=== PATIENT | female | born 1965 | race Caucasian/White ===

== ENCOUNTER → 2020-08-23 13:17 | Outpatient (BNV) | payer MEDICAID, SELFPAY | PROVIDERS: PCP Internal Medicine; Visit Provider Internal Medicine Medical Oncology | DX: C92.00 Acute myeloblastic leukemia, not having achieved remission (principal) | CPT/HCPCS: 99213; 99214 ==

== ENCOUNTER 2020-09-06 09:59 | Outpatient (REF) | payer MEDICAID, SELFPAY ==
--- NOTE | ~2020-09-06 | XR_ITS ---
EXAMINATION: XR SHOULDER, RIGHT CLINICAL INFORMATION: Pain in right shoulder COMPARISON: Pain in right shoulder TECHNIQUE: Three views of the right shoulder. FINDINGS: No fracture or dislocation. The glenohumeral joint is well aligned. Mild degenerative change with small osteophytes noted. The acromioclavicular joint is intact. The visualized lung is clear. The visualized ribs are intact. XR/XR shoulder RT min 2V IMPRESSION: No acute abnormality. Mild degenerative change of the glenohumeral joint.
== END 2020-09-06 10:00 | disposition home or self-care (01) ==
LOC: HO.HOSX 09:59
PROVIDERS: Visit Provider Physician Assistant
DX: G25.89 Other specified extrapyramidal and movement disorders (principal)
CPT/HCPCS: 73030; 99212

== ENCOUNTER 2020-09-25 14:00 | Outpatient (RCR) | payer MEDICAID, SELFPAY | END 2020-10-23 13:53 | disposition home or self-care (01) | LOC: HO.PT 14:00 | PROVIDERS: PCP Internal Medicine; Visit Provider Internal Medicine | DX: M25.511 Pain in right shoulder (principal); M54.6 Pain in thoracic spine | CPT/HCPCS: 97110; 97112; 97162 ==

== ENCOUNTER → 2020-09-25 14:36 | Outpatient (BNVA) | payer MEDICAID, SELFPAY | PROVIDERS: PCP Internal Medicine; Visit Provider Nurse Practitioner Family | DX: G25.89 Other specified extrapyramidal and movement disorders (principal); M54.2 Cervicalgia | CPT/HCPCS: 99202 ==

== ENCOUNTER 2021-08-28 12:31 | Outpatient (REF) | payer MEDICAID, SELFPAY ==
[2021-08-28 13:17] LABS: MANUAL DIFF FLAG NO
[2021-08-28 13:20] LABS: Basophils Percent Auto 0.5 % (0-2); Eosinophils Absolute Auto 0.1 X10*3/uL (0.0-0.4); Eosinophils Percent Auto 2.2 % (0-4); Hematocrit 39.9 % (37.0-47.0); Imm Gran Abs Auto 0.01 X10*3/uL (0.00-0.03); Imm Gran Pct Auto 0.2 % (0.0-0.4); Lymphocytes Absolute Auto 1.9 X10*3/uL (1.2-4.9); Lymphocytes Percent Auto 29.8 % (20-40); Mean Corpuscular HGB Conc 32.6 g/dl (31.0-35.0); Mean Corpuscular Hemoglobin 31.4 pg (27.0-33.0); Mean Corpuscular Volume 96.4 fL (80.0-98.0); Mean Platelet Volume 9.9 fL (9.4-12.3); Monocytes Absolute Auto 0.4 X10*3/uL (0.1-1.2); Monocytes Percent Auto 6.9 % (2-11); Neutrophils Absolute Auto 3.8 x10*3/uL (2.0-8.3); Neutrophils Percent Auto 60.4 % (45-73); Platelet Count 216 X10*3/uL (160-400); Red Blood Count 4.14 X10*6/uL (4.20-5.50); Red Cell Distribution Width 12.1 % (11.0-16.0); White Blood Count 6.4 X10*3/uL (4.8-10.8)
[2021-08-28 13:34] LABS: Appearance Urine CLOUDY; Color Urine YELLOW; Glucose Urine UA NEG (NEG); Leukocyte Esterase Urine 3+ (NEG); Nitrite Urine NEG (NEG); UACC Culture Trigger YES; Urine Blood TRACE (NEG); Urine Ketones NEG (NEG); Urine Protein NEG (NEG-TRACE)
[2021-08-28 13:44] LABS: Alanine Aminotransferase 14 U/L (0-31); Albumin Level 4.3 g/dL (3.5-5.0); Alkaline Phosphatase 84 U/L (39-117); Anion Gap 11 (12-20); Aspartate Amino Transferase 19 U/L (5-31); Bilirubin Total 0.5 mg/dL (0.0-1.0); Blood Urea Nitrogen 14 mg/dL (9-16); C Reactive Protein 0.86 mg/dL (< or = 0.50); Calcium 9.7 mg/dL (8.4-10.2); Carbon Dioxide 28 mmol/L (22-29); Chloride 104 mmol/L (96-108); Estimated Glomerular Filt Rate > 60; Glucose Random 92 mg/dL (60-115); Potassium 4.6 mmol/L (3.3-5.1); Sodium 138 mmol/L (135-145); Total Protein 7.7 g/dL (6.5-8.0)
[2021-08-28 13:53] LABS: Bacteria Urine 2+ /LPF; Squamous Epithelial Cell Urine 1+ /LPF
== END 2021-08-28 12:32 | disposition home or self-care (01) ==
LOC: HO.10HDL 12:31
PROVIDERS: Visit Provider Internal Medicine
DX: R30.0 Dysuria (principal); K21.9 Gastro-esophageal reflux disease without esophagitis
CPT/HCPCS: 36415; 80053; 81001; 85025; 86140; 87086; 87088; 87186

== ENCOUNTER 2021-09-11 07:49 | Outpatient (REF) | payer MEDICAID, SELFPAY | END 2021-09-11 07:50 | disposition home or self-care (01) | LOC: HO.LAB 07:49 | PROVIDERS: PCP Internal Medicine; Visit Provider Obstetrics & Gynecology | DX: Z01.419 Encounter for gynecological examination (general) (routine) without abnormal findings (principal); R35.0 Frequency of micturition; N85.00 Endometrial hyperplasia, unspecified; J30.9 Allergic rhinitis, unspecified; Z88.8 Allergy status to other drugs, medicaments and biological substances | CPT/HCPCS: 58100; 87086; 87088; 87186; 88305 ==

== ENCOUNTER 2021-09-25 10:58 | Outpatient (REF) | payer MEDICAID, SELFPAY ==
--- NOTE | ~2021-09-25 | MM_ITS ---
EXAMINATION: MM SCREENING DIGITAL BREAST TOMOSYNTHESIS, BILATERAL CLINICAL INFORMATION: Screening. Asymptomatic. Age 56. Search for local priors unsuccessful. Prior outside mammography at unknown facility. The lifetime risk of breast cancer based on the Tyrer-Cuzick Model is 9%. COMPARISON: None. TECHNIQUE: Digital breast tomosynthesis is performed in both the craniocaudal and mediolateral oblique views along with computer-aided detection (CAD). Synthesized 2D images are generated from the tomosynthesis. FINDINGS: There are scattered areas of fibroglandular density (ACR BI-RADS breast composition Category b). There are no significant masses, abnormal calcifications, or other abnormalities. There is a fine fibronodular parenchymal pattern. No architectural abnormality. The axilla and skin contours are unremarkable. MM/MM tomosynthesis screening BI IMPRESSION: No mammographic evidence of malignancy. ASSESSMENT: BI-RADS 1: Negative RECOMMENDATION: Routine annual mammography screening. This patient's information was entered into a reminder system with a target due date for their next mammogram.
== END 2021-09-25 10:59 | disposition home or self-care (01) ==
LOC: HO.MAMMO 10:58
PROVIDERS: PCP Internal Medicine; Visit Provider Internal Medicine
DX: Z12.31 Encounter for screening mammogram for malignant neoplasm of breast (principal)
CPT/HCPCS: 77063; 77067

== ENCOUNTER 2021-10-02 10:29 | Outpatient (REF) | payer MEDICAID, SELFPAY | END 2021-10-02 10:30 | disposition home or self-care (01) | LOC: HO.LAB 10:29 | PROVIDERS: PCP Internal Medicine; Visit Provider Obstetrics & Gynecology | DX: N85.00 Endometrial hyperplasia, unspecified (principal); N39.0 Urinary tract infection, site not specified | CPT/HCPCS: 87086; 99212 ==

== ENCOUNTER 2021-10-04 14:00 | Outpatient (RCR) | payer MEDICAID, SELFPAY | END 2021-10-21 12:45 | disposition home or self-care (01) | LOC: HO.PT 14:00 | PROVIDERS: PCP Internal Medicine; Visit Provider Internal Medicine | DX: M25.511 Pain in right shoulder (principal) | CPT/HCPCS: 97110; 97112; 97162 ==

== ENCOUNTER 2022-03-25 14:03 | Outpatient (REF) | payer MEDICAID, SELFPAY ==
[2022-03-25 15:08] LABS: Influenza A PCR NEGATIVE (Negative); Influenza B PCR NEGATIVE (Negative); Resp Syncy Virus RNA Qual PCR NEGATIVE (Negative); SARS COV2 PCR INHOUSE NEGATIVE (Negative)
== END 2022-03-25 14:04 | disposition home or self-care (01) ==
LOC: HO.LNP 14:03
PROVIDERS: Visit Provider Internal Medicine
DX: Z20.822 Contact with and (suspected) exposure to COVID-19 (principal); R05.9 Cough, unspecified; J02.9 Acute pharyngitis, unspecified
CPT/HCPCS: 0241U

== ENCOUNTER 2022-10-08 07:57 | Outpatient (REF) | payer MEDICAID, SELFPAY ==
--- NOTE | ~2022-10-08 | XR_ITS ---
EXAMINATION: XR KNEE, RIGHT CLINICAL INFORMATION: Pain. COMPARISON: None available. TECHNIQUE: Four views of the right knee. FINDINGS: Bones and soft tissues are normal. No fracture or joint effusion. Alignment is anatomic. Joint spaces are well maintained. No abnormal soft tissue calcification. XR/XR knee RT 2V IMPRESSION: Normal right knee.
[2022-10-08 09:45] LABS: Erythrocyte Sedimentation Rate 16 MM/HR (0-20)
[2022-10-09 19:59] LABS: Lyme Abs Screen <0.90 index
== END 2022-10-08 07:58 | disposition home or self-care (01) ==
LOC: HO.XRAY 07:57
PROVIDERS: PCP Internal Medicine; Visit Provider Psychiatry & Neurology Neurology
DX: M25.561 Pain in right knee (principal)
CPT/HCPCS: 36415; 73560; 85652; 86617; 86618

== ENCOUNTER 2022-11-07 09:51 | Outpatient (REF) | payer MEDICAID, SELFPAY ==
--- NOTE | ~2022-11-07 | MM_ITS ---
EXAMINATION: MM SCREENING DIGITAL BREAST TOMOSYNTHESIS, BILATERAL CLINICAL INFORMATION: Screening. Asymptomatic. The lifetime risk of breast cancer based on the Tyrer-Cuzick Model is 10%. COMPARISON: Mammography: 09/25/2021 (new baseline). TECHNIQUE: Digital breast tomosynthesis is performed in both the craniocaudal and mediolateral oblique views along with computer-aided detection (CAD). Synthesized 2D images are generated from the tomosynthesis. Additional bilateral CC views are provided. FINDINGS: There are scattered areas of fibroglandular density (ACR BI-RADS breast composition Category b). There are no significant masses, abnormal calcifications, or other abnormalities. Parenchymal pattern is similar to prior studies. There is no developing density or architectural abnormality. The axilla and skin contours are unremarkable. No significant changes. MM/MM tomosynthesis screening BI IMPRESSION: No mammographic evidence of malignancy. ASSESSMENT: BI-RADS 1: Negative RECOMMENDATION: Routine annual mammography screening. This patient's information was entered into a reminder system with a target due date for their next mammogram.
== END 2022-11-07 09:52 | disposition home or self-care (01) ==
LOC: HO.MAMMO 09:51
PROVIDERS: PCP Internal Medicine; Visit Provider Internal Medicine
DX: Z12.31 Encounter for screening mammogram for malignant neoplasm of breast (principal)
CPT/HCPCS: 77063; 77067

== ENCOUNTER 2022-11-14 10:02 | Outpatient (REF) | payer MEDICAID, SELFPAY ==
[2022-11-18 22:08] LABS: HPV mRNA E6/E7 rflx Not Detected (Not Detected)
== END 2022-11-14 10:03 | disposition home or self-care (01) ==
LOC: HO.LNP 10:02
PROVIDERS: PCP Internal Medicine; Visit Provider Advanced Practice Midwife
DX: Z01.419 Encounter for gynecological examination (general) (routine) without abnormal findings (principal); Z20.2 Contact with and (suspected) exposure to infections with a predominantly sexual mode of transmission; Z97.5 Presence of (intrauterine) contraceptive device
CPT/HCPCS: 87624; 88142

== ENCOUNTER 2023-08-27 08:02 | Outpatient (AMB) | payer MEDICAID, SELFPAY ==
--- NOTE | 2023-08-27 08:10 | MHC.OFFVIS ---
Intake Vital Signs 08/27/23 08:22 Height 5 ft 6 in Weight 149 lb 6 oz BMI 24.1 BP 108/70 Blood Pressure Location Lt brachial Position Sitting Respiration 16 Pulse 89 Pulse Source Pulse Oximeter Pulse Oximetry (%) 97 Oxygen Delivery Method Room Air Intake Visit Reasons: Back & Shoulder Pain Intake Note: Patient comes in for initial visit was referred by [facility] Hematology. Reports pain 7/10. Allergies ondansetron [From ZOFRAN ( HYDROCHLORIDE)] Allergy (Intermediate, Verified 08/27/23 08:23) INVOLUNTARY MOVEMENTS;MENTAL BLOCK allergic rhinitis Allergy (Unknown, Uncoded 08/11/23 13:12) itchy HPI Back & Shoulder Pain HPI Details Maki is very pleasant Albanian-speaking 58 years old female who is in my office complaining on pain in the right shoulder in the projection of the right shoulder blade as well as pain in the right knee and the right hip. She relates her pain in the knee and the hip to frequent falls she has in the past 3 years. She reports instant weakness in the right side of the body after which she falls. She was sent to neurologist for EMG on the right side which did not demonstrate any pathology. She was treated with our Oncology office for acute myeloid leukemia according to her she is currently in remission. 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 She reported that she saw her oncologist few days ago. We need to obtain the information about her condition from oncology office. She also was examined in the office of orthopedic surgery and diagnosed with scapular dyskinesia. She was recommended physical therapy. She also visited this office but it was 4 years ago her complaints were mostly cervicalgia. Now she presents in our office with different complaints. She reports her pain in the shoulder is 7/10 and pain in the lower back is 9/10 she also reports pain in the knee 7/10. She is able to do activities of daily living she is able to take care of herself she is unable to function normally. She reports that she is self mobile, cold application increase her pain and she applied heat with pain alleviation. The pain is worst at night and less severe in the morning. In terms of tissue damage he reports her pain is pulsing, throbbing, pounding, jumping, stabbing, lancinating, sharp, lacerating, tiring, exhausting, cool, cold, freezing sensation. Her past medical history significant for arthritis. She also in remission for acute myeloid leukemia. She denied any surgeries. She had EMG in the past which was according to her negative. [facility] Medical History Endometrial hyperplasia without atypia Leukemia Surgical History Hx of tubal ligation Family History Paternal Aunt Throat cancer Sister HX: breast cancer, Onset Age: 50 Maternal Aunt HX: breast cancer Asthma Mother Hypertension Social History Household Members: None Housing: Apartment Are you a primary healthcare architect to a significant other at home: No Do you presently have visiting nurse or other home services: No Alcohol intake: former Patient Tobacco Use Status: Never used Tobacco service: No Current occupational status: unemployed Review of Systems Const Reports body aches, Denies chills, Reports fatigue, Denies fever(s), Reports frequent falls, Denies headache(s), Denies night sweats, Reports weakness and Denies weight loss Eyes Denies photophobia ENT Reports Normal hearing present and Denies headache(s) Card Denies chest pain, Denies chest pain at rest, Denies chest pain with activity, Denies syncope, Denies radiating jaw, neck or arm pain, Denies dyspnea and Denies dyspnea on exertion Resp Denies cough, Denies pain on inspiration, Denies pain with cough, Denies dyspnea and Denies dyspnea on exertion GI Denies constipation and Denies fecal incontinence Denies urinary incontinence and Denies urinary hesitancy Musc Reports abnormal gait, Reports back pain, Reports muscle weakness, Denies numbness, Denies radiating pain into limb and Denies tingling Neuro Reports Normal hearing present, Reports abnormal gait, Denies syncope, Reports frequent falls, Denies headache(s), Denies numbness, Denies tingling and Reports weakness Endo Reports fatigue Physical Exam Vital Signs: Last Vital Signs Pulse 89 08/27/23 08:22 Resp 16 08/27/23 08:22 BP 108/70 08/27/23 08:22 Pulse Ox 97 03/21/24 08:22 Oxygen Delivery Method Room Air 08/27/23 08:22 BMI result Body Mass Index 24.1 Const General: cooperative, healthy appearing, no acute distress and alert Orientation/consciousness: patient oriented x3 Limitations: No ambulation with cane, No ambulation with walker and No wheelchair HEENT Head: Yes normal to inspection, Yes normocephalic and Yes atraumatic Ears: hearing grossly normal bilaterally Eyes General: appearance normal, both eyes and all related structures Eyelids: Yes eyelids normal Sclerae: sclerae normal Pupils: Equal, round and reactive pupils present EOM: EOMs intact bilaterally Direct Ophthalmoscopy: No photophobia Neck Neck: Yes normal visual inspection, Yes full ROM, Yes trachea midline and Yes no JVD Chest Chest palpation & inspection: normal inspection of the chest Resp Effort & Inspection: normal respiratory effort, able to speak in complete sentences and no audible wheezes Cardio Jugular venous distension: no JVD Palpation: other (no appreciable rhythmic abnormalities) Peripheral pulses: radial pulses present (no palpable rhythmic abnormalities detected) bilateral and other Back/Spine/Pelvis Cervical Spine: cervical ROM normal Neuro General: patient oriented x3, gait normal, moves all extremities and Normal light touch and pain sensation Cranial nerves: Yes CN's II-XII intact bilaterally (Tenderness on palpation right branch of trigeminal), Yes Equal, round and reactive pupils present and Yes Normal hearing present Cognition (Neuro): normal cognition Gait exam (Neuro): Normal gait present Motor exam (neuro): 5/5 motor strength present throughout, Pronator motor function not present, no tremor noted, Motor fasciculations not present and Abnormal motor strength present Extrem General: Yes normal to inspection, Yes full ROM and Yes no pedal edema Psych Appearance: grossly normal Speech and movement: Normal speech and movement present and Clear speech present Affect: normal affect Attitude: cooperative Thought process: Normal thought process present Thought content: Normal thought content present Insight: Good insight present (Psych) Judgement: Good judgement present (Psych) Assessment & Plan Assessment & Plan (1) Acute myeloid leukemia with minimal differentiation, in remission: Code(s): C92.01 - Acute myeloblastic leukemia, in remission (2) Weakness of right side of body: Code(s): R53.1 - Weakness Plan She reports weakness it intermittently on the right side of the body. She also reports pain mostly on the right side of the body. It might be that she has central conditions resulting in her acute intermittent right-sided weakness of the body. I will send her for the MRI of the brain with and without contrast to rule out intracranial pathology. She does not lose consciousness when she experiences weakness therefore I do not think this is a vascular problem. When her condition will be cleared out I will see her in 3 weeks and I will address the pain in the shoulder and pain in the knee with some injections. Orders: Orders MR head/brain wo/w con Today C92.01 - Acute myeloblastic leukemia, in remission, R53.1 - Weakness Patient Instructions: I here by testify that I spent 45 minutes in conversation with this patient as well as evaluating her prior records, planning her care, and organizing her note. Coding Level of Care Code New Pt Level 4 (16837) Diagnoses Acute myeloid leukemia with minimal differentiation, in remission C92.01 Weakness of right side of body R53.1
[2023-08-27 08:22] VITALS: BP 108/70; PULSE 89; RESP 16; O2SAT 97; BMI 24.1
== END 2023-08-27 08:40 | disposition home or self-care (01) ==
PROVIDERS: PCP Internal Medicine; Visit Provider Anesthesiology
DX: C92.01 Acute myeloblastic leukemia, in remission (principal); R53.1 Weakness
CPT/HCPCS: 99204

== ENCOUNTER → 2023-08-27 08:02 | Outpatient (BNVA) | payer MEDICAID, SELFPAY | PROVIDERS: PCP Internal Medicine; Visit Provider Anesthesiology | DX: C92.01 Acute myeloblastic leukemia, in remission (principal); R53.1 Weakness | CPT/HCPCS: 99202 ==

== ENCOUNTER 2023-10-19 14:36 | Outpatient (REF) | payer MEDICAID, SELFPAY ==
--- NOTE | ~2023-10-19 | XR_ITS ---
EXAMINATION: XR CHEST CLINICAL INFORMATION: Flulike symptoms with wheezing and URI COMPARISON: Chest radiograph 04/21/2018 TECHNIQUE: 2 views of the chest were obtained. FINDINGS: No significant abnormality is noted involving the heart, lungs, mediastinum, bony thorax or soft tissues. XR/XR chest 2V IMPRESSION: Unremarkable examination.
== END 2023-10-19 14:37 | disposition home or self-care (01) ==
LOC: HO.HHCX 14:36
PROVIDERS: Visit Provider Emergency Medicine
DX: R68.89 Other general symptoms and signs (principal)
CPT/HCPCS: 71046

== ENCOUNTER 2023-11-20 09:57 | Outpatient (AMB) | payer MEDICAID, SELFPAY ==
--- NOTE | 2023-11-20 10:01 | MHC.OFFVIS ---
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 Intake Note: no concerns Epic Professional Required: Yes Epic Professional Language: Electronic Science Teacher Name: Tracie PARIS Information Interpreted: non-clinical & clinical Cleaner And Trimmer: Cleaner And Trimmer Present (Tracie Hernandez RMA) Accompanied by: Self / Same As Patient Allergies ondansetron [From ZOFRAN ( HYDROCHLORIDE)] Allergy (Intermediate, Verified 11/20/23 10:08) INVOLUNTARY MOVEMENTS;MENTAL BLOCK allergic rhinitis Allergy (Unknown, Uncoded 11/20/23 10:08) itchy Post menopausal: Yes HPI Comments Details: 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 She is doing well with no concerns. History current Mirena IUD user, initially had an EMB February 2018 results: Endometrial hyperplasia, followed with a hysteroscopy D&C, results: Benign endometrium no atypia or hyperplasia. Attempting to eat a healthy diet with calcium and vitamin D and stays active with exercise. Currently sexually active. Denies any vaginal dryness or irritation. STI testing offered; she declines. Last pap smear; 2022, ASCUS. History of abnormal Paps years ago. Last mammogram; 2022. Colonoscopy is not UTD. [place] too anxious to have it completed. Denies any family history of ovarian or colon cancer. FH breast cancer-sister unknown BRCA status, she reports another sister was negative for BRCA. PFSH Medical History Endometrial hyperplasia without atypia Leukemia Surgical History Hx of tubal ligation Family History Paternal Aunt Throat cancer Sister HX: breast cancer, Onset Age: 50 Maternal Aunt HX: breast cancer Asthma Mother Hypertension Social History Household Members: None Housing: Apartment Are you a primary career technology teacher to a significant other at home: No Do you presently have visiting nurse or other home services: No Alcohol intake: former Patient Tobacco Use Status: Never used Tobacco service: No Current occupational status: unemployed Female Reproductive History Menstrual Menopause type: natural Total pregnancies: 3 Full term: 3 Number of Living Children: 3 Date of last pap smear: 11/17/22 Date of Mammogram: 11/07/22 Review of Systems Const All systems reviewed & are unremarkable except as noted in HPI and below Reports as per HPI Eyes Reports no additional complaints ENT Reports no additional complaints Card Reports no additional complaints Resp Reports no additional complaints GI Reports as per HPI and Reports no additional complaints Reports as per HPI Musc Reports no additional complaints Skin/Breast Reports as per HPI Neuro Reports no additional complaints Psych Reports no additional complaints Endo Reports no additional complaints Santiago/Lymph Reports no additional complaints Aller/Immun Reports no additional complaints Physical Exam Vital Signs: BMI result Body Mass Index 23.6 Const General: cooperative, healthy appearing, no acute distress, well developed and alert Orientation/consciousness: patient oriented x3 HEENT Head: Yes normal to inspection Eyes General: appearance normal, both eyes and all related structures Neck Neck: Yes normal visual inspection Thyroid: Thyroid normal Chest Chest palpation & inspection: normal inspection of the chest and other (no puckering, dimpling, peau de orange, retraction, discharge, masses) Breast/axilla inspection: normal inspection of the breasts Breast/axilla palpation: normal palpation of the breasts Resp Effort & Inspection: normal respiratory effort GI Inspection: Yes normal to inspection Palpation (GI): Soft to palpation Rectal Exam - Female: deferred General: Yes bladder normal to palpation External Female Exam: normal external appearance and normal appearance of the urethra Speculum Exam - Vagina: normal appearance of the vagina, normal palpation, normal vaginal discharge and vagina atrophic Speculum Exam - Cervix: normal appearance of the cervix, normal palpation and Other cervical findings present (IUD strings present at the os) Bimanual exam- vagina & uterus: normal bimanual exam, normal palpation, uterine size normal, bladder normal to palpation, normal palpation and non-tender Bimanual Exam- Adnexa, other: no masses Skin General skin exam: no rashes or lesions noted Rashes: no rashes Neuro General: patient oriented x3 Cognition (Neuro): normal cognition Extrem General: Yes normal to inspection Psych Attitude: cooperative Thought process: Normal thought process present Assessment & Plan Assessment & Plan (1) Encounter for well woman exam with routine gynecological exam: Code(s): Z01.419 - Encounter for gynecological examination (general) (routine) without abnormal findings (2) History of endometrial hyperplasia: Code(s): Z87.42 - Personal history of other diseases of the female genital tract Plan Discussed: Current recommendations for pap smears per ASCCP guidelines. Breast awareness, periodic self breast exams and yearly mammogram. Maintain a healthy lifestyle, well balanced diet including Calcium 1,200 mg and Vitamin D 600 IU daily, and routine exercise. Follow up for Mirena. Consider BRCA testing patient to talk to her oncologist. Contact the office with any postmenopausal bleeding. Patient verbalizes understanding and agrees to the plan of care. She was given opportunity to ask questions and all questions were answered to the best of my ability. 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 This note is constructed using voice recognition software. While every effort has been made to ensure accuracy, antenna engineer errors may have been included. Orders: Orders Pap Smear Today Z01.419 - Encounter for gynecological examination (general) (routine) without abnormal findings Coding Level of Care Code Est Pt Prev Care 40-64y(36236) Diagnoses Encounter for well woman exam with routine gynecological exam Z01.419 History of endometrial hyperplasia Z87.42
[2023-11-20 10:06] VITALS: BMI 23.6
== END 2023-11-20 10:45 | disposition home or self-care (01) ==
LOC: HO.HWS 09:57
PROVIDERS: PCP Internal Medicine; Visit Provider Advanced Practice Midwife
DX: Z01.419 Encounter for gynecological examination (general) (routine) without abnormal findings (principal); Z87.42 Personal history of other diseases of the female genital tract
CPT/HCPCS: 99396

== ENCOUNTER 2023-11-20 09:57 | Outpatient (REF) | payer MEDICAID, SELFPAY ==
[2023-11-25 20:44] LABS: HPV mRNA E6/E7 rflx Not Detected (Not Detected)
== END 2023-11-20 09:58 | disposition home or self-care (01) ==
LOC: HO.LNP 09:57
PROVIDERS: PCP Internal Medicine; Visit Provider Advanced Practice Midwife
DX: Z01.419 Encounter for gynecological examination (general) (routine) without abnormal findings (principal)
CPT/HCPCS: 87624; 88142; 99396

== ENCOUNTER 2024-01-06 09:01 | Outpatient (REF) | payer MEDICAID, SELFPAY ==
[2024-01-06 11:22] LABS: MANUAL DIFF FLAG NO
[2024-01-06 11:37] LABS: Basophils Percent Auto 0.5 % (0-2); Eosinophils Absolute Auto 0.1 X10*3/uL (0.0-0.4); Eosinophils Percent Auto 1.8 % (0-4); Hematocrit 38.3 % (37.0-47.0); Hemoglobin 12.7 g/dl (12.0-16.0); Imm Gran Abs Auto 0.01 X10*3/uL (0.00-0.03); Imm Gran Pct Auto 0.2 % (0.0-0.4); Lymphocytes Absolute Auto 1.3 X10*3/uL (1.2-4.9); Lymphocytes Percent Auto 29.3 % (20-40); Mean Corpuscular HGB Conc 33.2 g/dl (31.0-35.0); Mean Corpuscular Hemoglobin 30.8 pg (27.0-33.0); Mean Platelet Volume 9.9 fL (9.4-12.3); Monocytes Absolute Auto 0.3 X10*3/uL (0.1-1.2); Neutrophils Absolute Auto 2.7 x10*3/uL (2.0-8.3); Neutrophils Percent Auto 61.2 % (45-73); Platelet Count 205 X10*3/uL (160-400); Red Blood Count 4.12 X10*6/uL (4.20-5.50); Red Cell Distribution Width 12.6 % (11.0-16.0); White Blood Count 4.4 X10*3/uL (4.8-10.8)
[2024-01-06 11:49] LABS: Estimated Average Glucose 94 mg/dL; Hemoglobin A1c % 4.9 % (<6.0)
[2024-01-06 12:13] LABS: Alanine Aminotransferase 9 U/L (0-31); Albumin Level 4.2 g/dL (3.5-5.0); Alkaline Phosphatase 75 U/L (39-117); Anion Gap 10 (12-20); Aspartate Amino Transferase 17 U/L (5-31); Bilirubin Total 0.6 mg/dL (0.0-1.0); Blood Urea Nitrogen 13 mg/dL (9-16); Calcium 9.8 mg/dL (8.4-10.2); Carbon Dioxide 25 mmol/L (22-29); Chloride 107 mmol/L (96-108); Cholesterol 187 mg/dL (<200); Estimated Glomerular Filt Rate > 60; Glucose Random 90 mg/dL (60-115); HDL Cholesterol 49 mg/dL (>40); LDL Cholesterol Calculated 120 mg/dL (<100); Potassium 3.6 mmol/L (3.3-5.1); Sodium 138 mmol/L (135-145); TSH reflex Free T4 3.41 uIU/mL (0.32-4.0); Total Protein 7.7 g/dL (6.5-8.0); Triglycerides 90 mg/dL (<150); Vitamin D 25-OH Total 46.4 ng/mL (>30)
[2024-01-06 12:14] LABS: HBS Num1 0.61 mIU/mL (0-7.99); HBc Num1 0.09 S/CO (0.00-0.79); HBsAGNum1 0.26 S/CO (0.00-0.99); HIV AB/AG Nonreactive (Nonreactive); HIV Num 1 0.05 S/CO (0.00-0.99); Hepatitis A Antibody IgM 0.26 Index (0-0.79); Hepatitis B Core Antibody Nonreactive (Nonreactive); Hepatitis B Surface Antigen Negative (Negative); ~HepC Num1 0.09 S/CO (0.00-0.79); ~Hepatitis A Antibody IgM Nonreactive (Nonreactive); ~Hepatitis B Surface Antibody NONREACTIVE (Nonreactive); ~Hepatitis C Antibody Nonreactive (Nonreactive)
[2024-01-06 12:29] LABS: Erythrocyte Sedimentation Rate 19 MM/HR (0-20)
[2024-01-06 13:04] LABS: Reflex LDLD? No
== END 2024-01-06 09:02 | disposition home or self-care (01) ==
LOC: HO.HHCL 09:01
PROVIDERS: Visit Provider Internal Medicine
DX: C95.91 Leukemia, unspecified, in remission (principal); R53.1 Weakness; M54.16 Radiculopathy, lumbar region; F33.41 Major depressive disorder, recurrent, in partial remission
CPT/HCPCS: 36415; 80053; 80061; 82306; 83036; 84443; 85025; 85652; 86704; 86706; 86709; 86803; 87340; 87389

== ENCOUNTER 2024-06-10 11:40 | Outpatient (REF) | payer MEDICAID, SELFPAY | END 2024-06-10 11:41 | disposition home or self-care (01) | LOC: HO.LNP 11:40 | PROVIDERS: Visit Provider Emergency Medicine | DX: K21.9 Gastro-esophageal reflux disease without esophagitis (principal) | CPT/HCPCS: 87338 ==

== ENCOUNTER 2024-06-15 12:50 | Outpatient (AMB) | payer MEDICAID, SELFPAY ==
[2024-06-15 12:52] VITALS: BP 94/74; PULSE 74; O2SAT 98; BMI 22.9
--- NOTE | 2024-06-15 12:52 | MHC.OFFVIS ---
Vital Signs 06/15/24 12:52 Height 5 ft 6 in Weight 141 lb 15.643 oz BMI 22.9 BP 94/74 Blood Pressure Location Rt brachial Position Sitting Pulse 74 Pulse Source Pulse Oximeter Pulse Oximetry (%) 98 Oxygen Delivery Method Room Air Intake Visit Reasons: Colonoscopy/EGD scrn, + Cologuard Intake Note: NEW PATIENT Reason; [place] scrn Prior hx of colo/egd? 08/26/2018 RM Concerns/Questions? Pt is currently taking antibiotics for suspected stomach infection per Urgent Care. Will attempt to locate notes. Pt has been having gas, bloating, reflux, etc. Scroll Saw Operator Required: Yes Scroll Saw Operator Services: Scroll Saw Operator Present Scroll Saw Operator Name: Galina [id number] Information Interpreted: non-clinical & clinical Accompanied by: Self / Same As Patient Allergies ondansetron [From ZOFRAN ( HYDROCHLORIDE)] Allergy (Intermediate, Verified 06/15/24 14:02) INVOLUNTARY MOVEMENTS;MENTAL BLOCK allergic rhinitis Allergy (Unknown, Uncoded 02/12/24 09:53) itchy Medication List - Last Reconciled 06/15/24 by FERMIN Barksdale-BC amoxicillin 250 mg PO Q12H buspirone 10 mg PO BID clarithromycin 250 mg PO BID cyclobenzaprine 10 mg PO BEDTIME PRN famotidine (Pepcid AC) 10 mg PO DAILY fluticasone propionate 50 mcg/actuation (Flonase Allergy Relief) 1 spray intranasal BID levonorgestrel (Mirena) 21 mcg intrauterine DAILY loratadine (Claritin) 10 mg PO DAILY montelukast 10 mg PO DAILY nabumetone (Relafen) 500 mg PO DAILY omeprazole 20 mg PO BID sucralfate 10 mL PO QID HPI HPI Colonoscopy/EGD scrn, + Cologuard: Details: 59-year-old female with past medical history of myeloid leukemia(in remission), endometrial hyperplasia without atypia is here today for initial consultation. Patient was sent to us by her PCP. Patient had positive Cologuard and referral was made. Patient denies any melena, hematochezia, unintentional weight loss or ribbon like stools. Just few days ago patient was diagnosed with H pylori and started treatment yesterday. Patient was also given sucralfate and was taking that 4 times a day. Patient denies any nausea or vomiting. Currently her symptoms are controlled with sucralfate. She was given amoxicillin, clarithromycin and omeprazole. Patient is worried that she might have reaction to antibiotics as she believes she had an reaction to antibiotics before. Patient does not remember the name. Patient reports occasional dyspepsia without dysphagia or odynophagia. Otherwise patient reports to have a good appetite. [facility] Medical History (Updated 06/15/24 @ 20:16 by Jami Campos [facility]) History of Helicobacter pylori infection Endometrial hyperplasia without atypia Leukemia Surgical History Hx of tubal ligation Family History Paternal Aunt Throat cancer Sister HX: breast cancer, Onset Age: 50 Maternal Aunt HX: breast cancer Asthma Mother Hypertension Social History Household Members: None Housing: Apartment Are you a primary career development specialist to a significant other at home: No Do you presently have visiting nurse or other home services: No Alcohol intake: former Patient Tobacco Use Status: Never used Tobacco service: No Current occupational status: unemployed Physical Exam Vital Signs: Last Vital Signs Pulse 74 06/15/24 12:52 BP 94/74 06/15/24 12:52 Pulse Ox 98 06/15/24 12:52 Oxygen Delivery Method Room Air 06/15/24 12:52 BMI result Body Mass Index 22.9 Assessment & Plan Assessment & Plan (1) History of Helicobacter pylori infection: Code(s): Z86.19 - Personal history of other infectious and parasitic diseases Category: Medical (2) Positive colorectal cancer screening using Cologuard test: Code(s): R19.5 - Other fecal abnormalities (3) Screen for colon cancer: Code(s): Z12.11 - Encounter for screening for malignant neoplasm of colon (4) Postprandial epigastric pain: Code(s): R10.13 - Epigastric pain Plan Patient will continue taking antibiotics and will take sucralfate at bedtime only. Avoid dietary triggers and late night snacking. Staying upright for minimum 3 hours after meals discussed with patient. Patient will return in 2 weeks to discuss going for colonoscopy and upper endoscopy. We will re-evaluate treatment for H pylori. Patient will need to be retested for eradication of bacteria. Patient is agreeable to this plan and verbalizes understanding of instructions. She was given the opportunity to ask questions and all questions answered. Thank you for allowing me to participate in her care Medications: New sucralfate 10 mL PO BEDTIME 400 mL 0RF Coding Level of Care Code New Pt Level 4 (62597) Diagnoses History of Helicobacter pylori infection Z86.19 Positive colorectal cancer screening using Cologuard test R19.5 Screen for colon cancer Z12.11 Postprandial epigastric pain R10.13 Time Spent (min) 45 Comment 30 minutes spent with patient and additional 15 minutes spent reviewing her records
== END 2024-06-15 14:37 | disposition home or self-care (01) ==
PROVIDERS: PCP Internal Medicine; Visit Provider Nurse Practitioner Family
DX: Z12.11 Encounter for screening for malignant neoplasm of colon (principal); R19.5 Other fecal abnormalities; Z86.19 Personal history of other infectious and parasitic diseases; R10.13 Epigastric pain
CPT/HCPCS: 99202

== ENCOUNTER → 2024-06-15 12:50 | Outpatient (BNVA) | payer MEDICAID, SELFPAY | PROVIDERS: PCP Internal Medicine; Visit Provider Nurse Practitioner Family | DX: Z12.11 Encounter for screening for malignant neoplasm of colon (principal); R19.5 Other fecal abnormalities; R10.13 Epigastric pain; Z86.19 Personal history of other infectious and parasitic diseases | CPT/HCPCS: 99212 ==

== ENCOUNTER → 2024-06-29 13:31 | Outpatient (BNVA) | payer MEDICAID, SELFPAY | PROVIDERS: PCP Internal Medicine; Visit Provider Nurse Practitioner Family | DX: Z01.818 Encounter for other preprocedural examination (principal); R19.5 Other fecal abnormalities; R10.13 Epigastric pain; Z86.19 Personal history of other infectious and parasitic diseases ==

== ENCOUNTER 2024-07-05 10:11 | Outpatient (AMB) | payer MEDICAID, SELFPAY ==
--- NOTE | 2024-07-05 10:44 | MHC.OFFVIS ---
Vital Signs 07/05/24 10:50 Height 5 ft 6 in Weight 144 lb BMI 23.2 BP 110/70 Intake Visit Reasons: IUD removal/ insertion Pageant Director Required: Yes Pageant Director Language: Flight Tower Dispatcher Name: Marley [id number] Information Interpreted: non-clinical & clinical Hobbing Machine Operator: Hobbing Machine Operator Present (Tianna) Allergies ondansetron [From ZOFRAN ( HYDROCHLORIDE)] Allergy (Intermediate, Verified 07/05/24 10:46) INVOLUNTARY MOVEMENTS;MENTAL BLOCK Seasonal Allergies Allergy (Mild, Verified 07/05/24 10:46) Sneezing HPI Comments Details: Patient is here today for an IUD removal history of endometrial hyperplasia without atypia 2018 has had a Mirena IUD in place. Prior repeat endometrial biopsy and curettage were benign. She has no bleeding concerns. [facility] Medical History (Updated 07/05/24 @ 11:57 by Juany Hui CNM) History of endometrial hyperplasia History of Helicobacter pylori infection Endometrial hyperplasia without atypia Leukemia Surgical History Hx of tubal ligation Family History Paternal Aunt Throat cancer Sister HX: breast cancer, Onset Age: 50 Maternal Aunt HX: breast cancer Asthma Mother Hypertension Social History Household Members: None Housing: Apartment Are you a primary morning caregiver to a significant other at home: No Do you presently have visiting nurse or other home services: No Alcohol intake: former Patient Tobacco Use Status: Never used Tobacco service: No Current occupational status: unemployed Review of Systems Const All systems reviewed & are unremarkable except as noted in HPI and below Physical Exam Vital Signs: Last Vital Signs BP 110/70 07/05/24 10:50 BMI result Body Mass Index 23.2 Const General: cooperative, healthy appearing and no acute distress Orientation/consciousness: patient oriented x3 GI Inspection: Yes normal to inspection Palpation (GI): Soft to palpation and Other GI palpation findings present (Nontender) Rectal Exam - Female: visual inspection normal General: Yes bladder normal to palpation External Female Exam: normal appearance of the urethra Speculum Exam - Vagina: normal appearance of the vagina, normal palpation and normal vaginal discharge Speculum Exam - Cervix: normal appearance of the cervix, normal palpation and Other cervical findings present (IUD strings at the os) Bimanual exam- vagina & uterus: normal bimanual exam, normal palpation, uterine size normal, bladder normal to palpation, normal palpation, uterine shape normal and non-tender Bimanual Exam- Adnexa, other: normal adnexae Neuro General: patient oriented x3 Office Procedures IUD Insert/Removal Details Details: The patient presents today for a IUD removal. ? She was counseled regarding the removal of her IUD. She was consented for the procedure along with anticipatory guidance for the removal and the consents form was signed. She desires to proceed with the IUD removal. IUD Removal Procedure: The patient was placed in the dorsal lithotomy position. A speculum was inserted vaginally and the cervix and strings were visualized at the os. A ring forcep was utilized, and the patient was asked to give a deep cough while the strings were grasped and gently tugged at the same time, removing the IUD device intact. Minimal bleeding was observed. All of the equipment was removed. The patient tolerated the procedure well and left the office in good condition. IUD Removal Information: You may have light bleeding for several days, tapering off to a brown or pink color. Mild cramping after removal is common. If not allergic, you may take an over the counter mild analgesic for the discomfort, such as Tylenol or Advil (use dosing and frequency per the manufacturers recommendations). Call the office if you experience: fever (over 100.4), flu like symptoms, abdominal or pelvic pain, foul smelling discharge or heavy bleeding. This note is constructed using voice recognition software. ?While every effort has been made to ensure accuracy, emergency management system director errors may have been included. ? 71079-EIV Removal Procedure code (CPT) selection complete Assessment & Plan Assessment & Plan (1) History of endometrial hyperplasia: Code(s): Z87.42 - Personal history of other diseases of the female genital tract Category: Medical (2) Encounter for IUD removal: Code(s): Z30.432 - Encounter for removal of intrauterine contraceptive device Plan Consulted with Dr. Quinn regarding her plan of care supported removing the IUD and not replacing it, observing for any PMB, and recheck the endometrial lining ultrasound in 3 months, if patient has any postmenopausal bleeding recommendations would be referral for surgical hysterectomy. Recommended follow up ultrasound 3 months in in-person office visit. Total time I personally spent on visit and management today: ?20 minutes. Time spent included review of pertinent office notes in the electronic health record; review of laboratory and imaging results; review of personal family medical history; performing physical exam; discussing diagnosis and plan of care with the patient; documenting the encounter in the EMR. The patient expressed understanding and agreement with the plan of care. All of her questions and concerns were addressed to the best of my ability. This note is constructed using voice recognition software. While every effort has been made to ensure accuracy, emergency management system director errors may have been included. Orders: Orders US pelvic and transvaginal 09/26/24 N85.00 - Endometrial hyperplasia, unspecified, Z87.42 - Personal history of other diseases of the female genital tract Coding Level of Care Code Est Pt Level 2 (69626) Procedure Only Diagnoses History of endometrial hyperplasia Z87.42 Encounter for IUD removal Z30.432 CPT Codes Details - CPT: 07204-ADV Removal ([id number])
[2024-07-05 10:50] VITALS: BP 110/70; BMI 23.2
--- OUTSIDE RECORDS SUMMARY | 2024-07-05 11:01 | XMS_ITS | Encounter Summary ---
Author Organization [employer] Address [address] [place] [address] Care Team Providers Care Television Writer Name Role Phone Sade Zhou MD Primary Care Provider + Reason for Visit * Reason Comments GERD Nausea Back Pain Encounter Details Date Type Department Care Team (Latest Contact Info) Description 06/06/2024 10:00 AM EST Office Visit [facility] [address] [place] [address] Rik Hunter MD [address] [place] [address] Gastroesophageal reflux disease, unspecified whether esophagitis present (Primary Dx) Social History Tobacco Use Types Packs/Day Years Used Date Smoking Tobacco: Never Smokeless Tobacco: Never Alcohol Use Standard Drinks/Week Comments Never 0 (1 standard drink = 0.6 oz pur e alcohol) Depression Answer Date Recorded Patient Health Questionnaire-9 Score 13 01/04/2024 Patient Health Questionnaire-9 Score 13 01/04/2024 Last PHQ-9: Questionnaire Data Not on file 0 01/04/2024 Housing Stability Answer Date Recorded What is your housing situation today? I have yung forte 12/25/[address] you li ve. Do you have problems with any of the following? None of the above 12/25/2023 Food Insecurity Answer Date Recorded Within the past 12 months, y ou worried that your food would run out before you got money to buy more: Never True 12/25/2023 Within the past 12 months,th e food you bought just didn't last and you didn't have enough money to get more: Never True Transportation Answer Date Recorded In the past 12 months, has l ack of transportation kept you from medical appts, meetings, work or from getting things needed for daily living? No 12/25/2023 Utilities Answer Date Recorded In the past 12 months, has t he electric, gas, oil or water company threatened to shut off services in your home? No 12/25/2023 Depression Answer Date Recorded Patient Health Questionnaire-2 Score 6 01/04/2024 Internet Access Answer Date Recorded Internet Access Q1 Yes 02/08/2024 Internet Access Q2 Not on file 02/08/2024 Comments No Sex and Gender Information Value Date Recorded Sex Assigned at Female 06/10/2023 11:28 AM EST Legal Sex Female 2:00 PM EST Gender Identity Female 06/10/2023 11:28 AM EST Sexual Orientation Straight 06/10/2023 11 :28 AM EST documented as of this encounter Last Filed Vital Signs Vital Sign Reading Time Taken Comments Blood Pressure 117/78 06/06/2024 10:10 AM EST Pulse 95 06/06/2024 10:10 AM EST Temperature 36.8 ??C (98.2 ??F) 06/06/2024 10:[address] Respiratory Rate 18 06/06/2024 10:10 AM EST Oxygen Saturation 99% 06/06/2024 10:10 AM EST Inhaled Oxygen Concentration - - Weight - - Height - - Body Mass Index - - documented in this encounter Progress Notes * Rik Hunter MD - 06/06/2024 10:00 AM EST Subjective Patient ID: Maki Broussard is a 59 y.o. female. Insurance Claims Analyst: Ling BENSON Maki has 1 month h/o nausea, reflux. No abd pain, vomiting or diarrhea. Taking Pepcid that does not help that was prescribed 06/2023 for reflux. Had similar sx starting 3 years ago that comes and goes. Abd surgery: BTL. Has [facility] derek't in 9 days. + Cologuard test 03/2024 Lives with . Never smoked. No EtOH. No illicit substances. Not employed. 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 Respiratory: Negative for shortness of breath. Cardiovascular: Negative for chest pain. Gastrointestinal: Positive for nausea. Negative for abdominal pain, diarrhea and vomiting. Skin: Negative for rash. Neurological: Negative for headaches. Objective Physical Exam Constitutional: Appearance: Normal appearance. HENT: Right Ear: Tympanic membrane, ear canal and external ear normal. Left Ear: Tympanic membrane, ear canal and external ear normal. Nose: Nose normal. Mouth/Throat: Mouth: Mucous membranes are moist. Pharynx: Oropharynx is clear. Eyes: Conjunctiva/sclera: Conjunctivae normal. Pupils: Pupils are equal, round, and reactive to light. Cardiovascular: Rate and Rhythm: Normal rate and regular rhythm. Heart sounds: No murmur heard. Pulmonary: Effort: Pulmonary effort is normal. Breath sounds: Normal breath sounds. Abdominal: General: Abdomen is flat. Palpations: Abdomen is soft. Tenderness: There is no abdominal tenderness. There is no right CVA tenderness or left CVA tenderness. Musculoskeletal: General: Normal range of motion. Cervical back: No tenderness. Skin: Findings: No rash. Neurological: Mental Status: She is alert. Gait: Gait is intact. Psychiatric: Mood and Affect: Mood normal. Behavior: Behavior normal. Procedures Assessment/Plan Diagnoses and all orders for this visit: Gastroesophageal reflux disease, unspecified whether esophagitis present H pylori stool Ag ordered. Will call pt with results. Prescribed Carafate and acetaminophen; I avoided a PPI because of [facility] derek't in 9 days in case they do an EGD. I tried to contact [facility] office, but was unable to get through to notify them of her GERD sx; she is not sure why she was referred there, but most likely due to + Cologuard. Will try to notify them again. - Helicobacter pylori Antigen, EIA, Stool; Future Other orders - sucralfate (Carafate) 1 GM/10ML suspension; Take 10 mL (1 g) by mouth 4 times daily. - acetaminophen (Tylenol) 500 MG tablet; Take 2 tablets (1,000 mg) by mouth every 6 (six) hours if needed for moderate pain or fever for up to 25 doses. * Cristy Marquez RN - 06/06/2024 10:00 AM EST TC placed to [facility] at [phone], per verbal request per Dr. Hunter, regarding adding EGD as pt reporting to provider today, has three year hx of GERD and appt with GI on 06/15/23 for ?cologuard. Noanswer. Detailed voice message left for [facility] with return information to contact [facility] if needed. GI/pt to F/U as needed. documented in this encounter Plan of Treatment Upcoming Encounters Date Type Department Care Team (Late st Contact Info) Description 07/21/2024 11:45 AM EST Office Visit [facility] [address], [place] [phone] Sade Zhou MD [address] [place] [address] documented as of this encounter Procedures Procedure Name Priority Date/Time Associated Diagnosis Comments HELICOBACTER PYLORI AG, EIA, STOOL Routine 06/10/2024 8:55 AM EST Gastroesophageal reflux disease, unspecified whether esophagitis present documented in this encounter Results * (ABNORMAL) Helicobacter pylori??Antigen, EIA, Stool (06/10/2024 8:55 AM EST) H pylori Ag Stool SEE NOTE(A) LABS Comment:HELICOBACTER PYLORI AG, EIA, STOOL Micro Number: [id number] Test Status: Final Specimen Source: Stool Specimen Quality: Adequate H.pylori Ag: Detected Reference Range: Not DetectedTHIS TEST WAS PERFORMED AT:[facility] [place] [id number] MORALES MD Stool Rectal contents / Unknown 06/10/2024 8:55 AM EST 06/10/2024 11:49 AM EST us Rik Hunter MD LAB BODY FLUIDS AND STOOLS ORDER LAZARA Final Result LABS [address] [place] [address] [phone] documented in this encounter Visit Diagnoses Diagnosis Gastroesophageal reflux disease, unspecified whether esophagitis present- Primary documented in this encounter Additional Health Concerns Assessment Noted Time PHQ-9 Depression Total Score: 13 024 10:36 AM EDT documented as of this encounter Care Teams Television Writer Relationship Specialty Start Date End Date Sade Zhou MD [address] [place] [id number] PCP - General Internal Medicine 01/04/24 documented as of this encounter
--- OUTSIDE RECORDS SUMMARY | 2024-07-05 11:01 | XMS_ITS | Encounter Summary ---
Author Organization [employer] Address [address] [place] [address] Care Team Providers Care Spacecraft Systems Engineer Name Role Phone Sade Zhou MD Primary Care Provider + Encounter Details Date Type Department Care Team ([facility] st Contact Info) Description 06/14/2024 Orders Only [facility] [address] [place] [address] Rik Hunter MD [address] [place] [address] H. pylori infection (Primary Dx) Social History Tobacco Use Types [...] AM EST documented as of this encounter Plan of Treatment Upcoming Encounters Date Type Department Care Team (Late st Contact Info) Description 07/21/2024 11:45 AM EST Office Visit [facility] [address] [place] [id number] Sade Zhou MD [address] [place] [phone] Scheduled Orders Name Type Priority Associated Diagnoses Orde r Schedule Helicobacter pylori??Antigen, EIA, Stool Lab Routine H. pylori infection Expected: 06/14/2024 (Approximate), Expires: 06/14/2025 documented as of this encounter Visit Diagnoses Diagnosis H. pylori infection- Primary Helicobacter pylori (H. pylori) documented in this encounter Additional Health Concerns Assessment Noted Time PHQ-9 Depression Total Score: 13 024 10:36 AM EDT documented as of this encounter Care Teams Spacecraft Systems Engineer Relationship Specialty Start Date End Date Sade Zhou MD [address] [place] [id number] PCP - General Internal Medicine 01/04/24 documented as of this encounter
--- OUTSIDE RECORDS SUMMARY | 2024-07-05 11:01 | XMS_ITS | Encounter Summary ---
Author Organization [employer] Address [address] [place] [address] Care Team Providers Care Senior Commissions Analyst Name Role Phone Sade Zhou MD Primary Care Provider + Encounter Details Date Type Department Care Team ([facility] st Contact Info) Description 06/14/2024 Telephone [facility] [address] [place] [address] Rik Hunter MD [address] [place] [address] Social History Tobacco Use Types Packs/Day Years [...] AM EST documented as of this encounter Miscellaneous Notes * Telephone Encounter - Alicja Mosley RN - 06/14/2024 9:31 AM EST ----- Message from Rik Hunter MD sent at 06/14/2024 8:29 AM EST ----- Please notify Maki that her H pylori stool Ag was positive. I send Rxs for triple therapy for 2 weeks to [facility] pharmacy. 4 weeks after finishing the meds, could she return to [facility] lab for repeat stool specimen to test for eradication? Thanks. Paras HARVEY placed to pt and the message above was discussed, pt to supervisor opening and picking meds and will go to lab as directed when time. documented in this encounter Plan of Treatment Upcoming Encounters Date Type Department Care Team (Late st Contact Info) Description 07/21/2024 11:45 AM EST Office Visit [facility] [address] [place] [address] Sade Zhou MD [address] [place] [address] documented as of this encounter Visit Diagnoses Not on filedocumented in this encounter Additional Health Concerns Assessment Noted Time PHQ-9 Depression Total Score: 13 01/03/ 024 10:36 AM EDT documented as of this encounter Care Teams Senior Commissions Analyst Relationship Specialty Start Date End Date Sade Zhou MD [address] [place] [id number] PCP - General Internal Medicine 01/04/24 documented as of this encounter
--- OUTSIDE RECORDS SUMMARY | 2024-07-05 11:01 | XMS_ITS | Clinical Summary ---
Author Organization [employer] Address [address] [facility] 7[address] [place] [address] Care Team Providers Care Base Cloth Inspector Name Role Phone Sade Zhou MD Primary Care Provider + Allergies Active Allergy Reactions Criticality Noted Date Comments Hydroxyzine 01/04/2024 Intolerance: Dry mouth, nausea. Mirtazapine 01/04/2024 GI intolerance Ondansetron 06/10/2023 Zolpidem 01/04/2024 Had EP symptoms Medications Spacer/Aero-Hold ing Chambers (OptiChamber Dora) misc 1 each every 4 (four) hours if needed (asthma). 1 each 06/10/19 24 Active famotidine (Pepcid) 10 MG tablet Take 10 mg by mouth 1 (one) time each day. Active Levonorgestrel 20 MCG/DAY intrauterine device by Intrauterine route. Active montelukast (Singulair) 10 MG tablet Take 10 mg by mouth 1 (one) time each day. Active albuterol 108 (90 Base) MCG/ACT inhalerIndicatio ns:Acute cough Inhale 2 puffs every 4 (four) hours if needed for wheezing or shortness of breath. 18 g 1 11/23/19 24 025 Active cetirizine (ZyrTEC) 10 MG tabletIndication s:Post-nasal drip 1 tab daily by mouth as needed for allergies 90 tablet 11/23/19 24 Active busPIRone (Buspar) 10 MG tablet Take 1 tablet (10 mg) by mouth at bedtime. 30 tablet 3 01/04/20 24 Active LORazepam (Ativan) 0.5 MG tablet Take half tablet PO 1h prior to procedure, repeat in 1h if needed for anxiety 1 tablet 07/29/20 24 Active cyclobenzaprine (Flexeril) 10 MG tabletIndication s:Strain of cervical portion of right trapezius muscle TAKE 1 TABLET BY MOUTH AT BEDTIME NEEDED FOR PAIN OF MUSCLES, DO NOT DRIVE WITH MEDICATION 30 tablet 03/17/20 24 Active nabumetone (Relafen) 500 MG tabletIndication s:Radiculopathy, lumbar region Take 1 tablet (500 mg) by mouth 2 times daily. 180 tablet 3 03/25/20 24 Active fluticasone (Flonase) 50 MCG/ACT nasal sprayIndications :Post-nasal drip Administer 1 spray into each nostril 2 times daily. 16 g 3 03/25/20 24 Active sucralfate (Carafate) 1 GM/10ML suspension Take 10 mL (1 g) by mouth 4 times daily. 1200 mL 06/06/20 24 025 Active acetaminophen (Tylenol) 500 MG tablet Take 2 tablets (1,000 mg) by mouth every 6 (six) hours if needed for moderate pain or fever for up to 25 doses. 50 tablet 06/06/20 24 Active omeprazole (PriLOSEC) [address] capsule Take 1 capsule (20 mg) by mouth before breakfast and before evening meal for 14 days. Do not crush or chew. 28 capsule 06/14/19 25 Active amoxicillin (Amoxil) 500 MG capsule Take 2 capsules (1,000 mg) by mouth 2 times daily for 14 days. 56 capsule 06/14/19 25 025 clarithromycin (Biaxin) 500 MG tablet Take 1 tablet (500 mg) by mouth 2 times daily for 14 days. 28 tablet 06/14/19 25 025 Active Problems Problem Noted Date Diagnosed Date H. pylori infection 06/14/2024 Positive colorectal cancer screening using Colog uard test 03/24/2024 Overview (03/24/2024): Will refer to GI. Hyperlipidemia LDL goal <130 03/07/2024 Assessment & Plan (03/07/2024 4:31 PM EDT): We discussed re rx options. Recommended moderate amount of exercise and increase consumption of fruit, vegetables, fish and high fiber foods. Should decrease consumption of highly saturated fats or trans fats. FU lipids in 1y Encounter for colorectal cancer screening 2023 Assessment & Plan (03/07/2024 4:32 PM EDT): D/w her re screening options including colonoscopy and Cologuard. She prefers to have cologuard, she understands that if it is POS, a colonoscopy will be recommended. FU w me in 6m or earlier prn. VALDIVIA (dyspnea on exertion) 01/05/2024 Assessment & Plan (03/07/2024 4:27 PM EDT): Likely residual bronchospasm sp covid. Advised to continue Singulair for now, use albuterol prn only. She declined Covid and Influenza IZ today, advised to get them at earliest convenience. She declined PCV vax as well. We'll do methacholine test next year if sxs persist, Assessment & Plan (01/05/2024 9:38 AM EDT): Sp COVID/Flu , ro asthma, reactive bronchospasm Order PFTs, methacholine test. Weakness 01/04/2024 Assessment & Plan (01/05/2024 9:36 AM EDT): Its probably multifactorial, from depression, chronic pain, ?fibromyalgia? Long covid? Bronchospasm sp Influenza + covid?ro DM, HIV? Order PFTS, labs Advised to remain hydrated, mild to md physical activity as tolerated. Radiculopathy, lumbar region 01/04/2024 Assessment & Plan (03/07/2024 4:30 PM EDT): FU by [facility] pain clinic, I advised her to call them as she hs not been able to do MRI, to look for another POC Continue flexeril for now, advised her to come for acupuncture clinic. Assessment & Plan (01/05/2024 9:31 AM EDT): Longstanding, seen at [facility] Pain clinic. Advised to get Lumbar MRI, I rx lorazepam 0.25 prn anxiety prior to procedure I told her she can come to our acupuncture clinic Anxiety associated with depression 01/04/2024 Assessment & Plan (03/07/2024 4:29 PM EDT): Doing better on buspar daily FU with counselor. She feels safe at home and is able to reach out for safety. Assessment & Plan (01/05/2024 9:37 AM EDT): Hx MDD> Had anxiety when having MRI, I will rx lorazepam low dose to take prior to procedure. Acute myeloid leukemia in remission 06/10/2023 Depression 06/10/2023 Overview (01/05/2024): Therapist is Estelle Baez. Assessment & Plan (01/05/2024 9:33 AM EDT): Moderately symptomatic, reportedly with many med tolerances, tolerating Buspar for now. Advised to take Buspar daily as opposed to prn, can increase to bid if tolerated. May need evaluation for other meds, consider mood stabilizers. Continue fu with therapist Estelle Baez. She feels safe at home and is able to reach out for safety. Endometrial hyperplasia without atypia Leukemia in remission 06/08/2016 Overview (01/04/2024): FU'd by Dr Major, [facility]. Assessment & Plan (01/05/2024 9:34 AM EDT): Obtain med records from Dr Major's office Fu with Oncology every year. Encounters Date Type Department Care Team Description 06/14/2024 Telephone [facility] [address] [place] [phone] Rik Hunter MD 06/14/2024 Orders Only [facility] [address] [place] [phone] Rik Hunter MD H. pylori infection (Primary Dx) 06/06/2024 10:00 AM EST Office Visit [facility] [address] [place] [phone] Rik Hunter MD Gastroesophageal reflux disease, unspecified whether esophagitis present (Primary Dx) 06/06/2024 Travel 05/13/2024 Outside Procedure [facility] [address] [place] [address] Divina Driver, OD Presbyopia (Primary Dx) 05/11/2024 9:45 AM EST Office Visit [facility] [address] [place] [address] Divina Driver, OD Hyperopia of both eyes (Primary Dx) 05/11/2024 Travel from Last 3 Months Family History Medical History Relation Name Comments Alzheimer's disease Father Hypothyroidism Mother htn Mother Relation Name Status Comments Father Mother Social History Tobacco Use Types Packs/Day Years Used Date Smoking Tobacco: Never Smokeless Tobacco: Never Tobacco Cessation:Counseling Given: Not Answered Alcohol Use Standard Drinks/Week Comments Never 0 [...] Orientation Straight 06/10/2023 11 :28 AM EST Last Filed Vital Signs Vital Sign Reading Time Taken Comments Blood Pressure 117/78 06/06/2024 10:10 AM EST Pulse 95 06/06/2024 10:10 AM EST Temperature 36.8 ??C (98.2 ??F) 06/06/2024 10:[address] Respiratory Rate 18 06/06/2024 10:10 AM EST Oxygen Saturation 99% 06/06/2024 10:10 AM EST Inhaled Oxygen Concentration - - Weight 64.6 kg (142 lb 6.4 oz) 03/07/2024 2:06 P M EDT Height 167.6 cm (5' 6 ) 03/07/2024 2:06 PM EDT Body Mass Index 22.98 03/07/2024 2:06 PM EDT Plan of Treatment Upcoming Encounters Date Type Department Care Team (Late st Contact Info) Description 07/21/2024 11:45 AM EST Office Visit [facility] [address] [place], [place] [phone] Sade Zhou MD [address] [place] [address] Health Maintenance Due Date Last Done Comments CT Colonography 1965 Colonoscopy 1965 FIT 1965 FOBT 1965 Sigmoidoscopy 1967 COVID-19 Vaccine (#1) 1972 Pneumococcal Vaccine: Pediatrics (0 to 5 Years) and At-Risk Patients (6 to 64 Years) (1 of 2 - PCV) 1973 Alcohol/Substance Use Screening 1979 DTaP/Tdap/Td Vaccines (1 - Tdap) 1986 Hepatitis B Vaccines (1 of 3 - 19+ 3-dose series) 1986 Zoster Vaccines (1 of 2) 1986 Mammogram 2007 Influenza Vaccine (#1) 2024 Depression Monitoring (PHQ-9) 07/06/2024, 01/04/2024 SDOH Screening 12/24/2024 12/25/2023 Depression Screening 01/03/2025 01/04/2024, 01/04/2024 Tobacco Screening 06/06/2025 06/06/2024 Pap Smear 11/19/2026 11/20/2023 Colorectal Cancer Screening 03/17/2027 FIT DNA/Cologuard 03/17/2027 03/17/2024 Cervical Cancer Screening 11/19/2028 HPV/Cotest 11/19/2028 11/20/2023, 11/20/2023 RSV Patients and Patients Aged 60 years or older (1 - 1-dose 75+ series) 2042 HIV Screening Completed 01/06/2024 Hepatitis C Screening Completed 01/06/2024 HIB Vaccines Aged Out No longer eligi ble based on patient's age to complete this topic HPV Vaccines Aged Out No longer eligi ble based on patient's age to complete this topic Hepatitis A Vaccines Aged Out No long er eligible based on patient's age to complete this topic IPV Vaccines Aged Out No longer eligi ble based on patient's age to complete this topic Meningococcal Vaccine Aged Out No leo gen eligible based on patient's age to complete this topic RSV under 20 months Aged Out No longe r eligible based on patient's age to complete this topic Rotavirus Vaccines Aged Out No longer eligible based on patient's age to complete this topic Procedures Procedure Name Priority Date/Time Associated Diagnosis Comments HELICOBACTER PYLORI AG, EIA, STOOL Routine 06/10/2024 8:55 AM EST Gastroesophageal reflux disease, unspecified whether esophagitis present LAB COLOGUARD?? COLON CANCER SCREEN Routine 03/17/2024 9:25 AM EDT Encounter for colorectal cancer screening HEPATITIS PANEL, GENERAL Routine 01/06/2024 9:06 AM EDT Weakness Leukemia in remission, unspecified leukemia type (CMS/HCC) HIV 1/2 ANTIGEN/ANTIBODY, FOURTH GENERATION W/RFL Routine 01/06/2024 9:06 AM EDT Weakness HPV MRNA E6/E7 REFLEX TO HPV 16, 18/45 Routine 11/20/2023 10:46 AM EDT PAP SMEAR Routine 11/20/2023 10:46 AM EDT from Last 3 Months or Most Recently Relevant to Health Maintenance Results * (ABNORMAL) Helicobacter pylori??Antigen, EIA, Stool (06/10/2024 8:55 AM EST) H pylori Ag Stool SEE NOTE(A) [facility] Comment:HELICOBACTER PYLORI AG, EIA, STOOL Micro Number: [id number] Test Status: Final Specimen Source: Stool Specimen Quality: Adequate H.pylori Ag: Detected Reference Range: Not DetectedTHIS TEST WAS PERFORMED AT:[facility] [place] [phone] MORALES MD Stool Rectal contents / Unknown 06/10/2024 8:55 AM EST 06/10/2024 11:49 AM EST Rik Hunter MD LAB BODY FLUIDS AND STOOLS ORDER LAZARA Final Result [facility] [address] [place] [phone] * (ABNORMAL) Cologuard?? colon cancer screening (03/17/2024 9:25 AM EDT) Cologuard Result Positive( A) Negative 03/23/2024 12:54 AM EDT [facility] [facility] (CLIA #:[id number]) Comment: POSITIVE TEST RESULT. A positive Cologuard result should be followed with a colonoscopy or visual examination of the colon. The normal value (reference range) for this assay is negative. TEST DESCRIPTION: Composite algorithmic analysis of stool DNA-biomarkers with hemoglobin immunoassay. ?? Quantitative values of individual biomarkers are not reportable and are not associated with individual biomarker result reference ranges. Cologuard is intended for colorectal cancer screening of adults of either sex, 45 years or older, who are at average-risk for colorectal cancer (CRC). Cologuard has been approved for use by the U.S. FDA. The performance of Cologuard was established in a cross sectional study of average-risk adults aged 50-84. Cologuard performance in patients ages 45 to 49 years was estimated by sub-group analysis of near-age groups. Colonoscopies performed for a positive result may find as the most clinically significant lesion: colorectal cancer [4.0%], advanced adenoma (including sessile serrated polyps greater than or equal to 1cm diameter) [20%] or non- advanced adenoma [31%]; or no colorectal neoplasia [45%]. These estimates are derived from a prospective cross-sectional screening study of 10,000 individuals at average risk for colorectal cancer who were screened with both Cologuard and colonoscopy. (Ganesh Phan. et al, N Engl J Med 2014;370(14):8196-5786.) Cologuard may produce a false negative or false positive result (no colorectal cancer or precancerous polyp present at colonoscopy follow up). A negative Cologuard test result does not guarantee the absence of CRC or advanced adenoma (pre-cancer). The current Cologuard screening interval is every 3 years. ([place] [employer] Society and U.S. Multi-Society Task Force). Cologuard performance data in a 10,000 patient pivotal study using colonoscopy as the reference method can be accessed at the following location: www.[employer]/results. Additional description of the Cologuard test process, warnings and precautions can be found at [email or web address].com. Stool specimen (specimen) 03/17/2024 9:25 AM EDT 03/18/2024 11:00 AM EDT us Sade Zhou MD LAB MOLECULAR DIAGNOSTIC S ORDERABLES Final Result [facility] (CLIA #:[id number]) [place] [address], * Hepatitis Panel, General (01/06/2024 9:06 AM EDT) Hepatitis A IgM Nonreactive Nonreactive [facility] Comment:IgM antibodies to BLANKENSHIP V not detected; does not exclude earlyacute or recovered HAV infection. ~Hepatitis B Surface Antibody NONREACTIVE Nonreactive [facility] Comment:Nonreactive: < 8.00 mIU/mL Hepatitis B Core Antibody Nonreactive Nonreactive [facility] Hepatitis C Antibody Nonreactive Nonreactive [facility] Comment:Antibodies to HCV no t detected; does not exclude early acuteHCV infection. Hepatitis B Surface Ag Negative Negative [facility] Blood 01/06/2024 9:06 AM EDT 01/06/2024 11:17 AM EDT us Sade Zhou MD LAB BLOOD ORDERABLES Fin al Result Performing Organization Address [facility] Co de Phone Number [facility] [address] [place] [phone] * HIV-1/2 Antigen and Antibodies, Fourth Generation, with Reflexes (01/06/2024 9:06 AM EDT) HIV AB/AG Nonreactive Nonreactive [facility] Comment:HIV-1 p24 Ag and/or HIV-1/HIV-2 Ab not detected.A test result that is nonreactive does not exclude thepossibility of exposure to or infection with HIV-1 and/orHIV-2. Nonreactive results in this assay for individualswith prior exposure to HIV-1 and/or HIV-2 may be due toantigen and antibody levels that are below the limit ofdetection of this assay.The Last 2 Left HIV Ag/Ab Combo assay result andsupplemental assay results should be interpreted inconjunction with the patient's clinical presentation,history and other laboratory results. If the results areinconsistent with clinical evidence, additional testing issuggested to confirm the result. Blood Venous blood specimen / Unknown 01/06/2024 9:06 AM EDT 01/06/2024 11:17 AM EDT us Sade Zhou MD LAB BLOOD ORDERABLES Fin al Result Performing Organization Address City/[facility]/ZIP Co de Phone Number [facility] [address] [place] [address] [phone] * HPV mRNA E6/E7 w/Reflex to HPV Genotypes 16, 18/45 (11/20/2023 10:46 AM EDT) HPV nRNA E6/E7 Not Detected Not Detected [facility] Comment:Methodology: Transcr iption-Mediated AmplificationThis assay detects E6/E7 viral messenger RNA (mRNA) from 14high-risk HPV types (16,18,31,33,35,39,45,51,52,56,58,59,66,68).Cervical sources are required for HPV testing.If a vaginal source from a patient who has had atotal hysterectomy with removal of cervix wassubmitted, please contact the testing laboratoryfor alternative testing options.For additional information, please refer tohttp://education.DEQ/faq/HLR978w4(This link if provided for information/educational purposes only.)THIS TEST WAS PERFORMED AT:[facility] [place] [phone] MORALES MD HPV mRNA E6/E7 TNP [facility] HPV [facility] HPV 18/45 RNA [facility] 11/20/2023 10:4 6 AM EDT 11/23/2023 10:40 AM EDT Generic External Data Provider LAB CYTOLOGY TARIK RENAE Final Result [facility] [address] [place] [address] [phone] * Pap Smear (11/20/2023 10:46 AM EDT) 11/20/2023 10:4 6 AM EDT 11/23/2023 10:40 AM EDT Narrative [facility] - 12/22/2023 8:41 AM EDT ----- ------- Name: Maki Luna I ? Age/Sex: 58/F ? : 1965 Unit#: [id number] ?? Attend Dr: Juany Hui CNM ?Re11/20/23 ?Status: DEP REF ? Location: HO.LNP ?Disch: ? ----- ------- SPEC : [id number] ?RECD: 11/23/23-1039 ? STATUS: ??SOUT ? REQ NUM: [id number] ? VON: 11/20/23-6 ? SUBM DR: Juany Hui CNM ? ENTERED: ??11/23/23-1100 ?SP TYPE: Pap Smr ?OTHR DR: Sade Zhou MD ? ORDERED: ??Pap Smear, PAP path review ? Interpretation ?? Satisfactory for evaluation. ?? Negative for intraepithelial lesion or malignancy. ?? Inflammation with associated cellular changes. ? HPV mRNA E6/E7: ?NOT DETECTED ? This assay detects E6/E7 viral messenger RNA (mRNA) from 14 high-risk HPV types (16, 18, ?? 31, 33, 35, 39, 45, 51, 52, 56, 58, 59, 66, 68) ? HPV testing performed by [employer], [place], [place]. ??See reference laboratory ?? portion of the EMR for entire report. ?Clinical Information LMP: Postmenopausal Previous PAP test: 11/17/2022, [facility] ? Material Received ?? ThinPrep-Cervical Copies To: ?? Sade Zhou MD ?? [facility] ?? [address] [facility] ?? [place] [address] ?? [phone] ?? Juany Hui CNM ?? [facility] ?? [address] [facility] [address] ?? [place] [address] ?? [phone] ----- ------- Signed (signature on file) Theo Wei MD 12/22/23 0841 ? ----- ------- ? END OF REPORT ? us Generic External Data Provider LAB CYTOLOGY ORDE OC Final Result [facility] [address] [place] [address] [phone] from Last 3 Months or Most Recently Relevant to Health Maintenance Insurance [employer] Care Teams Base Cloth Inspector Relationship Specialty Start Date End Date Sade Zhou MD [address] [place] [phone] PCP - General Internal Medicine 01/04/24
--- OUTSIDE RECORDS SUMMARY | 2024-07-05 11:01 | XMS_ITS | Encounter Summary ---
Author Organization [employer] Address [address] [place] [address] Care Team Providers Care Systems Mgr Name Role Phone Sade Zhou MD Primary Care Provider + Encounter Details Date Type Department Care Team (Latest Contact Info) Description 06/06/2024 Travel Social History Tobacco Use Types Packs/Day Years [...] Description 07/21/2024 11:45 AM EST Office Visit [facility] [address] [place] [address] Sade Zhou MD [address] [place] [address] documented as of this encounter Visit Diagnoses Not on filedocumented in this encounter Additional Health Concerns Assessment Noted Time PHQ-9 Depression Total Score: 13 024 10:36 AM EDT documented as of this encounter Care Teams Systems Mgr Relationship Specialty Start Date End Date Sade Zhou MD [address] [place] [address] PCP - General Internal Medicine 01/04/24 documented as of this encounter
== END 2024-07-05 11:23 | disposition home or self-care (01) ==
PROVIDERS: PCP Internal Medicine; Visit Provider Advanced Practice Midwife
DX: Z87.42 Personal history of other diseases of the female genital tract (principal); Z30.432 Encounter for removal of intrauterine contraceptive device
CPT/HCPCS: 58301; 99212

== ENCOUNTER → 2024-07-05 10:11 | Outpatient (BNVA) | payer MEDICAID, SELFPAY | PROVIDERS: PCP Internal Medicine; Visit Provider Advanced Practice Midwife | DX: Z30.432 Encounter for removal of intrauterine contraceptive device (principal); Z87.42 Personal history of other diseases of the female genital tract | CPT/HCPCS: 58301; 99212 ==

== ENCOUNTER 2024-08-18 07:29 | Day surgery (SDC) | payer MEDICAID, SELFPAY ==
[2024-08-16 12:42] VITALS: BMI 23.2
--- NOTE | 2024-08-17 08:28 | HO.ANESPROP2 ---
Documented by User: Eliza Soto NP 08/17/24 08:30 HPI - Anesthesia Eval Consult details Narrative: 59yo F for Upper Endoscopy and Colonoscopy [facility] Active Problems Active Problems: All Active Problems History of endometrial hyperplasia (Acute) History of Helicobacter pylori infection (Acute) Weakness of right side of body (Acute) Acute myeloid leukemia with minimal differentiation, in remission (Acute) UTI (urinary tract infection) (Acute) Urinary frequency (Acute) Endometrial hyperplasia without atypia (Acute) Well woman exam (Acute) Cervicalgia (Acute) Myofascial pain on right side (Acute) Scapular dyskinesis (Acute) Right shoulder pain (Acute) Acute myeloid leukemia (Acute) Past Medical History Medical History History of endometrial hyperplasia History of Helicobacter pylori infection Endometrial hyperplasia without atypia Leukemia Family History Family History Paternal Aunt Throat cancer Sister HX: breast cancer, Onset Age: 50 Maternal Aunt HX: breast cancer Asthma Mother Hypertension Surgical History Surgical History Hx of tubal ligation Social History Social History Household Members: None Housing: Apartment Are you a primary floor care technician to a significant other at home: No Do you presently have visiting nurse or other home services: No Alcohol intake: former Patient Tobacco Use Status: Never used Tobacco Have you been hit, kicked, punched, or otherwise hurt by someone within the past year? If so, by whom?: No Are you DNR?: No Advance Directives: No Advance Directives Information Provided: Yes service: No Current occupational status: unemployed Meds Allergies Allergy/AdvReac Type Severity Reaction Status Date / Time ondansetron Allergy Intermediate INVOLUNTARY Verified 07/29/24 14:30 [From ZOFRAN ( MOVEMENTS;MENTAL HYDROCHLORIDE)] BLOCK Seasonal Allergies Allergy Mild Sneezing Verified 07/29/24 14:30 Home Medications ?Medication ?Instructions ?Recorded ?Confirmed ?Last Taken ?Type fluticasone propionate 50 1 spray intranasal BID 08/23/20 08/18/24 Unknown History mcg/actuation nasal spray,suspension (Flonase Allergy Relief) loratadine 10 mg tablet (Claritin) 10 mg PO DAILY 08/23/20 08/18/24 Unknown History nabumetone 500 mg tablet (Relafen) 500 mg PO DAILY 08/23/20 08/18/24 Unknown History montelukast 10 mg tablet 10 mg PO DAILY 08/01/21 08/18/24 Unknown History levonorgestrel 21 mcg/24 hr (up to 21 mcg intrauterine DAILY 11/14/22 08/18/24 Unknown History 8 years) 52 mg intrauterine device (Mirena) buspirone 10 mg tablet 10 mg PO BID 08/27/23 08/18/24 Unknown History Exam Height,Weight and Vital Signs: Height 5 ft 6 in Weight 65.317 kg Pertinent Lab Results Pertinent Lab Results: Laboratory Tests 07/29/24 15:12 WBC 5.8 Hgb 12.4 Hct 37.5 Plt Count 186 Sodium 140 Potassium 3.9 Chloride 107 Carbon Dioxide 28 BUN 15 Creatinine 0.61 Assessment and Plan Assessment Anesthesia Assessment: Chart Reviewed Documented by User: Vanessa Mejia MD 08/18/24 11:54 PMFSH Past Medical History Medical History History of endometrial hyperplasia History of Helicobacter pylori infection Endometrial hyperplasia without atypia Leukemia Family History Family History Paternal Aunt Throat cancer Sister HX: breast cancer, Onset Age: 50 Maternal Aunt HX: breast cancer Asthma Mother Hypertension Family history of problems with anesthesia: No Surgical History Surgical History Hx of tubal ligation History of Problems with Anesthesia: No Social History Social History Household Members: None Housing: Apartment Are you a primary floor care technician to a significant other at home: No Do you presently have visiting nurse or other home services: No Alcohol intake: former Patient Tobacco Use Status: Never used Tobacco Have you been hit, kicked, punched, or otherwise hurt by someone within the past year? If so, by whom?: No Are you DNR?: No Advance Directives: No Advance Directives Information Provided: Yes service: No Current occupational status: unemployed Meds Allergies Allergy/AdvReac Type Severity Reaction Status Date / Time ondansetron Allergy Intermediate INVOLUNTARY Verified 07/29/24 14:30 [From ZOFRAN ( MOVEMENTS;MENTAL HYDROCHLORIDE)] BLOCK Seasonal Allergies Allergy Mild Sneezing Verified 07/29/24 14:30 Home Medications ?Medication ?Instructions ?Recorded ?Confirmed ?Last Taken ?Type fluticasone propionate 50 1 spray intranasal BID 08/23/20 08/18/24 Unknown History mcg/actuation nasal spray,suspension (Flonase Allergy Relief) loratadine 10 mg tablet (Claritin) 10 mg PO DAILY 08/23/20 08/18/24 Unknown History nabumetone 500 mg tablet (Relafen) 500 mg PO DAILY 08/23/20 08/18/24 Unknown History montelukast 10 mg tablet 10 mg PO DAILY 08/01/21 08/18/24 Unknown History levonorgestrel 21 mcg/24 hr (up to 21 mcg intrauterine DAILY 11/14/22 08/18/24 Unknown History 8 years) 52 mg intrauterine device (Mirena) buspirone 10 mg tablet 10 mg PO BID 08/27/23 08/18/24 Unknown History Exam Height,Weight and Vital Signs: Height 5 ft 6 in Weight 65.317 kg Vital Signs Temp Pulse Resp BP Pulse Ox O2 Del Method 08/18/24 09:41 98.5 F 91 20 117/79 97 Room Air Pertinent Lab Results Pertinent Lab Results: Laboratory Tests 07/29/24 15:12 WBC 5.8 Hgb 12.4 Hct 37.5 Plt Count 186 Sodium 140 Potassium 3.9 Chloride 107 Carbon Dioxide 28 BUN 15 Creatinine 0.61 Airway Mallampati Class: II TM Dist: >3cm Neck ROM: Full Partial: Upper and Lower Loose/Missing/Broken Teeth: Yes (Partials top and bottom. Denies broken or loose teeth) Heart: RRR Lungs: CTAB Assessment and Plan Assessment Anesthesia Assessment: Anesthesia Plan Discussed and Chart Reviewed Final Anesthetic Review Family History of Problems with Anesthesia: No History of Problems with Anesthesia: No NPO: Yes ASA Class: III Final Preanesthetic Review: No Changes in Pt Med Stat, Meds/Allgs Chart Reviewed, Consent Obtained/Reviewed and Anes Risks/Benef Reviewed Patient Risk: Intermediate Procedure Risk: Low Assessment/Block/Sedation in SS: Assess/Block/Sedation-SS Anesthetic Plan Anesthetic Plan: TIVA Disposition: Standard PACU
[2024-08-18 09:41] VITALS: BP 117/79; PULSE 91; RESP 20; TEMP 36.9; O2SAT 97; BMI 23.7
[2024-08-18] MEDS: Lactated Ringers 1,000 ML 100 ML IVCONT (10:04)
--- NOTE | 2024-08-18 10:23 | P.HPSUR_ITS ---
Pre-Procedural Eval Section A - 24 Hr Update-Section A only Date of Service: 08/18/24 Section B - Complete if H&P > 30 days Chief Complaint: positive cologuard, H pylori Details of Present Illness: History of endometrial hyperplasia History of Helicobacter pylori infection Endometrial hyperplasia without atypia Leukemia Surgical History (Reviewed 06/29/24 @ 13:42 by Pedro Wright [facility]) Hx of tubal ligation Present Medications: see Short Stay Collaborative assessment Allergies: Allergies Allergy/AdvReac Type Severity Reaction Status Date / Time ondansetron Allergy Intermediate INVOLUNTARY Verified 07/29/24 14:30 [From ZOFRAN ( MOVEMENTS;MENTAL HYDROCHLORIDE)] BLOCK Seasonal Allergies Allergy Mild Sneezing Verified 07/29/24 14:30 Review of Systems Review of Systems Comment: Ten point ROS negative Exam Exam Comment: Gen appear: No acute distress HEENT: no icterus Chest: No overt resp distress Abd: soft, nontender, nondistended Psych: Stable affect, answering questions appropriately Neuro: A/Ox3 noted to move all extremities spontaneously Ext: no peripheral edema Plan Diagnosis/Plan: Unchanged I have reviewed the history and physical and performed a pertinent physical examination on my patient. No changes have occurred unless specified. Time Spent With Patient Time: Total time managing care of this patient today ____ minutes.
--- NOTE | 2024-08-18 12:44 | P.OPN-COLO_ITS ---
Colonoscopy Operative Note Operative Note Date of Service: 08/18/24 Narrative: Procedure: Upper endoscopy and colonoscopy Indication: H pylori, positive cologuard Endoscopist: Shannon Diaz MD Anesthesia Provider: Divina Shaw CRNA Anesthesia type: MAC Instrument: [id number] and [id number] EGD Procedure:?? The procedure, indications, preparation and potential complications were reviewed with the patient with the help of fire investigation lieutenant, who indicated understanding and gave written informed consent to proceed. The endoscope was introduced through the mouth, and advanced to the 2nd part of the duodenum. The mucosa was carefully examined on slow withdrawal of the endoscope. The patient tolerated the procedure well. There were no immediate complications.? EGD Findings:? * Esophagus:? Normal esophageal mucosa was noted. The Z-line was at 35 cm displaced upwards by a hiatal hernia with the diaphragmatic pinch at 38 cm. * Stomach:? Normal gastric mucosa. Retroflexion was performed in the cardia that showed Hill grade III hiatal hernia. Random cold forceps biopsies were taken from the stomach for H pylori. Sample was also sent to micro for culture and senstivity. * Duodenum:? Normal duodenal mucosa. Colonoscopy Procedure:? The patient was then turned for the colonoscopy. A digital rectal exam was performed which was normal.? A distal attachment cap was affixed to the tip of the scope and the colonoscope was then inserted through the anus and advanced through the colon and advanced to the cecum at 90 cm.? Appendiceal orifice and ileocecal valve were identified. Mucosa was carefully examined under high definition white light as the instrument was slowly withdrawn in a retrograde panoramic fashion. Retroflexion was performed in rectum. The procedure was not difficult. The quality of the prep was BBPS: 3+2+3 = adequate Withdrawal time 9 minutes Limitations: No limitations Findings: Mucosa: Normal colon mucosa. Protruding lesions: * Medium internal hemorrhoids without stigmata of recent bleeding. Excavated lesions: * [id number] diverticulosis of left colon. Impression: 1. Normal esophagus 2. Normal stomach (biopsy, micro) 3. Normal duodenum 4. Normal colon mucosa 5. Internal hemorrhoids 6. Diverticulosis Recommendations:?? * Follow-up path results * Avoid NSAIDs * H Pylori tx if positive (pt recently completed triple therapy) * Repeat colonoscopy for CRC screening in 10 years.
[2024-08-18 12:55] VITALS: BP 100/64; PULSE 75; RESP 16; TEMP 36.1; O2SAT 99
[2024-08-18 13:10] VITALS: BP 106/63; PULSE 70; RESP 16; TEMP 37; O2SAT 98
== END 2024-08-18 14:08 | disposition home or self-care (01) ==
PROVIDERS: PCP Internal Medicine; Visit Provider Internal Medicine
PROC: (CPT 45378; principal; 2024-08-18 11:40)
DX: R19.5 Other fecal abnormalities (principal); K57.30 Diverticulosis of large intestine without perforation or abscess without bleeding; K64.8 Other hemorrhoids; K64.4 Residual hemorrhoidal skin tags; Z86.19 Personal history of other infectious and parasitic diseases; C92.00 Acute myeloblastic leukemia, not having achieved remission; J30.2 Other seasonal allergic rhinitis; Z87.42 Personal history of other diseases of the female genital tract; Z98.51 Tubal ligation status; Z80.3 Family history of malignant neoplasm of breast; Z79.51 Long term (current) use of inhaled steroids; Z79.899 Other long term (current) drug therapy; Z88.8 Allergy status to other drugs, medicaments and biological substances; Z56.0 Unemployment, unspecified
CPT/HCPCS: 45378; 43239; 87081; 87205; 88305; 88313; 88342; J2003; J2704

== ENCOUNTER → 2024-08-18 07:29 | Outpatient (BNV) | payer MEDICAID, SELFPAY | PROVIDERS: PCP Internal Medicine; Visit Provider Internal Medicine | DX: Z12.11 Encounter for screening for malignant neoplasm of colon (principal); R19.5 Other fecal abnormalities; K57.30 Diverticulosis of large intestine without perforation or abscess without bleeding; K64.8 Other hemorrhoids; A04.8 Other specified bacterial intestinal infections; B96.81 Helicobacter pylori [H. pylori] as the cause of diseases classified elsewhere | CPT/HCPCS: 43239; 45378 ==

== ENCOUNTER 2024-08-24 14:02 | Outpatient (AMB) | payer MEDICAID, SELFPAY ==
--- NOTE | 2024-08-24 14:11 | A.OFFVIS_ITS ---
Vital Signs 08/24/24 14:12 Height 5 ft 6 in Weight 142 lb 13.753 oz BMI 23.1 BP 108/76 Blood Pressure Location Rt brachial Position Sitting Pulse 72 Pulse Source Pulse Oximeter Pulse Oximetry (%) 96 Oxygen Delivery Method Room Air Intake Visit Reasons: S/P colo/egd Joe Intake Note: ESTABLISHED PATIENT for s/p double w/ BZ. Chief Complaint; Pt denies any GI concerns at this time. Pt does report however a spontaneous hypoglycemic episode since the procedure. Pt is not a known diabetic. Pt is going to be seeing her PCP again to get more information regarding this matter in the near future. Pt has not had any additional sx since then. Secretarial Teacher Required: Yes Secretarial Teacher Services: Secretarial Teacher Present Secretarial Teacher Name: SAPPHIRE CHAVEZ + Luan [id number] Information Interpreted: clinical only Accompanied by: Self / Same As Patient Allergies ondansetron [From ZOFRAN ( HYDROCHLORIDE)] Allergy (Intermediate, Verified 08/24/24 14:29) INVOLUNTARY MOVEMENTS;MENTAL BLOCK Seasonal Allergies Allergy (Mild, Verified 08/24/24 14:29) Sneezing HPI HPI S/P colo/egd Joe: Details: LAST VISIT History of Helicobacter pylori infection Positive colorectal cancer screening using Cologuard test Screen for colon cancer Postprandial epigastric pain Plan Patient can continue taking omeprazole daily and sucralfate at bedtime. She will go for upper endoscopy to rule out gastritis, esophagitis, Barretts, H pylori. What to expect before during and after procedure discussed with patient. Stressed the importance of good bowel prep and clear liquid diet with patient. Patient will be seen after the procedure, sooner on as needed basis. She is agreeable to this plan and verbalizes understanding of instructions. She was given the opportunity to ask questions and all questions answered. ? Thank you for allowing me to participate in her care Medications New polyethylene glycol 3350 (Miralax) As directed by gastroenterology department at [facility] 238 grams PO ONCE 238 grams 0RF Z12.11 bisacodyl (Dulcolax (bisacodyl)) take 4 tabs at noon the day before your colonoscopy 20 mg (4 x 5 mg) PO ONCE 4 tabs 0RF 1 day Z12.11 UPPER ENDOSCOPY AND COLONOSCOPY EGD Findings:? * Esophagus:? Normal esophageal mucosa was noted. The Z-line was at 35 cm displaced upwards by a hiatal hernia with the diaphragmatic pinch at 38 cm. * Stomach:? Normal gastric mucosa. Retroflexion was performed in the cardia that showed Hill grade III hiatal hernia. Random cold forceps biopsies were taken from the stomach for H pylori. Sample was also sent to micro for culture and senstivity. * Duodenum:? Normal duodenal mucosa. Colonoscopy Procedure:? The patient was then turned for the colonoscopy. A digital rectal exam was performed which was normal.? A distal attachment cap was affixed to the tip of the scope and the colonoscope was then inserted through the anus and advanced through the colon and advanced to the cecum at 90 cm.? Appendiceal orifice and ileocecal valve were identified. Mucosa was carefully examined under high definition white light as the instrument was slowly withdrawn in a retrograde panoramic fashion. Retroflexion was performed in rectum. The procedure was not difficult. The quality of the prep was BBPS: 3+2+3 = adequate Withdrawal time 9 minutes Limitations: No limitations Findings: Mucosa: Normal colon mucosa. Protruding lesions: * Medium internal hemorrhoids without stigmata of recent bleeding.Excavated lesions: * Yyli-re-bsygolvo diverticulosis of left colon. Impression: 1. Normal esophagus 2. Normal stomach (biopsy, micro) 3. Normal duodenum 4. Normal colon mucosa 5. Internal hemorrhoids 6. Diverticulosis Recommendations:?? * Follow-up path results * Avoid NSAIDs * H Pylori tx if positive (pt recently completed triple therapy) * Repeat colonoscopy for CRC screening in 10 years. PATHOLOGY RESULTS Diagnosis Stomach, biopsy: - Antral-type and oxyntic mucosa with moderate chronic, focally active, inflammation. - Positive for H pylori TODAY'S VISIT: Patient is here today for follow-up and to discuss upper endoscopy and colonoscopy results. Patient had normal colonoscopy no polyps found and recommendation was for patient to return in 10 years. Upper endoscopy showed normal esophagus and normal stomach biopsy done and was found that patient still had H pylori. Previously treated in [facility], however patient was on clarithromycin 250 mg twice a day and amoxicillin 250 mg twice a day which is not enough to eradicate the bacteria. Patient will require quadruple therapy in order to treated. Patient reports epigastric pain throughout the day worse postprandially. Although patient does admit that the pain is definitely better. Patient reports episodes of hypoglycemia after the procedure will speak to her PCP during the next appointment. Patient denies dizziness, excessive thirst, presyncope or syncope. Moves her bowels well without any issues. Denies any other GI concerning symptoms. [facility] Medical History History of endometrial hyperplasia History of Helicobacter pylori infection Endometrial hyperplasia without atypia Leukemia Surgical History Hx of tubal ligation Family History Paternal Aunt Throat cancer Sister HX: breast cancer, Onset Age: 50 Maternal Aunt HX: breast cancer Asthma Mother Hypertension Social History Household Members: None Housing: Apartment Are you a primary vision care associate to a significant other at home: No Do you presently have visiting nurse or other home services: No Alcohol intake: former Patient Tobacco Use Status: Never used Tobacco service: No Current occupational status: unemployed Review of Systems Const Denies weight gain and Denies weight loss ENT Reports no additional complaints, Denies dysphagia and Denies odynophagia Card Reports no additional complaints Resp Reports no additional complaints GI Reports abdominal pain (epigastric), Denies belching, Denies melena, Denies bloating, Denies change in bowel habits, Denies dysphagia, Denies excessive flatus, Denies dyspepsia, Reports heartburn, Denies diarrhea, Denies loose stools, Denies nausea, Denies odynophagia and Denies vomiting Reports no additional complaints Musc Reports no additional complaints Neuro Reports no additional complaints Psych Reports no additional complaints Endo Reports no additional complaints Physical Exam Vital Signs: Last Vital Signs Pulse 72 08/24/24 14:12 BP 108/76 08/24/24 14:12 Pulse Ox 96 08/24/24 14:12 Oxygen Delivery Method Room Air 08/24/24 14:12 BMI result Body Mass Index 23.1 Const General: healthy appearing, no acute distress and well developed Nutritional Appearance: well nourished Orientation/consciousness: patient oriented x3 Resp Effort & Inspection: normal respiratory effort, able to speak in complete sentences, no tracheal deviation and symmetric chest movement Auscultation: clear to auscultation bilaterally Cardio Rate: regular rate GI Inspection: Yes normal to inspection and No distended Palpation (GI): Soft to palpation, not firm, nontender and No hepatosplenomegaly present Auscultation: normal bowel sounds General: Yes no CVA tenderness Back/Spine/Pelvis Back: no CVA tenderness Skin General skin exam: elasticity normal, turgor normal and dry skin Neuro General: patient oriented x3 Psych Appearance: grossly normal Mental Status: mental status grossly normal Assessment & Plan Assessment & Plan (1) History of Helicobacter pylori infection: Code(s): Z86.19 - Personal history of other infectious and parasitic diseases Category: Medical (2) Helicobacter pylori (H. pylori): Code(s): A04.8 - Other specified bacterial intestinal infections (3) Positive colorectal cancer screening using Cologuard test: Code(s): R19.5 - Other fecal abnormalities (4) Postprandial epigastric pain: Code(s): R10.13 - Epigastric pain (5) GERD (gastroesophageal reflux disease): Code(s): K21.9 - Gastro-esophageal reflux disease without esophagitis Qualifiers: Esophagitis presence: without esophagitis Qualified Code(s): K21.9 - Gastro-esophageal reflux disease without esophagitis Plan Normal colonoscopy repeat colo in 10 years. Positive H pylori confirm on biopsy. Patient will start quadruple therapy. Encouraged patient to avoid alcohol and vinegar products while on therapy. Continue PPI twice a day. Avoid dietary triggers and late night snacking. Staying upright for minimum 3 hours after meals discussed with patient. Patient was encouraged to call our office if she will have any GI concerning symptoms. Patient has allergy to Zofran and Reglan will be sent to pharmacy to be used as needed while on this therapy. However patient was encouraged to stop if she will have any symptoms. Patient will need to be retested She will return in the office in 2 months, sooner on as needed basis. Patient is agreeable to this plan and verbalizes understanding of instructions. She was given the opportunity to ask questions and all questions answered.. Thank you for allowing me to participate in her care Medications: New metronidazole 1,000 mg (2 x 500 mg) PO BID 56 tabs 0RF A04.8 - Other specified bacterial intestinal infections metoclopramide HCl (Reglan) 5 mg PO BID 30 tabs 0RF R11.0 - Nausea bismuth subsalicylate 2 tabs PO QID 112 tabs 0RF diarrhea 14 days A04.8 - Other specified bacterial intestinal infections doxycycline hyclate 100 mg PO BID 28 caps 0RF 14 days Coding Level of Care Code Est Pt Level 4 (68364) Complex EM visit Add On G2211 Diagnoses History of Helicobacter pylori infection Z86.19 Helicobacter pylori (H. pylori) A04.8 Positive colorectal cancer screening using Cologuard test R19.5 Postprandial epigastric pain R10.13 Gastroesophageal reflux disease without esophagitis K21.9 Esophagitis presence: without esophagitis Time Spent (min) 35 Comment 25 minutes spent with patient and additional 10 minutes spent reviewing her records
[2024-08-24 14:12] VITALS: BP 108/76; PULSE 72; O2SAT 96; BMI 23.1
== END 2024-08-24 15:21 | disposition home or self-care (01) ==
LOC: HO.HGI 14:02
PROVIDERS: PCP Internal Medicine; Visit Provider Nurse Practitioner Family
DX: Z86.19 Personal history of other infectious and parasitic diseases (principal); A04.8 Other specified bacterial intestinal infections; R19.5 Other fecal abnormalities; R10.13 Epigastric pain; K21.9 Gastro-esophageal reflux disease without esophagitis
CPT/HCPCS: 99214

== ENCOUNTER → 2024-08-24 14:02 | Outpatient (BNVA) | payer MEDICAID, SELFPAY | PROVIDERS: PCP Internal Medicine; Visit Provider Nurse Practitioner Family | DX: K21.9 Gastro-esophageal reflux disease without esophagitis (principal); R10.13 Epigastric pain; R19.5 Other fecal abnormalities; A04.8 Other specified bacterial intestinal infections; Z86.19 Personal history of other infectious and parasitic diseases | CPT/HCPCS: 99212 ==

== ENCOUNTER 2024-11-24 10:46 | Outpatient (AMB) | payer MEDICAID, SELFPAY ==
--- NOTE | 2024-11-24 11:25 | MHC.OFFVIS ---
Vital Signs 11/24/24 11:35 Weight 142 lb BP 98/69 Blood Pressure Location Lt brachial Position Sitting Respiration 20 Pulse 87 Pulse Source Pulse Oximeter Pulse Oximetry (%) 100 Oxygen Delivery Method Room Air Intake Visit Reasons: Radiculopathy lumbar region Digital Media Representative Required: Yes Digital Media Representative Services: Digital Media Representative Present Digital Media Representative Name: altaf [id number] Allergies ondansetron (From ZOFRAN ( HYDROCHLORIDE)) Allergy (Intermediate, Verified 11/24/24 11:29) INVOLUNTARY MOVEMENTS;MENTAL BLOCK Seasonal Allergies Allergy (Mild, Verified 11/24/24 11:29) Sneezing HPI Comments Details: Maki is back in my office after 1 year of absence. She reported today that she had advanced severe pain in the lower lumbar spine. She never had physical therapy for the lumbar spine. I will send her for physical therapy, I will schedule her for cervical spine x-ray to address the pain she originally came to the office with. I also will start her on tizanidine 2 mg t.i.d.. After completion of the physical therapy I will try treatment with medial branch block to treat her axial back pain without radiation into bilateral lower extremities. Prior: Complains on pain in the right shoulder in the projection of the right shoulder blade as well as pain in the right knee and the right hip. She relates her pain in the knee and the hip to frequent falls she has in the past 3 years. She reports instant weakness in the right side of the body after which she falls. She was sent to neurologist for EMG on the right side which did not demonstrate any pathology. She was treated with our Oncology office for acute myeloid leukemia according to her she is currently in remission. 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 She reported that she saw her oncologist few days ago. We need to obtain the information about her condition from oncology office. She also was examined in the office of orthopedic surgery and diagnosed with scapular dyskinesia. She was recommended physical therapy. She also visited this office but it was 4 years ago her complaints were mostly cervicalgia. Now she presents in our office with different complaints. [facility] Medical History History of endometrial hyperplasia History of Helicobacter pylori infection Endometrial hyperplasia without atypia Leukemia Surgical History Hx of tubal ligation Family History Paternal Aunt Throat cancer Sister HX: breast cancer, Onset Age: 50 Maternal Aunt HX: breast cancer Asthma Mother Hypertension Social History Household Members: None Housing: Apartment Are you a primary sub acute care nurse to a significant other at home: No Do you presently have visiting nurse or other home services: No Alcohol intake: former Patient Tobacco Use Status: Never used Tobacco service: No Current occupational status: unemployed Review of Systems Const All systems reviewed & are unremarkable except as noted in HPI and below Eyes Denies photophobia ENT Reports Normal hearing present Neuro Reports Normal hearing present Physical Exam Vital Signs: Last Vital Signs Pulse 87 11/24/24 11:35 Resp 20 11/24/24 11:35 BP 98/69 11/24/24 11:35 Pulse Ox 100 11/24/24 11:35 Oxygen Delivery Method Room Air 11/24/24 11:35 Const General: cooperative, healthy appearing, no acute distress and alert Orientation/consciousness: patient oriented x3 Limitations: No ambulation with cane, No ambulation with walker and No wheelchair HEENT Head: Yes normal to inspection, Yes normocephalic and Yes atraumatic Ears: hearing grossly normal bilaterally Eyes General: appearance normal, both eyes and all related structures Eyelids: Yes eyelids normal Sclerae: sclerae normal Pupils: Equal, round and reactive pupils present EOM: EOMs intact bilaterally Direct Ophthalmoscopy: No photophobia Neck Neck: Yes normal visual inspection, Yes full ROM, Yes trachea midline and Yes no JVD Chest Chest palpation & inspection: normal inspection of the chest Resp Effort & Inspection: normal respiratory effort, able to speak in complete sentences and no audible wheezes Cardio Jugular venous distension: no JVD Palpation: other (no appreciable rhythmic abnormalities) Peripheral pulses: radial pulses present (no palpable rhythmic abnormalities detected) bilateral and other Back/Spine/Pelvis Other: Tenderness on palpation in paraspinal spinal region lumbar spine. Loading test is positive bilaterally. Cervical Spine: cervical ROM normal Neuro General: patient oriented x3, gait normal, moves all extremities and Normal light touch and pain sensation Cranial nerves: Yes CN's II-XII intact bilaterally (Tenderness on palpation right branch of trigeminal), Yes Equal, round and reactive pupils present and Yes Normal hearing present Cognition (Neuro): normal cognition Gait exam (Neuro): Normal gait present Motor exam (neuro): 5/5 motor strength present throughout, Pronator motor function not present, no tremor noted, Motor fasciculations not present and Abnormal motor strength present Extrem General: Yes normal to inspection, Yes full ROM and Yes no pedal edema Psych Appearance: grossly normal Speech and movement: Normal speech and movement present and Clear speech present Affect: normal affect Attitude: cooperative Thought process: Normal thought process present Thought content: Normal thought content present Insight: Good insight present (Psych) Judgement: Good judgement present (Psych) Assessment & Plan Assessment & Plan (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: Code(s): M47.816 - Spondylosis without myelopathy or radiculopathy, lumbar region Category: Medical (2) Spondylosis of cervical joint without myelopathy: Code(s): M47.812 - Spondylosis without myelopathy or radiculopathy, cervical region Category: Medical (3) Chronic pain syndrome: Code(s): G89.4 - Chronic pain syndrome Category: Medical (4) Acute myeloid leukemia: Code(s): C92.00 - Acute myeloblastic leukemia, not having achieved remission Category: Medical Plan Because of her lower back pain being more severe than the cervical pain we decided to address this issue with lower back pain at this time. To evaluate her cervical spine I will send her for cervical spine x-ray. I will send her for physical therapy of the lumbar spine. When she will complete physical therapy she will visit me in the office. To help the pain of this patient and ability to sleep at night I will start her on tizanidine 2 mg t.i.d.. I also will send her for CBC PT and INR to make sure that in the future we will have no problems with inserting needles paraspinal a or into spinal canal. Orders: Orders Complete Blood Count Auto Diff Today C92.00 - Acute myeloblastic leukemia, not having achieved remission PT, INR - Anti Coag Clinic Today C92.00 - Acute myeloblastic leukemia, not having achieved remission PT Evaluation and Treatment Today M47.816 - Spondylosis without myelopathy or radiculopathy, lumbar region Medications: New tizanidine 2 mg PO TID PRN 90 caps 8RF muscle spasticity 30 days Coding Level of Care Code Est Pt Level 3 (16108) Diagnoses Spondylosis of lumbar region without myelopathy or radiculopathy M47.816 Spondylosis of cervical joint without myelopathy M47.812 Chronic pain syndrome G89.4 Acute myeloid leukemia C92.00
[2024-11-24 11:35] VITALS: BP 98/69; PULSE 87; RESP 20; O2SAT 100
--- OUTSIDE RECORDS SUMMARY | 2024-11-24 12:17 | XMS_ITS | Encounter Summary ---
Author Organization [employer] Address [address] [place] [address] Care Team Providers Care Lunch Cook Name Role Phone Sade Zhou MD Primary Care Provider + Reason for Visit * Reason Comments Med Refill Encounter Details Date Type Department Care Team ([facility] st Contact Info) Description 11/22/2024 Refill [facility] [address] [place] [address] Sade Zhou MD [address] [place] [address] Strain of cervical portion of right trapezius muscle Social History Tobacco Use Types Packs/Day Years Used Date Smoking Tobacco: Never Smokeless Tobacco: Never Alcohol Use Standard Drinks/Week Comments Never 0 (1 standard drink = 0.6 oz pur e alcohol) Depression Answer Date Recorded Patient Health Questionnaire-9 Score 5 07/21/2024 Patient Health Questionnaire-9 Score 5 07/21/2024 Last PHQ-9: Questionnaire Data Not on file 0 07/21/2024 Housing Stability Answer Date Recorded What is [...] Answer Date Recorded Patient Health Questionnaire-2 Score 2 07/21/2024 Internet Access Answer Date Recorded Internet Access [...] Care Team (Late st Contact Info) Description 12/02/2024 1:30 PM EDT Nutrition [facility] [address] [place] [address] [place] [address] documented as of this encounter Visit Diagnoses Diagnosis Strain of cervical portion of right trapezius muscle documented in this encounter Additional Health Concerns Assessment Noted Time PHQ-9 Depression Total Score: 5 07/21/19 25 12:14 PM EST documented as of this encounter Care Teams Lunch Cook Relationship Specialty Start Date End Date Sade Zhou MD [address] [place] [address] PCP - General Internal Medicine 01/04/24 documented as of this encounter
== END 2024-11-24 11:47 | disposition home or self-care (01) ==
LOC: HO.PMC 10:46
PROVIDERS: PCP Internal Medicine; Referring Provider Internal Medicine; Visit Provider Anesthesiology
DX: M47.816 Spondylosis without myelopathy or radiculopathy, lumbar region (principal); M47.812 Spondylosis without myelopathy or radiculopathy, cervical region; G89.4 Chronic pain syndrome; C92.00 Acute myeloblastic leukemia, not having achieved remission
CPT/HCPCS: 99213

== ENCOUNTER → 2024-11-24 10:46 | Outpatient (BNVA) | payer MEDICAID, SELFPAY | PROVIDERS: PCP Internal Medicine; Referring Provider Internal Medicine; Visit Provider Anesthesiology | DX: M47.816 Spondylosis without myelopathy or radiculopathy, lumbar region (principal); M47.812 Spondylosis without myelopathy or radiculopathy, cervical region; G89.4 Chronic pain syndrome; C92.00 Acute myeloblastic leukemia, not having achieved remission | CPT/HCPCS: 99212 ==

== ENCOUNTER 2024-11-28 07:41 | Outpatient (REF) | payer MEDICAID, SELFPAY ==
--- NOTE | ~2024-11-28 | XR_ITS ---
CLINICAL HISTORY: M47.812 - Spondylosis without myelopathy or radiculopathy, cervical region 6 views cervical spine Comparison: None provided Findings: Normal vertebral body alignment. No acute fractures or dislocation. Multilevel disc space narrowing and endplate osteophyte formation, as well as facet hypertrophy. No prevertebral soft tissue swelling. IMPRESSION: No acute findings. This document has been electronically signed by: Leslie Li MD on 11/28/2024 15:34:35
[2024-11-28 08:11] LABS: MANUAL DIFF FLAG NO
[2024-11-28 09:04] LABS: Basophils Percent Auto 0.8 % (0-2); Eosinophils Absolute Auto 0.1 X10*3/uL (0.0-0.4); Eosinophils Percent Auto 2.8 % (0-4); Hematocrit 39.3 % (37.0-47.0); Hemoglobin 13.3 g/dl (12.0-16.0); Imm Gran Abs Auto 0.01 X10*3/uL (0.00-0.03); Imm Gran Pct Auto 0.3 % (0.0-0.4); Lymphocytes Absolute Auto 1.4 X10*3/uL (1.2-4.9); Mean Corpuscular HGB Conc 33.8 g/dl (31.0-35.0); Mean Corpuscular Hemoglobin 31.3 pg (27.0-33.0); Mean Corpuscular Volume 92.5 fL (80.0-98.0); Mean Platelet Volume 9.6 fL (9.4-12.3); Monocytes Absolute Auto 0.3 X10*3/uL (0.1-1.2); Monocytes Percent Auto 8.6 % (2-11); Neutrophils Percent Auto 51.5 % (45-73); Platelet Count 174 X10*3/uL (160-400); Red Blood Count 4.25 X10*6/uL (4.20-5.50); Red Cell Distribution Width 11.9 % (11.0-16.0); White Blood Count 3.9 X10*3/uL (4.8-10.8)
== END 2024-11-28 07:42 | disposition home or self-care (01) ==
LOC: HO.XRAY 07:41
PROVIDERS: PCP Internal Medicine; Visit Provider Anesthesiology
DX: C92.00 Acute myeloblastic leukemia, not having achieved remission (principal); M47.812 Spondylosis without myelopathy or radiculopathy, cervical region
CPT/HCPCS: 36415; 72050; 85025

== ENCOUNTER → 2024-11-28 08:17 | Outpatient (BNV) | payer MEDICAID, SELFPAY | PROVIDERS: PCP Internal Medicine; Visit Provider Radiology Diagnostic Radiology | DX: M47.812 Spondylosis without myelopathy or radiculopathy, cervical region (principal) | CPT/HCPCS: 72050 ==

== ENCOUNTER 2024-12-23 10:21 | Outpatient (REF) | payer MEDICAID, SELFPAY ==
[2024-12-23 11:31] LABS: MANUAL DIFF FLAG NO
[2024-12-23 11:42] LABS: Hematocrit 40.4 % (37.0-47.0); Hemoglobin 13.5 g/dl (12.0-16.0); Imm Gran Abs Auto 0.01 X10*3/uL (0.00-0.03); Imm Gran Pct Auto 0.2 % (0.0-0.4); Lymphocytes Absolute Auto 1.3 X10*3/uL (1.2-4.9); Mean Corpuscular HGB Conc 33.4 g/dl (31.0-35.0); Mean Corpuscular Hemoglobin 31.2 pg (27.0-33.0); Mean Corpuscular Volume 93.3 fL (80.0-98.0); NRBC Abs Auto 0.000 X10*3/uL (0.0-0.012); NRBC Pct Auto 0.0 /100WBC (0.0-0.2); Platelet Count 210 X10*3/uL (160-400); Red Blood Count 4.33 X10*6/uL (4.20-5.50); White Blood Count 4.9 X10*3/uL (4.8-10.8)
[2024-12-23 12:10] LABS: Alanine Aminotransferase 20 U/L (0-31); Albumin Level 4.3 g/dL (3.5-5.0); Alkaline Phosphatase 81 U/L (39-117); Anion Gap 10 (12-20); Aspartate Amino Transferase 24 U/L (5-31); Blood Urea Nitrogen 13 mg/dL (9-16); Calcium 8.7 mg/dL (8.4-10.2); Carbon Dioxide 28 mmol/L (22-29); Chloride 106 mmol/L (96-108); Estimated Glomerular Filt Rate > 60; Potassium 4.5 mmol/L (3.3-5.1); Sodium 139 mmol/L (135-145); Total Protein 7.6 g/dL (6.5-8.0)
[2024-12-26 16:49] LABS: TS Negative Control Passed; TS Panel A 0; TS Panel B 0; TS Positive Control Passed; TSpotTB Negative (Negative)
== END 2024-12-23 10:22 | disposition home or self-care (01) ==
LOC: HO.HHCL 10:21
PROVIDERS: Internal Medicine Medical Oncology; PCP Internal Medicine; Visit Provider Internal Medicine
DX: C92.00 Acute myeloblastic leukemia, not having achieved remission (principal); Z11.1 Encounter for screening for respiratory tuberculosis
CPT/HCPCS: 36415; 80053; 85025; 86481

== ENCOUNTER 2025-02-07 10:33 | Outpatient (REF) | payer MEDICAID, SELFPAY ==
--- OUTSIDE RECORDS SUMMARY | 2025-02-04 10:20 | XMS_ITS | Encounter Summary ---
Author Organization [employer] Address [address] [place] [address] Care Team Providers Care Probe Operator Name Role Phone Sade Zhou MD Primary Care Provider + Reason for Visit * Reason Comments Walk-In Left hand injury 01/07 10/30 Encounter Details Date Type Department Care Team ([facility] st Contact Info) Description 02/04/2025 10:20 AM EDT Office Visit [facility] [address] [place] [address] Sendy Damico MD [address] [place] [address] Left wrist pain (Primary Dx) Social History [...] splint used - Symptoms began while in [place] Patient Active Problem List Diagnosis Date Noted Acute myeloid leukemia with minimal differentiation, in remission ([facility]) 02/04/2025 Cervicalgia 02/04/2025 History of endometrial hyperplasia [...] region 01/04/2024 Acute myeloid leukemia in remission ([facility]) 06/10/2023 Endometrial hyperplasia without atypia 06/10/2023 Anxiety associated with depression 06/10/2023 Leukemia in remission ([facility]) 2017 Surgical History[1] Social History Social History [...] months or sooner prn Allergies[2] Current Medications[3] Tajik Translation: Provided by [facility] staff member WELLINGTON Gambino [1] History reviewed. [...] DISSOLVED IN LIQUID DIRECTED BY GASTROENTEROLOGY DEPTAT [facility] DEPT, Disp: , Rfl: loratadine (Claritin) [...] Info) Description 02/13/2025 10:30 AM EDT Nutrition [facility] DIABETES/NUTRITION [address] [place] [address] Amada Farmer, RD [address] [place] [address] Scheduled Orders Name Type Priority Associated Diagnoses Orde r Schedule XR Wrist 3+ Views Left Imaging Routine Left wrist pain Expected: 02/04/2025, Expires: 02/04/2026 XR Hand 3+ Views Left Imaging Routine Left wrist pain Expected: 02/04/2025, Expires: 02/04/2026 documented as of this encounter Visit Diagnoses Diagnosis Left wrist pain- Primary Pain in joint, forearm documented in this encounter Additional Health Concerns Assessment Noted Time PHQ-9 Depression Total Score: 5 07/21/19 25 12:14 PM EST documented as of this encounter Care Teams Probe Operator Relationship Specialty Start Date End Date Sade Zhou MD [address] [place] [address] PCP - General Internal Medicine 01/04/24 documented as of this encounter
--- NOTE | ~2025-02-07 | XR_ITS ---
CLINICAL HISTORY: pain at 3,4, 5th fingers 3 view left hand Comparison: None provided Findings: Wrist and hand radiographs would be reported concurrently. Normal alignment. Age-indeterminate mildly impacted and up to 2 mm displaced fracture of the 5th metacarpal neck. Correlate clinically for presence or absence of focal tenderness. Otherwise no evidence of acute fracture. No radiopaque foreign body. IMPRESSION: Age-indeterminate mildly impacted and up to 2 mm displaced fracture of the 5th metacarpal neck. Correlate clinically for presence or absence of focal tenderness. Otherwise no evidence of acute fracture. This document has been electronically signed by: Mildred Moody MD on 02/08/2025 13:11:50
--- NOTE | ~2025-02-07 | XR_ITS ---
CLINICAL HISTORY: pain at 3,4,5th fingers and lack of mobilityat finger 4 view left wrist Comparison: None provided Findings: Wrist and hand radiographs would be reported concurrently. Normal alignment. Age-indeterminate mildly impacted and up to 2 mm displaced fracture of the 5th metacarpal neck. Correlate clinically for presence or absence of focal tenderness. Otherwise no evidence of acute fracture. No radiopaque foreign body. IMPRESSION: Age-indeterminate mildly impacted and up to 2 mm displaced fracture of the 5th metacarpal neck. Correlate clinically for presence or absence of focal tenderness. Otherwise no evidence of acute fracture. This document has been electronically signed by: Mildred Moody MD on 02/08/2025 13:12:03
--- OUTSIDE RECORDS SUMMARY | 2025-02-07 12:05 | XMS_ITS | Encounter Summary ---
Author Organization [employer] Address [address] [place] [address] Care Team Providers Care Grievance And Appeals Coordinator Name Role Phone Sade Zhou MD Primary Care Provider + Encounter Details Date Type Department Care Team ([facility] st Contact Info) Description 06/14/2024 Orders Only [facility] [address] [place] [address] Rik Hunter MD [address] [place] [address] H. pylori infection (Primary Dx) Social History [...] Info) Description 02/13/2025 10:30 AM EDT Nutrition [facility] DIABETES/NUTRITION [address] [place] [address] [place] [address] Scheduled Orders Name Type Priority Associated Diagnoses Orde r Schedule Helicobacter pylori Antigen, EIA, Stool Lab Routine H. pylori infection Expected: 06/14/2024 (Approximate), Expires: 06/14/2025 documented as of this encounter Visit Diagnoses Diagnosis H. pylori infection- Primary Helicobacter pylori (H. pylori) documented in this encounter Additional Health Concerns Assessment Noted Time PHQ-9 Depression Total Score: 13 024 10:36 AM EDT documented as of this encounter Care Teams Grievance And Appeals Coordinator Relationship Specialty Start Date End Date Sade Zhou MD [address] [place] [address] PCP - General Internal Medicine 01/04/24 documented as of this encounter
--- OUTSIDE RECORDS SUMMARY | 2025-02-07 12:05 | XMS_ITS | Clinical Summary ---
Author Organization [employer] Address [address] [facility] [address] [place] [address] Care Team Providers Care Roll On Worker Name Role Phone Madelyn Rinaldi MD Primary Care Provider + Allergies Active Allergy Reactions Criticality Noted Date Comments Hydroxyzine 01/04/2024 Intolerance: Dry mouth, nausea. Mirtazapine 01/04/2024 GI intolerance Shellfish Allergy 07/21/2024 Ondansetron 06/10/2023 Zolpidem 01/04/2024 Had EP symptoms Medications Spacer/Aero-Hold ing Chambers (OptiChamber Dora) misc 1 each every 4 (four) hours if needed (asthma). 1 each 06/10/19 24 Active montelukast (Singulair) 10 MG tablet Take 10 mg by mouth 1 (one) time each day. Active albuterol 108 (90 Base) MCG/ACT inhalerIndicatio ns:Acute cough Inhale 2 puffs every 4 (four) hours if needed for wheezing or shortness of breath. 18 g 1 11/23/19 24 Active nabumetone (Relafen) 500 MG tabletIndication s:Radiculopathy, lumbar region Take 1 tablet (500 mg) by mouth 2 times daily. 180 tablet 3 03/25/20 24 Active fluticasone (Flonase) 50 MCG/ACT nasal sprayIndications :Post-nasal drip Administer 1 spray into each nostril 2 times daily. 48 g 3 07/21/19 25 Active omeprazole (PriLOSEC) [address] capsule Take 1 capsule (20 mg) by mouth before breakfast. Do not crush or chew. 90 capsule 07/21/19 25 Active busPIRone (Buspar) 10 MG tablet TAKE 1 TABLET BY MOUTH AT BEDTIME 30 tablet 3 09/06/19 25 Active traZODone (Desyrel) 50 MG tablet TAKE 1 TABLET BY MOUTH AT BEDTIME 30 tablet 1 10/21/19 25 Active cetirizine (ZyrTEC) 10 MG tabletIndication s:Post-nasal drip 1 tab daily by mouth as needed for allergies 90 tablet 12/01/19 25 Active acetaminophen (Tylenol) 500 MG tablet Take 2 tablets (1,000 mg) by mouth every 6 (six) hours if needed for moderate pain or fever for up to 25 doses. 50 tablet 12/01/19 25 Active sucralfate (Carafate) 1 GM/10ML suspension TAKE 10 ML (1 G) BY MOUTH IF NEEDED IN THE MORNING, AT NOON, AND AT BEDTIME (AB PAIN/BLOATING). 900 mL 1 12/21/19 25 Active cyclobenzaprine (Flexeril) 10 MG tabletIndication s:Strain of cervical portion of right trapezius muscle TAKE 1 TABLET BY MOUTH AT BEDTIME NEEDED FOR PAIN OF MUSCLES, DO NOT DRIVE WITH MEDICATION 30 tablet 12/28/19 25 Active lidocaine (Lidoderm) 5 % patch APPLY 1 PATCH TOPICALLY ONCE PER DAY. REMOVE & DISCARD PATCH WITHIN 12 HOURS OR DIRECTED BY MD. 30 patch 12/28/19 25 Active Bisacodyl EC 5 MG EC tablet TOME CUATRO TABLETAS POR V A ORAL AT NOON THE DAY BEFORE YOUR COLONOSCOPY 06/29/19 25 Active bismuth subsalicylate (Pepto Bismol) 262 MG chewable tablet TOME DOS TABLETAS POR V A ORAL CUATRO VECES AL D A FOR DIARRHEA FOR 14 DAYS 08/25/19 25 Active doxycycline (Vibramycin) 100 MG capsule Take 1 capsule by mouth 2 times daily. 08/25/19 25 Active loratadine (Claritin) 10 MG tablet TOME PAPO TABLETA TODOS LOS D 03/17/20 24 Active metoclopramide (Reglan) 5 MG tablet TOME PAPO TABLETA POR V A ORAL DOS VECES AL D A 09/14/19 25 Active metroNIDAZOLE (Flagyl) 500 MG tablet TOME DOS TABLETAS POR V A ORAL DOS VECES AL D A 08/25/19 25 Active GaviLAX 17 GM/SCOOP powder TAKE 238 GRAMS DISSOLVED IN LIQUID DIRECTED BY GASTROENTEROLOGY DEPT AT [facility] DEPT 06/29/19 Active QUEtiapine (SEROquel) 25 MG tablet TOME 1 TABLETA POR V A ORAL TODOS LOS D AL ACOSTARSE CUANDO SEA NECESARIO 12/19/19 Active Active Problems Problem Noted Date Diagnosed Date Acute myeloid leukemia with minimal differentiation, in remission 02/04/2025 Cervicalgia 02/04/2025 History of endometrial hyperplasia 02/04/2025 History of Helicobacter pylori infection 025 IUD check up 02/04/2025 Myofascial pain on right side 02/04/2025 Right shoulder pain 02/04/2025 Scapular dyskinesis 02/04/2025 Left wrist pain 02/04/2025 Assessment & Plan (02/04/2025 10:25 AM EDT): Swelling and pain in the L wrist and fingers: - Ordered X-ray of the affected area. Advised to go to the hospital for imaging. Will call with results once available. Limited movement and numbness in two fingers: - Ordered X-ray to evaluate underlying cause. Advised to proceed to hospital for imaging. Splint ordered and applied to provide immobilization Dyspepsia 08/09/2024 Assessment & Plan (08/09/2024 1:54 PM EST): Unclear if related to recent H. pylori treatment versus hypoglycemia as blood sugar was slightly on the low side, update on the setting of poor p.o. intake today. Follow-up with GI for H. pylori test of cure. Follow-up with me in 6 to 8 weeks, will do A1c Discussed importance of low-carb diet with accompanied by protein, to have small infection meals and increase water intake. Take Pepto-Bismol or sucralfate as needed AC meals. Will refer to dietitian. Post-nasal drip 07/21/2024 Assessment & Plan (07/21/2024 12:30 PM EST): Continue Flonase prn. H. pylori infection 06/14/2024 Assessment & Plan (10/20/2024 2:05 PM EDT): Significantly improved status post antibiotics and omeprazole. Assessment & Plan (07/21/2024 12:30 PM EST): S/P antibiotics, FU with GI next month. Continue Omeprazole x 1 daily to complete 1 month. Positive colorectal cancer screening using Colog uard test 03/24/2024 Overview (03/24/2024): Will refer to GI. Assessment & Plan (07/21/2024 12:29 PM EST): Scheduled colonoscopy for 08/18/24. Hyperlipidemia LDL goal <130 03/07/2024 Assessment & [...] asthma, reactive bronchospasm Order PFTs, methacholine test. Radiculopathy, lumbar region 01/04/2024 Assessment & Plan (10/20/2024 2:07 PM EDT): Recurrent symptoms, needs to continue follow-up with pain clinic at [facility], new referral sent Advised to hold Relafen due to GERD, take Tylenol and lidocaine patch Advised regarding physical activity for at least 15 minutes daily Gave her information regarding acupuncture clinic Assessment & Plan (03/07/2024 4:30 PM EDT): FU by [facility] pain clinic, I advised her to call them as she hs not been able to do MRI, to look for another POC Continue flexeril for now, advised her to come for acupuncture clinic. Assessment & Plan (01/05/2024 9:31 AM EDT): Longstanding, seen at [facility] Pain clinic. Advised to get Lumbar MRI, I rx lorazepam 0.25 prn anxiety prior to procedure I told her she can come to our acupuncture clinic Acute myeloid leukemia in remission 06/10/2023 Assessment & Plan (07/21/2024 12:30 PM EST): Has yearly FU with Oncology (Dr. Hill), FU on 08/01/24. Endometrial hyperplasia without atypia Anxiety associated with depression 06/10/2023 Overview (10/20/2024 10:26 AM EDT): >>OVERVIEW FOR DEPRESSION WRITTEN ON 01/05/2024 9:33 AM BY MADELYN RINALDI MD Therapist is Estelle Baez. Assessment & Plan (10/20/2024 2:06 PM EDT): Continue follow-up closely with therapist Continue trazodone nightly She feels safe at home and is able to return for safety, follow-up with me in 4 to 6 months Assessment & Plan (07/21/2024 12:29 PM EST): I will prescribe Trazodone QHS prn insomnia. Advised to start first with OTC Magnesium supplement, hold prn GI side effects. Assessment & Plan (03/07/2024 4:29 PM EDT): Doing better on buspar daily FU with counselor. She feels safe at home and is able to reach out for safety. Assessment & Plan (10/20/2024 10:26 AM EDT): >>ASSESSMENT AND PLAN FOR ANXIETY ASSOCIATED WITH DEPRESSION WRITTEN ON 01/05/2024 9:37 AM BY MADELYN RINALDI MD Hx MDD> Had anxiety when having MRI, I will rx lorazepam low dose to take prior to procedure. >>ASSESSMENT AND PLAN FOR DEPRESSION WRITTEN ON 01/05/2024 9:33 AM BY MADELYN RINALDI MD Moderately symptomatic, reportedly with many med tolerances, tolerating Buspar for now. Advised to take Buspar daily as opposed to prn, can increase to bid if tolerated. May need evaluation for other meds, consider mood stabilizers. Continue fu with therapist Estelle Baez. She feels safe at home and is able to reach out for safety. Leukemia in remission 06/08/2016 Overview (01/04/2024): FU'd by Dr Major, [facility]. Assessment & Plan (01/05/2024 9:34 AM EDT): Obtain med records from Dr Major's office Fu with Oncology every year. Resolved Problems Problem Noted Date Diagnosed Date Resolved Date Weakness 01/04/2024 10/20/2024 Assessment & Plan (01/05/2024 9:36 AM EDT): Its probably multifactorial, from depression, chronic pain, ?fibromyalgia? Long covid? Bronchospasm sp Influenza + covid?ro DM, HIV? Order PFTS, labs Advised to remain hydrated, mild to md physical activity as tolerated. Encounters Date Type Department Care Team Description 02/04/2025 10:20 AM EDT Office Visit [facility] [address] [place] [phone] Sendy Damico MD Left wrist pain (Primary Dx) 12/27/2024 1:40 PM EDT Office Visit [facility] [address] [place] [phone] Angel Quiñonez MD Abdominal bloating (Primary Dx) 12/27/2024 Travel 12/25/2024 Refill [facility] [address] [place] [phone] Madelyn Rinaldi MD Strain of cervical portion of right trapezius muscle 12/23/2024 Orders Only GENERIC EXTERNAL DATA DEPARTMENT Provider, Generic External Data 12/21/2024 Telephone [facility] [address] [place] [phone] Madelyn Rinaldi MD Labs (I informed the patient that Tspot labs were ordered, because the results are being requested by [facility]. She stated that she will come to the [facility] lab on 12/22/24, to have them done.) 12/21/2024 Orders Only [address] [phone] Madelyn Rinaldi MD Screening-pulmonary TB (Primary Dx) 12/19/[address] [address] Madelyn Rinaldi MD February12/18/2024 Refill [facility] [address] [place] [phone] Madelyn Rinaldi MD 11/29/[address] [address] Madelyn Rinaldi MD telephone call; Durable Medical Equipment (DME Order: Cane) 11/29/2024 Refill [facility] [address] [place] [phone] Madelyn Rinaldi MD Post-nasal drip 11/28/2024 Orders Only GENERIC EXTERNAL DATA DEPARTMENT Provider, Generic External Data 11/22/2024 Refill [facility] [address] [place] [phone] Madelyn Rinaldi MD Strain of cervical portion of right trapezius muscle from Last 3 Months Family History Medical [...] Mass Index 23.4 02/04/2025 10:02 AM EDT Plan of Treatment Upcoming Encounters Date Type Department Care Team (Late st Contact Info) Description 02/13/2025 10:30 AM EDT Nutrition [facility] [address] [place], [place] [phone] Amada Farmer, RD [address] [place] [address] Health Maintenance Due Date Last Done Comments CT Colonography 1967 FIT 1967 FOBT 1965 Sigmoidoscopy 1967 COVID-19 Vaccine (#1) 1972 DTaP/Tdap/Td Vaccines (1 - Tdap) 1986 Hepatitis B Vaccines (1 of 3 - 19+ 3-dose series) 1986 Pneumococcal Vaccine: 50+ Years (1 of 2 - PCV) 1986 Zoster Vaccines (1 of 2) 1986 Mammogram 2007 SDOH Screening 12/24/2024 12/25/2023 Influenza Vaccine (#1) 2025 Depression Screening 07/21/2025 07/21/2024, 07/21/2024 Alcohol/Substance Use Screening 10/20/2025 10/20/2024 Disability Screening 10/20/2025 10/20/2024 Tobacco Screening 02/04/2026 02/04/2025 Pap Smear 11/19/2026 11/20/2023 FIT DNA/Cologuard 03/17/2027 03/17/2024 Cervical Cancer Screening 11/19/2028 HPV/Cotest 11/19/2028 11/20/2023, 11/20/2023 Colonoscopy 08/18/2034 08/18/2024 Colorectal Cancer Screening 08/18/2034 RSV Patients and Patients Aged 60 years [...] patient's age to complete this topic Meningococcal B Vaccine Aged Out No l onger eligible based on patient's age to complete [...] Procedure Name Priority Date/Time Associated Diagnosis Comments COMPREHENSIVE METABOLIC PANEL Routine 12/23/2024 10:28 AM EDT CBC WITH AUTO DIFFERENTIAL Routine 12/23/2024 10:28 AM EDT T-SPOT(R).TB Routine 12/23/2024 10:28 AM EDT Screening-pulmonary TB XR CERVICAL SPINE 4V Routine 11/28/2024 3:34 PM EDT CBC WITH AUTO DIFFERENTIAL Routine 11/28/2024 8:10 AM EDT HM COLONOSCOPY Routine 08/18/2024 LAB COLOGUARD COLON CANCER SCREEN Routine 03/17/2024 9:25 AM [...] Recently Relevant to Health Maintenance Results * T-SPOT??.TB (12/23/2024 10:28 AM EDT) T Spot TB Negative Negative [facility] Comment:A negative test resu lt does not exclude the possibilityof exposure to or infection with Mycobacteriumtuberculosis (M. tuberculosis). Patients with recentexposure to TB infected individuals exhibiting anegative T-SPOT.TB result should be considered forretesting within 6 weeks or if other relevant clinicalsymptoms indicate. Results from T-SPOT.TB testing mustbe used in conjunction with each individual'sepidemiological history, current medical status,and results of other diagnostic evaluations.The T-SPOT.TB test is qualitative and results arereported as positive, borderline, or negative, giventhat the test controls perform as expected. In linewith the Centers for Disease Control and Prevention's2010 recommendation to report quantitative measurementsalongside the qualitative result, the laboratoryprovides spot counts for informational purposes only.The T-SPOT.TB test should not be interpreted as aquantitative test. TS PANEL A 0 [facility] TS PANEL B 0 [facility] Negative Control Passed [facility] Positive Control Passed [facility] Comment:For additional infor nirali, please refer [email or web address](This link is being provided for informational/educational purposes only.)REPORT COMMENT:REC'D IN CHYTHIS TEST WAS PERFORMED AT:[employer] [id number] [place] [id number] FREDERICK MD,PHD 12/23/2024 10:2 8 AM EDT 12/23/2024 11:26 AM EDT us Madelyn Rinaldi MD LAB BLOOD ORDERABLES Fin al Result [facility] [address] [place] [phone] * CBC auto differential (12/23/2024 10:28 AM EDT) Only the most recent of2 resultswithin the time period is included. White Blood Count 4.9 4.8 - 10.8 X10*3/uL [facility] Red Blood Count 4.33 4.20 - 5.50 X10*6/uL [facility] Hemoglobin 13.5 12.0 - 16.0 g/dl [facility] Hematocrit 40.4 37.0 - 47.0 % [facility] Mean Corpuscular Volume 93.3 80.0 - 98.0 fL [facility] Mean Corpuscular Hemoglobin 31.2 27.0 - 33.0 pg [facility] Mean Corpuscular HGB Conc 33.4 31.0 - 35.0 g/dl [facility] Red Cell Distribution Width 12.1 11.0 - 16.0 % [facility] Platelet Count 210 160 - 400 X10*3/uL [facility] Mean Platelet Volume 9.7 9.4 - 12.3 fL [facility] Neutrophils Percent Auto 64.5 45 - 73 % [facility] Imm Gran Pct Auto 0.2 0.0 - 0.4 % [facility] Lymphocytes Percent Auto 26.7 20 - 40 % [facility] Monocytes Percent Auto 6.8 2 - 11 % [facility] Eosinophils Percent Auto 1.2 0 - 4 % [facility] Basophils Percent Auto 0.6 0 - 2 % [facility] NRBC Pct Auto 0.0 0.0 - 0.2 /100WBC [facility] Neutrophils Absolute Auto 3.1 2.0 - 8.3 x10*3/uL [facility] Imm Gran Abs Auto 0.01 0.00 - 0.03 X10*3/uL [facility] Lymphocytes Absolute Auto 1.3 1.2 - 4.9 X10*3/uL [facility] Monocytes Absolute Auto 0.3 0.1 - 1.2 X10*3/uL [facility] Eosinophils Absolute Auto 0.1 0.0 - 0.4 X10*3/uL [facility] Basophils Absolute Auto 0.0 0.0 - 0.2 X10*3/uL [facility] NRBC Abs Auto 0.000 0.0 - 0.012 X10*3/uL [facility] 12/23/2024 10:2 8 AM EDT 12/23/2024 11:27 AM EDT us Generic External Data Provider LAB BLOOD ORDERAB LES Final Result [facility] [address] [place] [phone] * (ABNORMAL) Comprehensive Metabolic Panel (12/23/2024 10:28 AM EDT) Sodium 139 135 - 145 mmol/L [facility] Potassium 4.5 3.3 - 5.1 mmol/L [facility] Chloride 106 96 - 108 mmol/L [facility] Carbon Dioxide 28 22 - 29 mmol/L [facility] Anion Gap 10(L) 12 - 20 [facility] Urea Nitrogen (BUN) 13 9 - 16 mg/dL [facility] Creatinine, Serum 0.65 0.5 - 1.4 mg/dL [facility] Estimated Glomerular Filt Rate >60 [facility] Comment:Chronic Kidney Disea se: Estimated GFR < 60 mL/min/1.68q5[place] Kidney Disease: Estimated GFR < 15 mL/min/1.73m2 Glucose 88 60 - 115 mg/dL [facility] Calcium 8.7 8.4 - 10.2 mg/dL [facility] Bilirubin, Total 0.6 0.0 - 1.0 mg/dL [facility] Aspartate Amino Transferase 24 5 - 31 U/L [facility] Alanine Aminotransferase 20 0 - 31 U/L [facility] Total Protein 7.6 6.5 - 8.0 g/dL [facility] Albumin Level 4.3 3.5 - 5.0 g/dL [facility] Alkaline Phosphatase 81 39 - 117 U/L [facility] 12/23/2024 10:2 8 AM EDT 12/23/2024 11:13 AM EDT us Generic External Data Provider LAB BLOOD ORDERAB LES Final Result Performing Organization Address City/State/[facility] Co de Phone Number [facility] [address] [place] [phone] * XR CERVICAL SPINE 4V (11/28/2024 3:34 PM EDT) Anatomical Region Laterality Modality Abdomen Radiographic Luly ging 11/28/2024 3:34 PM EDT Narrative 11/28/2024 3:36 PM EDT [address] [address] XRay Report Signed Patient: Maki Luna I MR#: [id number] : 1965 Acct:[id number] Age/Sex: 59 / F ADM Date: 11/28/24 Loc: AB Attending Dr: Vladislav Kimball MD Ordering Physician: Vladislav Kimball MD Date of Service: 11/28/24 Procedure(s): XR cervical spine 4V Accession Number(s): [id number] cc: Madelyn Rinaldi MD; Vladislav Kimball MD CLINICAL HISTORY: M47.812 - Spondylosis without myelopathy or radiculopathy, cervical region 6 views cervical spine Comparison: None provided Findings: Normal vertebral body alignment. No acute fractures or dislocation. Multilevel disc space narrowing and endplate osteophyte formation, as well as facet hypertrophy. No prevertebral soft tissue swelling. IMPRESSION: No acute findings. This document has been electronically signed by: Leslie Li MD on 11/28/2024 15:34:35 Dictated By: Leslie Li MD Signed By: <Electronically signed by Leslie Li MD in OV> 11/28/24 1536 DD/ 1534 TD/TT: 11/28/24 1534 Learning And Development Consultant: Procedure Note Donotkristaninterpreter, Image - 11/28/[address] [address] XRay Report Signed Patient: Maki Luna IMR#: [id number] : 1965Acct:[id number] Age/Sex: 59 / FADM Date: 11/28/24 Loc: HO.XRAY Attending Dr: Vladislav Kimball MD Ordering Physician: Vladislav Kimball MD Date of Service: 11/28/24 Procedure(s): XR cervical spine 4V Accession Number(s): [id number] cc: Madelyn Rinaldi MD; Vladislav Kimball MD CLINICAL HISTORY: M47.812 - Spondylosis without myelopathy orradiculopathy, cervical region 6 views cervical spine Comparison: None provided Findings: Normal vertebral body alignment. No acute fractures or dislocation. Multilevel disc space narrowing and endplate osteophyte formation, as well as facet hypertrophy. No prevertebral soft tissue swelling. IMPRESSION: No acute findings. This document has been electronically signed by: Leslie Li MD on 11/28/2024 15:34:35 Dictated By: Leslie Li MD Signed By: <Electronically signed by Leslie Li MD in OV> 11/28/24 1536 DD/ 1534 TD/TT: 11/28/24 1534 Learning And Development Consultant: [facility] External Provider IMG XR PROCEDURES Final Result * Hm Colonoscopy (08/18/2024) Colonoscopy Normal Normal Narrative Zena Lovett - 08/18/2024 Repeat colonoscopy in 10 years .See the external hospital admission note on 08/18/2024 Historical Provider HEALTH MAINTENANCE Final Result * (ABNORMAL) Cologuard?? colon cancer screening (03/17/2024 9:25 AM EDT) Cologuard Result Positive( A) Negative 03/23/2024 12:54 AM EDT [facility] (CLIA #:[id number]) Comment: POSITIVE TEST RESULT. A positive Cologuard result should be followed with a colonoscopy or visual examination of the colon. The normal value (reference range) for this assay is negative. TEST DESCRIPTION: Composite algorithmic analysis of stool DNA-biomarkers with hemoglobin immunoassay. Quantitative values of individual biomarkers are not [...] screened with both Cologuard and colonoscopy. (Ganesh Perdomo al, N Engl J Med 2014;370(14):9554-3369.) Cologuard may produce a false negative or false positive result (no colorectal cancer or precancerous polyp present at colonoscopy follow up). A negative Cologuard test result does not guarantee the absence of CRC or advanced adenoma (pre-cancer). The current Cologuard screening interval is every 3 years. ([place] [employer] and U.S. Multi-Society Task Force). Cologuard performance data in a 10,000 patient pivotal study using colonoscopy as the reference method can be accessed at the following location: www.[employer]/results. Additional description of the Cologuard test process, warnings and precautions can be found at www.SkyRankrd.com. Stool specimen (specimen) 03/17/2024 9:25 AM EDT 03/18/2024 11:00 AM EDT Madelyn Rinaldi MD LAB MOLECULAR DIAGNOSTIC S ORDERABLES Final Result [facility] (CLIA #:[id number]) [place] [address], [place] [phone] * Hepatitis Panel, General (01/06/2024 9:06 AM EDT) Hepatitis A IgM Nonreactive Nonreactive [facility] Comment:IgM antibodies to BLANKENSHIP V not detected; does not exclude earlyacute or recovered HAV infection. ~Hepatitis B Surface Antibody NONREACTIVE Nonreactive [facility] Comment:Nonreactive: < 8.00 mIU/mL Hepatitis B Core Antibody Nonreactive Nonreactive [facility] Hepatitis C Antibody Nonreactive Nonreactive [facility] Comment:Antibodies to HCV no t detected; does not exclude early acuteHCV infection. Hepatitis B Surface Ag Negative Negative [facility] Blood 01/06/2024 9:06 AM EDT 01/06/2024 11:17 AM EDT Madelyn Rinaldi MD LAB BLOOD ORDERABLES Fin al Result Performing Organization Address City/[facility] Co de Phone Number [facility] [address] [place] [phone] * HIV-1/2 Antigen and Antibodies, Fourth Generation, with Reflexes (01/06/2024 9:06 AM EDT) HIV AB/AG Nonreactive Nonreactive [facility] Comment:HIV-1 p24 Ag and/or HIV-1/HIV-2 Ab not detected.A test result that is nonreactive does not exclude thepossibility of exposure to or infection with HIV-1 and/orHIV-2. Nonreactive results in this assay for individualswith prior exposure to HIV-1 and/or HIV-2 may be due toantigen and antibody levels that are below the limit ofdetection of this assay.The studentSN HIV Ag/Ab Combo assay result andsupplemental assay results should be interpreted inconjunction with the patient's clinical presentation,history and other laboratory results. If the results areinconsistent with clinical evidence, additional testing issuggested to confirm the result. Blood Venous blood specimen / Unknown 01/06/2024 9:06 AM EDT 01/06/2024 11:17 AM EDT Madelyn Rinaldi MD LAB BLOOD ORDERABLES Fin al Result Performing Organization Address [facility] Co de Phone Number [facility] [address] [place] [phone] * HPV mRNA E6/E7 w/Reflex to HPV Genotypes 16, 18/45 (11/20/2023 10:46 AM EDT) HPV nRNA E6/E7 Not Detected Not Detected [facility] Comment:Methodology: Transcr iption-Mediated AmplificationThis assay detects E6/E7 viral messenger RNA (mRNA) from 14high-risk HPV types (16,18,31,33,35,39,45,51,52,56,58,59,66,68).Cervical sources are required for HPV testing.If a vaginal source from a patient who has had atotal hysterectomy with removal of cervix wassubmitted, please contact the testing laboratoryfor alternative testing options.For additional information, please refer [email or web address](This link if provided for information/educational purposes only.)THIS TEST WAS PERFORMED AT:[facility] [place] [phone] MORALES MD HPV mRNA E6/E7 [facility] HPV 16 RNA [facility] HPV 18/45 RNA [facility] 11/20/2023 10:4 6 AM EDT 11/23/2023 10:40 AM EDT us Generic External Data Provider LAB CYTOLOGY TARIK RENAE Final Result Performing Organization Address [facility]/State/ZIP Co de Phone Number [facility] [address] [place] [address] [phone] * Pap Smear (11/20/2023 10:46 AM EDT) 11/20/2023 10:4 6 AM EDT 11/23/2023 10:40 AM EDT [employer] [facility] - 12/22/2023 8:41 AM EDT ----- ------- Name: Maki Luna I Age/Sex: 58/F : 1965 Unit#: [id number] Attend Dr: Juany Hui CNM Re11/20/23 Status: DEP REF Location: HO.LNP Disch: ----- ------- SPEC : [id number] RECD: 11/23/23-1039 STATUS: ANUPAM REAnthony NUM: [id number] VON: 11/20/23-[address] [facility] DR: Juany Hui CNM ENTERED: 11/23/23-1101 SP TYPE: Pap Smr [facility] DR: Madelyn Rinaldi MD ORDERED: Pap Smear, PAP path review Interpretation Satisfactory for evaluation. Negative for intraepithelial lesion or malignancy. Inflammation with associated cellular changes. HPV mRNA E6/E7: NOT DETECTED This assay detects E6/E7 viral messenger RNA (mRNA) from 14 high-risk HPV types (16, 18, 31, 33, 35, 39, 45, 51, 52, 56, 58, 59, 66, 68) HPV testing performed by [facility], [place], [place]. See reference laboratory portion of the EMR for entire report. Clinical Information LMP: Postmenopausal Previous PAP test: 11/17/2022, ASCUS Material Received ThinPrep-Cervical Copies To: Madelyn Rinaldi MD [facility] [address] [place], [place] [phone] Juany Hui CNM [facility] [address] [place] [address] ----- ------- Signed (signature on file) Theo Wei MD 12/22/23 0841 ----- ------- END OF REPORT us Generic External Data Provider LAB CYTOLOGY TARIK RENAE Final Result [facility] [address] [place], [place] [phone] from Last 3 Months or Most Recently Relevant to Health Maintenance Insurance [employer] C3 Care Teams Roll On Worker Relationship Specialty Start Date End Date Madelyn Rinaldi MD [address] [place] [id number] PCP - General Internal Medicine 01/04/24
== END 2025-02-07 10:34 | disposition home or self-care (01) ==
LOC: HO.XRAY 10:33
PROVIDERS: PCP Internal Medicine; Visit Provider General Practice
DX: M25.532 Pain in left wrist (principal)
CPT/HCPCS: 73110; 73130

== ENCOUNTER → 2025-02-07 10:38 | Outpatient (BNV) | payer MEDICAID, SELFPAY | PROVIDERS: PCP Internal Medicine; Visit Provider Radiology Diagnostic Radiology | DX: M79.645 Pain in left finger(s) (principal); M25.532 Pain in left wrist | CPT/HCPCS: 73110; 73130 ==

== ENCOUNTER 2025-02-08 12:43 | Outpatient (AMB) | payer MEDICAID, SELFPAY ==
--- OUTSIDE RECORDS SUMMARY | 2025-02-04 10:20 | XMS_ITS | Encounter Summary ---
Author Organization [employer] Address [address] [facility] [address] [place] [address] Care Team Providers Care Nursing Consultant Name Role Phone Sade Zhou MD Primary Care Provider + Reason for Visit * Reason Comments Walk-In Left hand injury 01/07 10/30 Encounter Details Date Type Department Care Team ([facility] st Contact Info) Description 02/04/2025 10:20 AM EDT Office Visit [facility] [address] [place] [address] Sendy Damico MD [address] [place] [address] Left wrist pain (Primary Dx) Social History Tobacco Use Types [...] Sign Reading Time Taken Comments Blood Pressure 113/78 02/04/2025 10:02 AM EDT Pulse 82 02/04/2025 10:02 AM EDT Temperature 36.1 C (97 F) 02/04/2025 10:02 AM EDT Respiratory Rate 18 02/04/2025 10:02 AM EDT Oxygen Saturation 97% 02/04/2025 10:02 AM EDT Inhaled Oxygen Concentration - - Weight 65.8 kg (145 lb) 02/04/2025 10:02 AM EDT Height 167.6 cm (5' 6 ) 02/04/2025 10:02 AM EDT Body Mass Index 23.4 02/04/2025 10:02 AM EDT documented in this encounter Progress Notes * Sendy Damico MD - 02/04/2025 10:20 AM EDT SUBJECTIVE: Maki Broussard is a 59 y.o. female who presents for acute visit. Denies recent illness, ER visit, or hospitalization. Acute Concerns: - Swelling in the left arm for 5 days, with associated pain and limited movement in fingers, after being hit by a falling coconut. Left arm and finger swelling and pain - Swelling in the arm reported, onset 5 days ago - Pain in the wrist and 3, 4, 5th finger area - Decreased movement in the affected area - Difficulty using two fingers (4th and 5th), unable to pinch with them - Sensation changes reported: unable to feel touch on the outside of the left finger - Used homemade remedies, including application of ice and Epsom salt - No medical attention sought prior to this encounter, no splint used - Symptoms began while in [place] Patient Active Problem List Diagnosis Date Noted Acute myeloid leukemia with minimal differentiation, in remission ([facility]) 02/04/2025 Cervicalgia 02/04/2025 History of endometrial hyperplasia 02/04/2025 History of Helicobacter pylori infection 02/04/2025 IUD check up 02/04/2025 Myofascial pain on right side 02/04/2025 Right shoulder pain 02/04/2025 Scapular dyskinesis 02/04/2025 Left wrist pain 02/04/2025 Dyspepsia 08/09/2024 Post-nasal drip 07/21/2024 H. pylori infection 06/14/2024 Positive colorectal cancer screening using Cologuard test 03/24/2024 Hyperlipidemia LDL goal <130 03/07/2024 Encounter for colorectal cancer screening 03/07/2024 [place] (dyspnea on exertion) 01/05/2024 Radiculopathy, lumbar region 01/04/2024 Acute myeloid leukemia in remission ([facility]) 06/10/2023 Endometrial hyperplasia without atypia 06/10/2023 Anxiety associated with depression 06/10/2023 Leukemia in remission ([facility]) 2017 Surgical History[1] Social History Social History Narrative Lives with . Has 3 adult daughters who I've independently. Currently on disability due to depression Review of Systems Constitutional: Negative. Respiratory: Negative. Cardiovascular: Negative. Musculoskeletal: Positive for arthralgias. Skin: Positive for color change. OBJECTIVE: Vitals: 02/04/25 1002 BP: 113/78 BP Location: Left arm Patient Position: Sitting BP Cuff Size: Adult Pulse: 82 Resp: 18 Temp: 97 ??F (36.1 ??C) TempSrc: Oral SpO2: 97% Weight: 145 lb (65.8 kg) Height: 5' 6 (1.676 m) Physical Exam Vitals and nursing note reviewed. Constitutional: Appearance: Normal appearance. HENT: Head: Normocephalic and atraumatic. Cardiovascular: Rate and Rhythm: Normal rate and regular rhythm. Pulses: Normal pulses. Heart sounds: Normal heart sounds. Pulmonary: Effort: Pulmonary effort is normal. Breath sounds: Normal breath sounds. Musculoskeletal: General: Swelling, tenderness, deformity and signs of injury present. Right wrist: Normal. Left wrist: Swelling, tenderness, bony tenderness and snuff box tenderness present. Decreased rangeof motion. Comments: Bruising over 3, 4, 5th fingers at MCP and PIP, limited ROM at these joints, pain at snuffbox and limited range of motion at wrist Skin: General: Skin is warm and dry. Neurological: General: No focal deficit present. Mental Status: She is alert and oriented to person, place, and time. Psychiatric: Mood and Affect: Mood normal. Behavior: Behavior normal. ASSESSMENT/PLAN Problem List Items Addressed This Visit Left wrist pain - Primary Current Assessment & Plan Swelling and pain in the L wrist and fingers: - Ordered X-ray of the affected area. Advised to go to the hospital for imaging. Will call with results once available. Limited movement and numbness in two fingers: - Ordered X-ray to evaluate underlying cause. Advised to proceed to hospital for imaging. Splint ordered and applied to provide immobilization Relevant Medications doxycycline (Vibramycin) 100 MG capsule Other Relevant Orders XR Wrist 3+ Views Left XR Hand 3+ Views Left Follow Up: per PCP recall months or sooner prn Allergies[2] Current Medications[3] Georgian Translation: Provided by [facility] staff member WELLINGTON Gambino [1] History reviewed. No pertinent surgical history. [2] Allergies Allergen Reactions Hydroxyzine Intolerance: Dry mouth, nausea. Mirtazapine GI intolerance Seafood [Shellfish Allergy] Zofran [Ondansetron] Zolpidem Had EP symptoms [3] Current Outpatient Medications: Bisacodyl EC 5 MG EC tablet, TOME CUATRO TABLETAS POR V A ORAL AT NOON THE DAY BEFORE YOUR COLONOSCOPY, Disp: , Rfl: bismuth subsalicylate (Pepto Bismol) 262 MG chewable tablet, TOME DOS TABLETAS POR V A ORAL CUATRO VECES AL D A FOR DIARRHEA FOR 14 DAYS, Disp: , Rfl: doxycycline (Vibramycin) 100 MG capsule, Take 1 capsule by mouth 2 times daily., Disp: , Rfl: GaviLAX 17 GM/SCOOP powder, TAKE 238 GRAMS DISSOLVED IN LIQUID DIRECTED BY GASTROENTEROLOGY DEPTAT [facility] DEPT, Disp: , Rfl: loratadine (Claritin) 10 MG tablet, TOME PAPO TABLETA TODOS LOS D , Disp: , Rfl: metoclopramide (Reglan) 5 MG tablet, TOME PAPO TABLETA POR V A ORAL DOS VECES AL D A, Disp: , Rfl: metroNIDAZOLE (Flagyl) 500 MG tablet, TOME DOS TABLETAS POR V A ORAL DOS VECES AL D A, Disp: , Rfl: QUEtiapine (SEROquel) 25 MG tablet, TOME 1 TABLETA POR V A ORAL TODOS LOS D AL ACOSTARSE CUANDO SEA NECESARIO, Disp: , Rfl: acetaminophen (Tylenol) 500 MG tablet, Take 2 tablets (1,000 mg) by mouth every 6 (six) hours if needed for moderate pain or fever for up to 25 doses., Disp: 50 tablet, Rfl: 0 albuterol 108 (90 Base) MCG/ACT inhaler, Inhale 2 puffs every 4 (four) hours if needed for wheezingor shortness of breath., Disp: 18 g, Rfl: 1 busPIRone (Buspar) 10 MG tablet, TAKE 1 TABLET BY MOUTH AT BEDTIME, Disp: 30 tablet, Rfl: 3 cetirizine (ZyrTEC) 10 MG tablet, 1 tab daily by mouth as needed for allergies, Disp: 90 tablet, Rfl: 0 cyclobenzaprine (Flexeril) 10 MG tablet, TAKE 1 TABLET BY MOUTH AT BEDTIME NEEDED FOR PAIN OF MUSCLES, DO NOT DRIVE WITH MEDICATION, Disp: 30 tablet, Rfl: 0 fluticasone (Flonase) 50 MCG/ACT nasal spray, Administer 1 spray into each nostril 2 times daily., Disp: 48 g, Rfl: 3 lidocaine (Lidoderm) 5 % patch, APPLY 1 PATCH TOPICALLY ONCE PER DAY. REMOVE & DISCARD PATCH WITHIN 12 HOURS OR DIRECTED BY MD., Disp: 30 patch, Rfl: 0 montelukast (Singulair) 10 MG tablet, Take 10 mg by mouth 1 (one) time each day., Disp: , Rfl: nabumetone (Relafen) 500 MG tablet, Take 1 tablet (500 mg) by mouth 2 times daily., Disp: 180 tablet, Rfl: 3 omeprazole (PriLOSEC) [address] capsule, Take 1 capsule (20 mg) by mouth before breakfast. Do not crush or chew., Disp: 90 capsule, Rfl: 0 Spacer/Aero-Holding Chambers (OptiChamber Dora) misc, 1 each every 4 (four) hours if needed (asthma)., Disp: 1 each, Rfl: 0 sucralfate (Carafate) 1 GM/10ML suspension, TAKE 10 ML (1 G) BY MOUTH IF NEEDED IN THE MORNING, AT NOON, AND AT BEDTIME (AB PAIN/BLOATING)., Disp: 900 mL, Rfl: 1 traZODone (Desyrel) 50 MG tablet, TAKE 1 TABLET BY MOUTH AT BEDTIME, Disp: 30 tablet, Rfl: 1 documented in this encounter Miscellaneous Notes * Assessment & Plan Note - Sendy Damico MD - 02/04/2025 10:25 AM EDT Associated Problem(s): Left wrist pain Swelling and pain in the L wrist and fingers: - Ordered X-ray of the affected area. Advised to go to the hospital for imaging. Will call with results once available. Limited movement and numbness in two fingers: - Ordered X-ray to evaluate underlying cause. Advised to proceed to hospital for imaging. Splint ordered and applied to provide immobilization documented in this encounter Plan of Treatment Upcoming Encounters Date Type Department Care Team (Late st Contact Info) Description 02/13/2025 10:30 AM EDT Nutrition [facility] DIABETES/NUTRITION [address] [place] [address] Amada Farmer, RD [address] [place] [address] documented as of this encounter Procedures Procedure Name Priority Date/Time Associated Diagnosis Comments XR WRIST 3+ VIEWS LEFT Routine 02/08/2025 1:12 PM EDT Left wrist pain XR HAND 3+ VIEWS LEFT Routine 02/08/2025 1:11 PM EDT Left wrist pain documented in this encounter Results * XR Wrist 3+ Views Left (02/08/2025 1:12 PM EDT) Anatomical Region Laterality Modality Upper Extremities, Wrist Left Radiogr aphic Imaging 02/08/2025 1:12 PM EDT Narrative 02/08/2025 1:12 PM EDT [address] [address] XRay Report Signed with Addenda Patient: Maki Luna I MR#: [id number] : 1965 Acct:[id number] Age/Sex: 59 / F ADM Date: 02/07/25 Loc: HO.XRAY Attending Dr: Sendy Damico MD Ordering Physician: Sendy Damico Date of Service: 02/07/25 Procedure(s): XR wrist LT min 3V Accession Number(s): [id number] cc: Sade Zhou MD; Sendy Damico Reason for Exam: pain at 3,4,5th fingers and lack of mobilityat finger ADDENDUM This document has been electronically signed by: Mildred Moody MD on 02/08/2025 13:12:03 ADDENDUM: Receipt of this report by the clinical staff was confirmed with Cristin Muñoz RN on Feb 08, 2025 14:41:00 EDT. This document has been electronically signed by: Luz Carrillo on 02/08/2025 14:41:52 Addendum Dictated By: Mildred Moody MD Addendum Signed By: <Electronically signed by Mildred Moody MD in OV> 02/08/25 1442 Addendum Cosigned By: DD/ /31/1311 TD/TT: 02/08/2508/30/1440 CLINICAL HISTORY: pain at 3,4,5th fingers and lack of mobilityat finger 4 view left wrist Comparison: None provided Findings: Wrist and hand radiographs would be reported concurrently. Normal alignment. Age-indeterminate mildly impacted and up to 2 mm displaced fracture of the 5th metacarpal neck. Correlate clinically for presence or absence of focal tenderness. Otherwise no evidence of acute fracture. No radiopaque foreign body. IMPRESSION: Age-indeterminate mildly impacted and up to 2 mm displaced fracture of the 5th metacarpal neck. Correlate clinically for presence or absence of focal tenderness. Otherwise no evidence of acute fracture. This document has been electronically signed by: Mildred Moody MD on 02/08/2025 13:12:03 Dictated By: Mildred Moody MD Signed By: <Electronically signed by Mildred Moody MD in OV> 02/08/251311 DD/ 11 TD/TT: 02/08/251311 3Rd Mate: Procedure Note Donotuseinterpreter, Image - 02/08/[address] [address] XRay Report Signed with Addenda Patient: Maki Luna IMR#: [id number] : 1965Acct:[id number] Age/Sex: 59 / FADM Date: 02/07/25 Loc: HO.XRAY Attending Dr: Sendy Damico MD Ordering Physician: Sendy Damico Date of Service: 02/07/25 Procedure(s): XR wrist LT min 3V Accession Number(s): [id number] cc: Sade Zhou MD; Sendy Damico Reason for Exam: pain at 3,4,5th fingers and lack of mobilityat finger ADDENDUM This document has been electronically signed by: Mildred Moody MD on 02/08/2025 13:12:03 ADDENDUM: Receipt of this report by the clinical staff was confirmed with Cristin Muñoz RN on Feb 08, 2025 14:41:00 EDT. This document has been electronically signed by: Luz Carrillo on 02/08/2025 14:41:52 Addendum Dictated By: Mildred Moody MD Addendum Signed By: <Electronically signed by Mildred Moody MDin OV> 02/08/251441 Addendum Cosigned By: DD/ /31/1311 TD/TT: 02/08/2508/30/1440 CLINICAL HISTORY: pain at 3,4,5th fingers and lack of mobilityat finger 4 view left wrist Comparison: None provided Findings: Wrist and hand radiographs would be reported concurrently. Normal alignment. Age-indeterminate mildly impacted and up to 2 mm displaced fracture of the 5th metacarpal neck. Correlate clinically for presence or absence of focal tenderness. Otherwise no evidence of acute fracture. No radiopaque foreign body. IMPRESSION: Age-indeterminate mildly impacted and up to 2 mm displaced fracture of the 5th metacarpal neck. Correlate clinically for presence or absence of focal tenderness. Otherwise no evidence of acute fracture. This document has been electronically signed by: Mildred Moody MD on 02/08/2025 13:12:03 Dictated By: Mildred Moody MD Signed By: <Electronically signed by Mildred Moody MD in OV> 02/08/25 1312 DD/ 1312 TD/TT: 02/08/251311 3Rd Mate: Sendy Damico MD IMG XR PROCEDURES Edited Resul t - Final * XR Hand 3+ Views Left (02/08/2025 1:11 PM EDT) Anatomical Region Laterality Modality Upper Extremities, Hand Left Radiogra [facility] 02/08/2025 1:11 PM EDT Narrative 02/08/2025 1:12 PM EDT [place] [address] XRay Report Signed Patient: Maki Luna I MR#: [id number] : 1965 Acct:[id number] Age/Sex: 59 / F ADM Date: 02/07/25 Loc: AB Attending Dr: Sendy Damico MD Ordering Physician: Sendy Damico Date of Service: 02/07/25 Procedure(s): XR hand LT min 3V Accession Number(s): [id number] cc: Sade Zhou MD; Sendy Damico Reason for Exam: pain at 3,4, 5th fingers CLINICAL HISTORY: pain at 3,4, 5th fingers 3 view left hand Comparison: None provided Findings: Wrist and hand radiographs would be reported concurrently. Normal alignment. Age-indeterminate mildly impacted and up to 2 mm displaced fracture of the 5th metacarpal neck. Correlate clinically for presence or absence of focal tenderness. Otherwise no evidence of acute fracture. No radiopaque foreign body. IMPRESSION: Age-indeterminate mildly impacted and up to 2 mm displaced fracture of the 5th metacarpal neck. Correlate clinically for presence or absence of focal tenderness. Otherwise no evidence of acute fracture. This document has been electronically signed by: Mildred Moody MD on 02/08/2025 13:11:50 Dictated By: Mildred Moody MD Signed By: <Electronically signed by Mildred Moody MD in OV> 02/08/251311 DD/ 131 TD/TT: 02/08/251310 3Rd Mate: Procedure Note Donotuseinterpreter, Image - 02/08/2025 [place] [address] XRay Report Signed Patient: Maki Luna IMR#: [id number] : 1965Acct:[id number] Age/Sex: 59 / FADM Date: 02/07/25 Loc: AB Attending Dr: Sendy Damico MD Ordering Physician: Sendy Damico Date of Service: 02/07/25 Procedure(s): XR hand LT min 3V Accession Number(s): [id number] cc: Sade Zhou MD; Sendy Damico Reason for Exam: pain at 3,4, 5th fingers CLINICAL HISTORY: pain at 3,4, 5th fingers 3 view left hand Comparison: None provided Findings: Wrist and hand radiographs would be reported concurrently. Normal alignment. Age-indeterminate mildly impacted and up to 2 mm displaced fracture of the 5th metacarpal neck. Correlate clinically for presence or absence of focal tenderness. Otherwise no evidence of acute fracture. No radiopaque foreign body. IMPRESSION: Age-indeterminate mildly impacted and up to 2 mm displaced fracture of the 5th metacarpal neck. Correlate clinically for presence or absence of focal tenderness. Otherwise no evidence of acute fracture. This document has been electronically signed by: Mildred Moody MD on 02/08/2025 13:11:50 Dictated By: Mildred Moody MD Signed By: <Electronically signed by Mildred Moody MD in OV> 02/08/251311 DD/ 10 TD/TT: 02/08/25 1311 3Rd Mate: Sendy Damico MD IMG XR PROCEDURES Final Result documented in this encounter Visit Diagnoses Diagnosis Left wrist pain- Primary Pain in joint, forearm documented in this encounter Additional Health Concerns Assessment Noted Time PHQ-9 Depression Total Score: 5 07/21/19 25 12:14 PM EST documented as of this encounter Care Teams Nursing Consultant Relationship Specialty Start Date End Date Sade Zhou MD [address] [place] [id number] PCP - General Internal Medicine 01/04/24 documented as of this encounter
--- NOTE | 2025-02-08 13:06 | A.OFFVIS_ITS ---
Vital Signs 02/08/25 13:07 Weight 145 lb BP 109/74 Blood Pressure Location Lt brachial Position Standing Respiration 18 Pulse 80 Pulse Source Pulse Oximeter Pulse Oximetry (%) 100 Oxygen Delivery Method Room Air Intake Visit Reasons: 1 month FU Physical Therapy Assistant Required: Yes Physical Therapy Assistant Name: [id number] Allergies ondansetron (From ZOFRAN ( HYDROCHLORIDE)) Allergy (Intermediate, Verified 02/08/25 13:09) INVOLUNTARY MOVEMENTS;MENTAL BLOCK Seasonal Allergies Allergy (Mild, Verified 02/08/25 13:09) Sneezing HPI Comments Details: Maki is back in my office after 1 month of absence. She was referred to physical therapy, however she stated that she had to go to [place] and starting physical therapy tomorrow. I explained to the patient that without her completing physical therapy I will not be able to recommend her any injections. I explained to the patient importance of physical therapy. I will take under my personal control this patient's starting physical therapy. I will see her 1 month after she will complete at least 8 sessions of physical therapy and home exercise program. She also was sent for CBC, platelets on 12/23/2024 =210K. INR was checked in 2018 it was normal. Prior: severe pain in the lower lumbar spine. She never had physical therapy for the lumbar spine. One year ago she was here for pain in the right shoulder in the projection of the right shoulder blade as well as pain in the right knee and the right hip. She relates her pain in the knee and the hip to frequent falls she has in the past 3 years. She reports instant weakness in the right side of the body after which she falls. She was sent to neurologist for EMG on the right side which did not demonstrate any pathology. She was treated with our Oncology office for acute myeloid leukemia according to her she is currently in remission. 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 She reported that she saw her oncologist few days ago. We need to obtain the information about her condition from oncology office. She also was examined in the office of orthopedic surgery and diagnosed with scapular dyskinesia. She was recommended physical therapy. [facility] Medical History History of endometrial hyperplasia History of Helicobacter pylori infection Endometrial hyperplasia without atypia Leukemia Surgical History Hx of tubal ligation Family History Paternal Aunt Throat cancer Sister HX: breast cancer, Onset Age: 50 Maternal Aunt HX: breast cancer Asthma Mother Hypertension Social History Household Members: None Housing: Apartment Are you a primary health care facilities inspector to a significant other at home: No Do you presently have visiting nurse or other home services: No Alcohol intake: former Patient Tobacco Use Status: Never used Tobacco service: No Current occupational status: unemployed Review of Systems Const All systems reviewed & are unremarkable except as noted in HPI and below Eyes Denies photophobia ENT Reports Normal hearing present Neuro Reports Normal hearing present Physical Exam Vital Signs: Last Vital Signs Pulse 80 02/08/25 13:07 Resp 18 02/08/25 13:07 BP 109/74 02/08/25 13:07 Pulse Ox 100 02/08/25 13:07 Oxygen Delivery Method Room Air 02/08/25 13:07 Const General: cooperative, healthy appearing, no acute distress and alert Orientation/consciousness: patient oriented x3 Limitations: No ambulation with cane, No ambulation with walker and No wheelchair HEENT Head: Yes normal to inspection, Yes normocephalic and Yes atraumatic Ears: hearing grossly normal bilaterally Eyes General: appearance normal, both eyes and all related structures Eyelids: Yes eyelids normal Sclerae: sclerae normal Pupils: Equal, round and reactive pupils present EOM: EOMs intact bilaterally Direct Ophthalmoscopy: No photophobia Neck Neck: Yes normal visual inspection, Yes full ROM, Yes trachea midline and Yes no JVD Chest Chest palpation & inspection: normal inspection of the chest Resp Effort & Inspection: normal respiratory effort, able to speak in complete sentences and no audible wheezes Cardio Jugular venous distension: no JVD Palpation: other (no appreciable rhythmic abnormalities) Peripheral pulses: radial pulses present (no palpable rhythmic abnormalities detected) bilateral and other Back/Spine/Pelvis Other: Tenderness on palpation in paraspinal spinal region lumbar spine. Loading test is positive bilaterally. Cervical Spine: cervical ROM normal Neuro General: patient oriented x3, gait normal, moves all extremities and Normal light touch and pain sensation Cranial nerves: Yes CN's II-XII intact bilaterally (Tenderness on palpation right branch of trigeminal), Yes Equal, round and reactive pupils present and Yes Normal hearing present Cognition (Neuro): normal cognition Gait exam (Neuro): Normal gait present Motor exam (neuro): 5/5 motor strength present throughout, Pronator motor function not present, no tremor noted, Motor fasciculations not present and Abnormal motor strength present Extrem General: Yes normal to inspection, Yes full ROM and Yes no pedal edema Psych Appearance: grossly normal Speech and movement: Normal speech and movement present and Clear speech present Affect: normal affect Attitude: cooperative Thought process: Normal thought process present Thought content: Normal thought content present Insight: Good insight present (Psych) Judgement: Good judgement present (Psych) Assessment & Plan Assessment & Plan (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: Code(s): M47.816 - Spondylosis without myelopathy or radiculopathy, lumbar region Category: Medical (2) Spondylosis of cervical joint without myelopathy: Code(s): M47.812 - Spondylosis without myelopathy or radiculopathy, cervical region Category: Medical (3) Chronic pain syndrome: Code(s): G89.4 - Chronic pain syndrome Category: Medical (4) Acute myeloid leukemia: Code(s): C92.00 - Acute myeloblastic leukemia, not having achieved remission Category: Medical Plan Because of her lower back pain being more severe than the cervical pain we decided to address this issue with lower back pain at this time. To evaluate her cervical spine I will send her for cervical spine x-ray. I sent her for physical therapy of the lumbar spine. However patient did not started yet. She will started tomorrow. When she will complete physical therapy she will visit me in the office. She may continue tizanidine 2 mg t.i.d. with refills I prescribed to her last time. CBC is normal, somehow she did not submit her INR but in 2018 her INR was normal, no history of liver problems, not on blood thinners.. Coding Level of Care Code Est Pt Level 3 (58424) Diagnoses Spondylosis of lumbar region without myelopathy or radiculopathy M47.816 Spondylosis of cervical joint without myelopathy M47.812 Chronic pain syndrome G89.4 Acute myeloid leukemia C92.00
[2025-02-08 13:07] VITALS: BP 109/74; PULSE 80; RESP 18; O2SAT 100
--- OUTSIDE RECORDS SUMMARY | 2025-02-08 15:06 | XMS_ITS | Clinical Summary ---
Author Organization [employer] Address [address] [facility] 7t [place] [address] Care Team Providers Care Technical Asst Name Role Phone Madelyn Rinaldi MD Primary [...] IN LIQUID DIRECTED BY GASTROENTEROLOGY DEPT AT [facility] DEPT 06/29/19 Active QUEtiapine (SEROquel) 25 [...] to continue follow-up with pain clinic at [facility], new referral sent Advised to hold Relafen due to GERD, take Tylenol and lidocaine patch Advised regarding physical activity for at least 15 minutes daily Gave her information regarding acupuncture clinic Assessment & Plan (03/07/2024 4:30 PM EDT): FU by [facility] pain clinic, I advised her to call them as she hs not been able to do MRI, to look for another POC Continue flexeril for now, advised her to come for acupuncture clinic. Assessment & Plan (01/05/2024 9:31 AM EDT): Longstanding, seen at [facility] Pain clinic. Advised to get Lumbar MRI, [...] 06/08/2016 Overview (01/04/2024): FU'd by Dr Major, [facility]. Assessment & Plan (01/05/2024 9:34 AM EDT): [...] Encounters Date Type Department Care Team Description 02/08/2025 Telephone [facility] [address] [place] [address] Madelyn Rinaldi MD requesting call back 02/04/2025 10:20 AM EDT Office Visit [facility] [address] [place] [address] Sendy Damico MD Left wrist pain (Primary Dx) 12/27/2024 1:40 PM EDT Office Visit [facility] [address] [place] [phone] Angel Quiñonez MD Abdominal bloating (Primary Dx) 12/27/2024 Travel 12/25/2024 Refill [facility] [address] [place] [phone] Madelyn Rinaldi MD Strain of cervical portion of right trapezius muscle 12/23/2024 Orders Only GENERIC EXTERNAL DATA DEPARTMENT Provider, Generic External Data 12/21/2024 Telephone [facility] [address] [place] [phone] Madelyn Rinaldi MD Labs (I informed the patient that [facility] labs were ordered, because the results are being requested by [facility] Services. She stated that she will come to the [facility] lab on 12/22/24, to have them done.) 12/21/2024 Orders Only [facility] [address] [place] [phone] Madelyn Rinaldi MD Screening-pulmonary TB (Primary Dx) 12/19/[address] [address] Madelyn Rinaldi MD February12/18/2024 Refill [facility] [address] [place] [address] [phone] Madelyn Rinaldi MD 11/29/[address] [address] Madelyn Rinaldi MD telephone call; Durable Medical Equipment (DME Order: Cane) 11/29/2024 Refill [facility] [address] [place] [address] [phone] Madelyn Rinaldi MD Post-nasal drip 11/28/2024 Orders Only GENERIC EXTERNAL DATA DEPARTMENT Provider, Generic External Data 11/22/2024 Refill [facility] [address] [place] [address] [phone] Winnie, Cindi, MD Strain of cervical portion of right [...] your housing situation today? I have yung reanna 12/25/[address] you li [...] Info) Description 02/13/2025 10:30 AM EDT Nutrition [facility]NUTRITION [address] [place], [place] [phone] Amada Farmer [address] [place], [place] [phone] Health Maintenance Due Date Last Done Comments [...] Comments XR WRIST 3+ VIEWS LEFT Routine 1:12 PM EDT Left wrist pain XR HAND 3+ VIEWS LEFT Routine 02/08/2025 1:11 PM EDT Left wrist pain COMPREHENSIVE METABOLIC PANEL Routine 12/23/2024 10:28 AM [...] Recently Relevant to Health Maintenance Results * XR Wrist 3+ Views Left (02/08/2025 1:12 PM EDT) Anatomical Region Laterality Modality Upper Extremities, Wrist Left Radiogr aphic Imaging 02/08/2025 1:12 PM EDT Narrative 02/08/2025 1:12 PM EDT [place] [address] INESay Report Signed with Addenda Patient: Maki Luna I MR#: [id number] : 1965 Acct:[id number] Age/Sex: 59 / F ADM Date: 02/07/25 Loc: AB Attending Dr: Sendy Damico MD Ordering Physician: Sendy Damico Date of Service: 02/07/25 Procedure(s): XR wrist LT min 3V Accession Number(s): [id number] cc: Madelyn Rinaldi MD; Sendy Damico Reason for Exam: pain [...] signed by Mildred Moody MD in OV> 02/08/251441 Addendum Cosigned By: DD/ /31/1311 [...] in OV> 02/08/251311 DD/ 11 TD/TT: 02/08/251311 Manager Managed Back[employer] Services: Procedure Note Donotuseinterpreter, Image - 02/08/2025 [place] [address] XRay Report Signed with Addenda Patient: Maki Luna IMR#: [id number] : 1965Acct:[id number] Age/Sex: 59 / FADM Date: 02/07/25 Loc: AB Attending Dr: Sendy Damico MD Ordering Physician: Sendy Damcio Date of Service: 02/07/25 Procedure(s): XR wrist LT min 3V Accession Number(s): [id number] cc: Madelyn Rinaldi MD; Sendy Damico Reason for Exam: pain [...] in OV> 02/08/251311 DD/ 11 TD/TT: 02/08/251311 Manager Man[employer] Services: Sendy Damico MD IMG XR PROCEDURES Edited Resul t - Final * XR Hand 3+ Views Left (02/08/2025 1:11 PM EDT) Anatomical Region Laterality Modality Upper Extremities, Hand Left Radiogra [facility] 02/08/2025 1:11 PM EDT Narrative 02/08/2025 1:12 PM EDT [address] [address] XRay Report Signed Patient: Maki Luna I MR#: [id number] : 1965 Acct:[id number] Age/Sex: 59 / F ADM Date: 02/07/25 Loc: HOCLAR[facility] Attending Dr: Sendy Damico MD Ordering Physician: Sendy Damico Date of Service: 02/07/25 Procedure(s): XR hand LT min 3V Accession Number(s): [id number] cc: Madelyn Rinaldi MD; Sendy Damico Reason for Exam: pain [...] Moody MD in OV> 02/08/25 1312 DD/ 1311 TD/TT: 02/08/25 1311 Manager Man[employer] Services: Procedure Note Donotuseinterpreter, Image - 02/08/2025 [place] [address] XRay Report Signed Patient: Maki Luna IMR#: [id number] : 1965Acct:[id number] Age/Sex: 59 / FADM Date: 02/07/25 Loc: AB Attending Dr: Sendy Damico MD Ordering Physician: Sendy Damico Date of Service: 02/07/25 Procedure(s): XR hand LT min 3V Accession Number(s): [id number] cc: Madelyn Rinaldi MD; Sendy Damico Reason for Exam: pain [...] Moody MD in OV> 02/08/25 1312 DD/ 1311 TD/TT: 02/08/25 1311 Manager Man[employer] Back[employer] Services: Sendy Damico MD IMG XR PROCEDURES Final Result * T-SPOT??.TB (12/23/2024 10:28 AM EDT) T Spot TB Negative Negative [facility] Comment:A negative test resu lt [...] as aquantitative test. TS PANEL A 0 [facility] TS PANEL B 0 [facility] Negative Control Passed [facility] Positive Control Passed [facility] Comment:For additional infor nirali, please refer [email or web address] Pulse/faq/PJZ718(This link is being provided for informational/educational purposes only.)REPORT COMMENT:REC'D IN CHYTHIS TEST WAS PERFORMED AT:[facility] [id number] [place] [id number] FREDERICK MD,PHD 12/23/2024 10:2 8 AM EDT 12/23/2024 11:26 AM EDT us Madelyn Rinaldi MD LAB BLOOD ORDERABLES Fin al Result [facility] [address] [place] [address] [phone] * CBC auto differential (12/23/2024 10:28 AM EDT) Only the most recent of2 resultswithin the time period is included. White Blood Count 4.9 4.8 - 10.8 X10*3/uL [facility] Red Blood Count 4.33 4.20 - 5.50 X10*6/uL [facility] Hemoglobin 13.5 12.0 - 16.0 g/dl [facility] Hematocrit 40.4 37.0 - 47.0 % [facility] Mean Corpuscular Volume 93.3 80.0 - 98.0 fL [facility] Mean Corpuscular Hemoglobin 31.2 27.0 - 33.0 pg [facility] Mean Corpuscular HGB Conc 33.4 31.0 - 35.0 g/dl [facility] Red Cell Distribution Width 12.1 11.0 - 16.0 % [facility] Platelet Count 210 160 - 400 X10*3/uL [facility] Mean Platelet Volume 9.7 9.4 - 12.3 fL [facility] Neutrophils Percent Auto 64.5 45 - 73 % [facility] Imm Gran Pct Auto 0.2 0.0 - 0.4 % [facility] Lymphocytes Percent Auto 26.7 20 - 40 % [facility] Monocytes Percent Auto 6.8 2 - 11 % [facility] Eosinophils Percent Auto 1.2 0 - 4 % [facility] Basophils Percent Auto 0.6 0 - 2 % [facility] NRBC Pct Auto 0.0 0.0 - 0.2 /100WBC [facility] Neutrophils Absolute Auto 3.1 2.0 - 8.3 x10*3/uL [facility] Imm Gran Abs Auto 0.01 0.00 - 0.03 X10*3/uL [facility] Lymphocytes Absolute Auto 1.3 1.2 - 4.9 X10*3/uL [facility] Monocytes Absolute Auto 0.3 0.1 - 1.2 X10*3/uL [facility] Eosinophils Absolute Auto 0.1 0.0 - 0.4 X10*3/uL [facility] Basophils Absolute Auto 0.0 0.0 - 0.2 X10*3/uL [facility] NRBC Abs Auto 0.000 0.0 - 0.012 X10*3/uL [facility] 12/23/2024 10:2 8 AM EDT 12/23/2024 11:27 AM EDT us Generic External Data Provider LAB BLOOD ORDERAB LES Final Result [facility] [address] [place] [phone] * (ABNORMAL) Comprehensive Metabolic Panel (12/23/2024 10:28 AM EDT) Sodium 139 135 - 145 mmol/L [facility] Potassium 4.5 3.3 - 5.1 mmol/L [facility] Chloride 106 96 - 108 mmol/L [facility] Carbon Dioxide 28 22 - 29 mmol/L [facility] Anion Gap 10(L) 12 - 20 [facility] Urea Nitrogen (BUN) 13 9 - 16 mg/dL [facility] Creatinine, Serum 0.65 0.5 - 1.4 mg/dL [facility] Estimated Glomerular Filt Rate >60 [facility] Comment:Chronic Kidney Disea se: Estimated GFR < 60 mL/min/1.88c1Plnujv Kidney Disease: Estimated GFR < 15 mL/min/1.73m2 Glucose 88 60 - 115 mg/dL [facility] Calcium 8.7 8.4 - 10.2 mg/dL [facility] Bilirubin, Total 0.6 0.0 - 1.0 mg/dL [facility] Aspartate Amino Transferase 24 5 - 31 U/L [facility] Alanine Aminotransferase 20 0 - 31 U/L [facility] Total Protein 7.6 6.5 - 8.0 g/dL [facility] Albumin Level 4.3 3.5 - 5.0 g/dL [facility] Alkaline Phosphatase 81 39 - 117 U/L [facility] 12/23/2024 10:2 8 AM EDT 12/23/2024 11:13 AM EDT us Generic External Data Provider LAB BLOOD ORDERAB LES Final Result Performing Organization Address City/State/[facility] Co de Phone Number [facility] [address] [place] [phone] * XR CERVICAL SPINE 4V (11/28/2024 3:34 PM EDT) Anatomical Region Laterality Modality Abdomen Radiographic Luly ging 11/28/2024 3:34 PM EDT Narrative 11/28/2024 3:36 PM EDT [address] [address] XRay Report Signed Patient: Maki Luna I MR#: [id number] : 1965 Acct:[id number] Age/Sex: 59 / F ADM Date: 11/28/24 Loc: AB Attending Dr: Vladislav Kimball MD Ordering Physician: Vladislav Kimball MD Date of Service: 11/28/24 Procedure(s): XR cervical spine 4V Accession Number(s): [id number] cc: Madelyn Rinaldi MD; Vladislav Kimball MD [...] OV> 11/28/24 1536 DD/ 1534 TD/TT: 11/28/24 153 Manager Managed Backup Services: Procedure Note Donotuseinterpreter, Image - 11/28/2024 [place] [address] XRay Report Signed Patient: Maki Luna IMR#: [id number] : 1965Acct:[id number] Age/Sex: 59 / FADM Date: 11/28/24 Loc: HO.ERIKA Attending Dr: Vladislav Kimball MD Ordering Physician: Vladislav Kimball MD Date of Service: 11/28/24 Procedure(s): XR cervical spine 4V Accession Number(s): [id number] cc: Madelyn Rinaldi MD; Vladislav Kimball MD [...] OV> 11/28/24 1536 DD/ 1534 TD/TT: 11/28/24 153 Manager Managed Backup Services: us [facility] External Provider IMG XR PROCEDURES Final Result * Hm Colonoscopy (08/18/2024) Colonoscopy Normal Normal Narrative Zena Lovett - 08/18/2024 Repeat colonoscopy in 10 years .See the external hospital admission note on 08/18/2024 Historical Provider HEALTH MAINTENANCE Final Result * (ABNORMAL) Cologuard?? colon cancer screening (03/17/2024 9:25 AM EDT) Cologuard Result Positive( A) Negative 03/23/2024 12:54 AM EDT [employer] (CLIA #:[id number]) Comment: POSITIVE TEST RESULT. A positive Cologuard [...] (Ganesh Perdomo al, N Engl J Med 2014;370(14):0793-6922.) Cologuard may produce a false negative or false positive result (no colorectal cancer or precancerous polyp present at colonoscopy follow up). A negative Cologuard test result does not guarantee the absence of CRC or advanced adenoma (pre-cancer). The current Cologuard screening interval is every 3 years. ([place] Cancer Society and U.S. Multi-Society Task Force). Cologuard performance data in a 10,000 patient pivotal study using colonoscopy as the reference method can be accessed at the following location: www.[employer].com/results. Additional description of the Cologuard test process, warnings and precautions can be found at www.cologLocAsianrd.com. Stool specimen (specimen) 03/17/2024 9:25 AM EDT 03/18/2024 11:00 AM EDT Madelyn Rinaldi MD LAB MOLECULAR DIAGNOSTIC S ORDERABLES Final Result Performing Organization Address City/[facility]/ZIP Co de Phone Number [employer] (CLIA #:[id number]) [place] [address], * Hepatitis Panel, General (01/06/2024 9:06 AM EDT) Hepatitis A IgM Nonreactive Nonreactive [facility] Comment:IgM antibodies to BLANKENSHIP V not detected; does not exclude earlyacute or recovered HAV infection. ~Hepatitis B Surface Antibody NONREACTIVE Nonreactive [facility] Comment:Nonreactive: < 8.00 mIU/mL Hepatitis B Core Antibody Nonreactive Nonreactive [facility] Hepatitis C Antibody Nonreactive Nonreactive [facility] Comment:Antibodies to HCV no t detected; does not exclude early acuteHCV infection. Hepatitis B Surface Ag Negative Negative [facility] Blood 01/06/2024 9:06 AM EDT 01/06/2024 11:17 AM EDT Madelyn Rinaldi MD LAB BLOOD ORDERABLES Fin al Result Performing Organization Address City/[facility]/ZIP Co de Phone Number [facility] [address] [place] [phone] * HIV-1/2 Antigen and Antibodies, Fourth Generation, with Reflexes (01/06/2024 9:06 AM EDT) HIV AB/AG Nonreactive Nonreactive [facility] Comment:HIV-1 p24 Ag and/or HIV-1/HIV-2 Ab not detected.A test result that is nonreactive does not exclude thepossibility of exposure to or infection with HIV-1 and/orHIV-2. Nonreactive results in this assay for individualswith prior exposure to HIV-1 and/or HIV-2 may be due toantigen and antibody levels that are below the limit ofdetection of this assay.The [employer] HIV Ag/Ab Combo assay result andsupplemental assay results should be interpreted inconjunction with the patient's clinical presentation,history and other laboratory results. If the results areinconsistent with clinical evidence, additional testing issuggested to confirm the result. Blood Venous blood specimen / Unknown 01/06/2024 9:06 AM EDT 01/06/2024 11:17 AM EDT us Madelyn Rinaldi MD LAB BLOOD ORDERABLES Fin al Result [facility] [address] [place] [phone] * HPV mRNA E6/E7 w/Reflex to HPV Genotypes 16, 18/45 (11/20/2023 10:46 AM EDT) HPV nRNA E6/E7 Not Detected Not Detected [facility] Comment:Methodology: Transcr iption-Mediated AmplificationThis assay detects E6/E7 viral messenger RNA (mRNA) from 14high-risk HPV types (16,18,31,33,35,39,45,51,52,56,58,59,66,68).Cervical sources are required for HPV testing.If a vaginal source from a patient who has had atotal hysterectomy with removal of cervix wassubmitted, please contact the testing laboratoryfor alternative testing options.For additional information, please refer tohttp://education.[email or web address]/faq/LCE518f5(This link if provided for information/educational purposes only.)THIS TEST WAS PERFORMED AT:[employer] [place] [id number] MORALES MD HPV mRNA E6/E7 TNP [facility] HPV 16 RNA TNP [facility] HPV 18/45 [facility] 11/20/2023 10:4 6 AM EDT 11/23/2023 10:40 AM EDT us Generic External Data Provider LAB CYTOLOGY ORDE RABLES Final Result [facility] [address] [place] [address] [phone] * Pap Smear (11/20/2023 10:46 AM EDT) 11/20/2023 10:4 6 AM EDT 11/23/2023 10:40 AM EDT [employer] [facility] - 12/22/2023 8:41 AM EDT ----- ------- Name: Maki Luna I Age/Sex: 58/F : 1965 [id number] [id number] Attend Dr: Juany Hui Mary Beth Re11/20/23 Status: DEP REF Location: HO.LNP Disch: ----- ------- SPEC : [id number] RECD: 11/23/23 STATUS: ANUPAM WHEELER NUM: [id number] VON: 11/20/23 [facility] DR: Juany Hui CNM ENTERED: 11/23/23 SP TYPE: Pap Smr OTHR DR: Madelyn Rinaldi MD ORDERED: Pap Smear, PAP path review Interpretation Satisfactory for evaluation. Negative for intraepithelial lesion or malignancy. Inflammation with associated cellular changes. HPV mRNA E6/E7: NOT DETECTED This assay detects E6/E7 viral messenger RNA (mRNA) from 14 high-risk HPV types (16, 18, 31, 33, 35, 39, 45, 51, 52, 56, 58, 59, 66, 68) HPV testing performed by [employer], [place], [place]. See reference laboratory portion of the EMR for entire report. Clinical Information LMP: Postmenopausal Previous PAP test: 11/17/2022, ASCUS Material Received ThinPrep-Cervical Copies To: Madelyn Rinaldi MD [address] [address] Juany Hui CNM [facility] [address] [place] [phone] ----- ------- Signed (signature on file) Theo Wei MD 12/22/23 0841 ----- ------- END OF REPORT us Generic External Data Provider LAB CYTOLOGY TARIK RENAE Final Result [facility] [address] [place] [address] [phone] from Last 3 Months or Most Recently Relevant to Health Maintenance Insurance [employer] Care Teams Technical Asst Relationship Specialty Start Date End Date Madelyn Rinaldi MD [address] [place] [address] PCP - General Internal Medicine 01/04/24
--- OUTSIDE RECORDS SUMMARY | 2025-02-08 15:06 | XMS_ITS | Encounter Summary ---
Author Organization [employer] Address [address] [facility] 7t [place] [address] Care Team Providers Care Pleat Taper Name Role Phone Sade Zhou MD Primary Care Provider + Reason for Visit * Reason Onset Date Comments requesting call back 02/08/2025 Encounter Details Date Type Department Care Team ([facility] Contact Info) Description 02/08/2025 Telephone [facility] [address] [place] [address] Sade Zhou MD [address] [place] [address] requesting call back Social History Tobacco Use Types Packs/Day Years [...] encounter Miscellaneous Notes * Telephone Encounter - Cristin Muñoz RN - 02/08/2025 2:41 PM EDT TC returned to [facility] and confirmed receipt of results. Covering provider: pt. Seen in walk in 02/04/25 after L hand/ wrist injury with pain and swelling, x-ray done yesterday shows 2mm displaced fx of 5th metacarpal neck * Telephone Encounter - Angel Conrad - 02/08/2025 1:49 PM EDT Tc from jocelyn with [facility] inquiring if PCP has received the report of the X ray. Jocelyn needs a confirmation wether the xray was received or not. Contact jocelyn at [phone] documented in this encounter Plan of Treatment Upcoming Encounters Date Type Department Care Team (Late st Contact Info) Description 02/13/2025 10:30 AM EDT Nutrition [facility]NUTRITION [address] [place] [address] Amada Farmer, RD [address] [place], [place] [phone] documented as of this encounter Visit Diagnoses Not on filedocumented in this encounter Additional Health Concerns Assessment Noted Time PHQ-9 Depression Total Score: 5 07/21/19 25 12:14 PM EST documented as of this encounter Care Teams Pleat Taper Relationship Specialty Start Date End Date Sade Zhou MD [address] [place] [phone] PCP - General Internal Medicine 01/04/24 documented as of this encounter
--- OUTSIDE RECORDS SUMMARY | 2025-02-08 15:06 | XMS_ITS | Encounter Summary ---
Author Organization [employer] Address [address] 7[address] [place] [address] Care Team Providers Care Frickertron Checker Name Role Phone Sade Zhou MD Primary Care Provider + Encounter Details Date Type Department Care Team ([facility] st Contact Info) Description 06/14/2024 Orders Only [facility] [address] [place] [address] Rik Hunter MD [address] [place] [address] H. pylori infection (Primary Dx) Social History [...] Info) Description 02/13/2025 10:30 AM EDT Nutrition [facility] [address] [place] [address] [place] [address] Scheduled Orders Name Type Priority Associated Diagnoses [...] documented as of this encounter Care Teams Frickertron Checker Relationship Specialty Start Date End Date Sade Zhou MD [address] [place] [address] PCP - General Internal Medicine 01/04/24 documented as of this encounter
== END 2025-02-08 13:21 | disposition home or self-care (01) ==
PROVIDERS: PCP Internal Medicine; Visit Provider Anesthesiology
DX: M47.816 Spondylosis without myelopathy or radiculopathy, lumbar region (principal); M47.812 Spondylosis without myelopathy or radiculopathy, cervical region; G89.4 Chronic pain syndrome; C92.00 Acute myeloblastic leukemia, not having achieved remission
CPT/HCPCS: 99213

== ENCOUNTER → 2025-02-08 12:43 | Outpatient (BNVA) | payer MEDICAID, SELFPAY | PROVIDERS: PCP Internal Medicine; Visit Provider Anesthesiology | DX: M47.816 Spondylosis without myelopathy or radiculopathy, lumbar region (principal); M47.812 Spondylosis without myelopathy or radiculopathy, cervical region; G89.4 Chronic pain syndrome; C92.00 Acute myeloblastic leukemia, not having achieved remission | CPT/HCPCS: 99212 ==

== ENCOUNTER 2025-03-02 13:09 | Outpatient (RCR) | payer MEDICAID, SELFPAY ==
--- NOTE | 2025-03-03 12:57 | MHC.PT.EP ---
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 She reports chronic low back pain for ~8 years but reports pain worsened over the past ~1 year. She reports onset of constant RLE numbness ~3 month ago. She presents to PT with current impairments in pain, decreased ROM, decreased core stabilization, decreased strength, soft tissue restrictions, decreased balance/proprioception, and impaired gait. She is limited functionally prolonged sitting, prolonged standing, sleeping, carrying items, bending, and stair navigation. She is a good candidate for skilled PT in order to address current impairments to facilitate return to PLOF. She is recommended to be seen 2x/week for 4 weeks and will be reassessed at that time Frequency and Duration: The patient will be seen 2x/week for 4 weeks Short Term Goals: Pt will be I with HEP to promote self management of symptoms Pt will have centralization of symptoms Pt will improve R knee extension strength to at least 4+/5 Certified Health Education Specialist Goals: Pt will demonstrate ability to squat and roller picker object from the floor with proper mechanics Pt will tolerate prolonged standing and walking > 15 minutes without R knee buckling Pt will demonstrate improvements in function as evidenced by statistically significant improvement in Modified Oswestry Low Back Pain Disability Index Questionnaire Treatment Plan: Modalities to reduce pain, spasms and effusion. Manual therapy to restore motion and function. Therapeutic exercise to improve strength and flexibility. Neuromuscular re-education for posture and balance. Therapeutic activities to return to functional activities of daily living. Electronically signed by: Galina Hoskins, PT, DPT Please sign and return to therapist. Thank you for your referral.
--- NOTE | 2025-03-21 15:19 | MHC.PT.DC ---
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 She has had 2 no show appointments since initial PT evaluation. She is being D/C for visit non compliance per [facility] attendance policy as she has had 2 no shows. Pt current level of function unknown at this time Electronically signed by: Galina Barrett, PT, DPT Please sign and return to therapist. Thank you for your referral.
== END 2025-03-21 15:19 | disposition home or self-care (01) ==
LOC: HO.PT 13:09
PROVIDERS: PCP Internal Medicine; Visit Provider Anesthesiology
DX: M47.816 Spondylosis without myelopathy or radiculopathy, lumbar region (principal)
CPT/HCPCS: 97162

== ENCOUNTER 2025-04-14 12:21 | Outpatient (REF) | payer MEDICAID, SELFPAY ==
--- OUTSIDE RECORDS SUMMARY | 2025-04-12 10:15 | XMS_ITS | Encounter Summary ---
Author Organization [employer] Address [address] [place] [address] Care Team Providers Care High Raw Sugar Boiler Name Role Phone Sade Zhou MD Primary Care Provider + Encounter Details Date Type Department Care Team ([facility] st Contact Info) Description 04/12/2025 10:15 AM EST Office Visit [facility] [address] [place] [address] Emilee Rivas, SOCIAL MEDIA EDITOR [address] [place] [address] Dizziness (Primary Dx); H. pylori infection Social History Tobacco Use Types Packs/Day Years [...] Sign Reading Time Taken Comments Blood Pressure 102/80 04/12/2025 10:36 AM EST Pulse 85 04/12/2025 10:36 AM EST Temperature 36.4 C (97.6 F) 04/12/2025 10:34 AM EST Respiratory Rate 14 04/12/2025 10:34 AM EST Oxygen Saturation 97% 04/12/2025 10:34 AM EST Inhaled Oxygen Concentration - - Weight 68 kg (150 lb) 04/12/2025 10:34 AM EST Height 167.6 cm (5' 6 ) 04/12/2025 10:34 AM EST Body Mass Index 24.21 04/12/2025 10:34 AM EST documented in this encounter Progress Notes * Emilee Rivas, FERMIN - 04/12/2025 10:15 AM EST Subjective: Maki Broussard is a 60 y.o. female w/ PMH endometrial hyperplasia, leukemia, radiculopathy, anxiety with depression, who presents to the office for a sick visit. HPI - Reports intermittent mild dizziness and imbalance x 3 days ago. Not as severe as previous episodes, with recurrence after several months without symptoms. Reports episode occurred after not eating breakfast. She was slightly nauseous and had decreased appetite. However, she denies vomiting or diarrhea. She was able to eat fruit and drink water, which helped to improve symptoms. - Also describes mild sweating and nervousness during recent episode, lasted approximately 5 minutes - No positional changes trigger dizziness - No history of hypoglycemia except for one episode months ago, unable to clearly identify trigger - No history of prediabetes or electrolyte disturbances - History of H Pylori and reports feels somewhat similar to symptoms with that infection. Problem List[1] Review of Systems Constitutional: Negative for chills and fever. Cardiovascular: Negative for chest pain and palpitations. Gastrointestinal: Positive for nausea. Negative for diarrhea and vomiting. Neurological: Positive for dizziness. Negative for weakness. Psychiatric/Behavioral: Negative for suicidal ideas. Visit Vitals BP 102/80 (BP Location: Left arm, Patient Position: Standing, BP Cuff Size: Adult) Pulse 85 Temp 97.6 ??F (36.4 ??C) (Oral) Resp 14 Ht 5' 6 (1.676 m) Wt 150 lb (68 kg) SpO2 97% BMI 24.21 kg/m?? OB Status Postmenopausal Smoking Status Never BSA 1.78 m?? Physical Exam Constitutional: Appearance: Normal appearance. HENT: Head: Atraumatic. Right Ear: External ear normal. Left Ear: External ear normal. Eyes: Extraocular Movements: Extraocular movements intact. Pupils: Pupils are equal, round, and reactive to light. Cardiovascular: Rate and Rhythm: Normal rate and regular rhythm. Pulmonary: Effort: Pulmonary effort is normal. Breath sounds: Normal breath sounds. Neurological: General: No focal deficit present. Mental Status: She is alert and oriented to person, place, and time. Psychiatric: Mood and Affect: Mood normal. Behavior: Behavior normal. Problem List Items Addressed This Visit Gastrointestinal and Abdominal H. pylori infection Current Assessment & Plan - Reports symptoms of nausea and decreased appetite somewhat similar to beginning presentation of previous H Pylori infection. Will repeat H Pylori stool test out of caution. Advised to monitor for further GI symptoms. Relevant Orders Helicobacter pylori Antigen, EIA, Stool Other Visit Diagnoses Dizziness - Primary - Dizziness episodes possibly related to low blood sugar or low blood pressure, especially with prolonged fasting or rapid positional changes. Differential includes physiologic hypoglycemia, orthostatic hypotension, vertigo, or other. - Orthostatic vitals in office wnl - BG and A1c in office wnl - Advised to eat regularly and maintain hydration to help prevent symptoms. - Follow up precautions reviewed Relevant Orders POCT Glucose (Completed) POCT Hgb A1c (Completed) Follow up: routine care with PCP, sooner as needed This note was drafted using Ambient (AI) technology. The patient/patient's guardian has been informed and has consented to the use of this technology: Yes [1] Patient Active Problem List Diagnosis Acute myeloid leukemia in remission (CMS/HCC) (HCC) Endometrial hyperplasia without atypia Leukemia in remission (CMS/HCC) (HCC) Radiculopathy, lumbar region Anxiety associated with depression [place] (dyspnea on exertion) Hyperlipidemia LDL goal <130 Encounter for colorectal cancer screening Positive colorectal cancer screening using Cologuard test H. pylori infection Post-nasal drip Dyspepsia Acute myeloid leukemia with minimal differentiation, in remission (CMS/HCC) (HCC) Cervicalgia History of endometrial hyperplasia History of Helicobacter pylori infection IUD check up Myofascial pain on right side Right shoulder pain Scapular dyskinesis Left wrist pain documented in this encounter Miscellaneous Notes * Assessment & Plan Note - FERMIN Rosales - 04/12/2025 4:25 PM ESTAssociated Problem(s): H. pylori infection - Reports symptoms of nausea and decreased appetite somewhat similar to beginning presentation of HPylori infection. Will repeat H Pylori stool test out of caution. Advised to monitor for further GIsymptoms. documented in this encounter Plan of Treatment Scheduled Orders Name Type Priority Associated Diagnoses Orde r Schedule Helicobacter pylori Antigen, EIA, Stool Lab Routine H. pylori infection Expected: 04/12/2025, Expires: 04/12/2026 documented as of this encounter Procedures Procedure Name Priority Date/Time Associated Diagnosis Comments POCT GLYCATED HEMOGLOBIN, TOTAL Routine 04/12/2025 11:10 AM EST Dizziness POCT GLUCOSE Routine 04/12/2025 11:10 AM EST Dizziness documented in this encounter Results * POCT Hgb A1c (04/12/2025 11:10 AM EST) Hemoglobin A1C 5.1 4.0 - 5.7 % QC Media Lot # [id number] Lot# Expiration Date , Blood 04/12/2025 11:1 0 AM EST us Emilee Rivas [facility] POINT OF CARE TEST ENTER/EDIT ORDERABLES Final Result * POCT Glucose (04/12/2025 11:10 AM EST) Glucose Blood, POC 89 60 - 200 mg/dL QC Media Lot # [id number] Lot# Expiration Date 3,026 Blood Capillary blood specimen / Unknown 04/12/2025 11:10 AM EST Emilee Rivas [facility] POINT OF CARE TEST ENTER/EDIT ORDERABLES Final Result documented in this encounter Visit Diagnoses Diagnosis Dizziness- Primary Dizziness and giddiness H. pylori infection Helicobacter pylori (H. pylori) documented in this encounter Additional Health Concerns Assessment Noted Time PHQ-9 Depression Total Score: 5 07/21/19 25 12:14 PM EST documented as of this encounter Care Teams High Raw Sugar Boiler Relationship Specialty Start Date End Date Sade Zhou MD [address] [place] [id number] PCP - General Internal Medicine 01/04/24 documented as of this encounter
--- OUTSIDE RECORDS SUMMARY | 2025-04-14 14:36 | XMS_ITS | Encounter Summary ---
Author Organization [employer] Address [address] [place] [address] Care Team Providers Care Isotope Hydrologist Name Role Phone Sade Zhou MD Primary Care Provider + Encounter Details Date Type Department Care Team (Latest Contact Info) Description 04/12/2025 Travel Social History Tobacco Use Types Packs/Day [...] as of this encounter Plan of Treatment Not on file documented as of this encounter Visit Diagnoses Not on filedocumented in this encounter Additional Health Concerns Assessment Noted Time PHQ-9 Depression Total Score: 5 07/21/19 25 12:14 PM EST documented as of this encounter Care Teams Isotope Hydrologist Relationship Specialty Start Date End Date Sade Zhou MD [address] [place] [id number] PCP - General Internal Medicine 01/04/24 documented as of this encounter
--- OUTSIDE RECORDS SUMMARY | 2025-04-14 14:37 | XMS_ITS | Clinical Summary ---
Author Organization [employer] Address [address] [facility] 7t [place] [address] Care Team Providers Care Geothermal System Installer Name Role Phone Madelyn Rinaldi MD Primary Care Provider + Allergies Active Allergy Reactions Criticality Noted Date Comments Hydroxyzine 01/04/2024 Intolerance: Dry mouth, nausea. Mirtazapine 01/04/2024 GI intolerance Shellfish Allergy 07/21/2024 Ondansetron 06/10/2023 Zolpidem 01/04/2024 Had EP symptoms Medications Spacer/Aero-Hol ding Chambers (OptiChamber Dora) misc 1 each every 4 (four) hours if needed (asthma). 1 each 024 Active montelukast (Singulair) 10 MG tablet Take 10 mg by mouth 1 (one) time each day. Active albuterol 108 (90 Base) MCG/ACT inhalerIndicati ons:Acute cough Inhale 2 puffs every 4 (four) hours if needed for wheezing or shortness of breath. 18 g 1 024 Active nabumetone (Relafen) 500 MG tabletIndicatio ns:Radiculopath y, lumbar region Take 1 tablet (500 mg) by mouth 2 times daily. 180 tablet 3 024 Active fluticasone (Flonase) 50 MCG/ACT nasal sprayIndication s:Post-nasal drip Administer 1 spray into each nostril 2 times daily. 48 g 3 025 Active omeprazole (PriLOSEC) [address] capsule Take 1 capsule (20 mg) by mouth before breakfast. Do not crush or chew. 90 capsule 025 Active busPIRone (Buspar) 10 MG tablet TAKE 1 TABLET BY MOUTH AT BEDTIME 30 tablet 3 025 Active traZODone (Desyrel) 50 MG tablet TAKE 1 TABLET BY MOUTH AT BEDTIME 30 tablet 1 025 Active cyclobenzaprine (Flexeril) 10 MG tabletIndicatio ns:Strain of cervical portion of right trapezius muscle TAKE 1 TABLET BY MOUTH AT BEDTIME NEEDED FOR PAIN OF MUSCLES, DO NOT DRIVE WITH MEDICATION 30 tablet 025 Active Bisacodyl EC 5 MG EC tablet TOME CUATRO TABLETAS POR V A ORAL AT NOON THE DAY BEFORE YOUR COLONOSCOPY 025 Active bismuth subsalicylate (Pepto Bismol) 262 MG chewable tablet TOME DOS TABLETAS POR V A ORAL CUATRO VECES AL D A FOR DIARRHEA FOR 14 DAYS 025 Active metoclopramide (Reglan) 5 MG tablet TOME PAPO TABLETA POR V A ORAL DOS VECES AL D A 025 Active GaviLAX 17 GM/SCOOP powder TAKE 238 GRAMS DISSOLVED IN LIQUID DIRECTED BY GASTROENTEROLOGY DEPT AT [facility] DEPT 025 Active QUEtiapine (SEROquel) 25 MG tablet TOME 1 TABLETA POR V A ORAL TODOS LOS D AL ACOSTARSE CUANDO SEA NECESARIO 025 Active acetaminophen (Tylenol) 500 MG tabletIndicatio ns:Left wrist pain Take 2 tablets (1,000 mg) by mouth every 6 (six) hours if needed for moderate pain or fever for up to 25 doses. 50 tablet 025 Active cetirizine (ZyrTEC) 10 MG tabletIndicatio ns:Post-nasal drip TAKE 1 TABLET BY MOUTH EVERY DAY NEEDED FOR ALLERGIES 90 tablet 025 Active sucralfate (Carafate) 1 GM/10ML suspension TAKE 10 ML (1 G) BY MOUTH IF NEEDED IN THE MORNING, AT NOON, AND AT BEDTIME (AB PAIN/BLOATING). 900 mL 1 025 Active lidocaine (Lidoderm) 5 % patch APPLY 1 PATCH TOPICALLY ONCE PER DAY. REMOVE & DISCARD PATCH WITHIN 12 HOURS OR DIRECTED BY . 30 patch Active lidocaine (Lidoderm) 5 % patch APPLY 1 PATCH TOPICALLY ONCE PER DAY. REMOVE & DISCARD PATCH WITHIN 12 HOURS OR DIRECTED BY . 30 patch 2024 Discontinued Active Problems Problem Noted Date Diagnosed Date Acute myeloid leukemia with minimal differentiation, in remission (CMS/HCC) 02/04/2025 Cervicalgia 02/04/2025 History of endometrial hyperplasia 02/04/2025 History of Helicobacter pylori infection IUD check up 02/04/2025 Myofascial pain on [...] H. pylori infection 06/14/2024 Assessment & Plan (04/12/2025 4:25 PM EST): - Reports symptoms of nausea and decreased appetite somewhat similar to beginning presentation of H Pylori infection. Will repeat H Pylori stool test out of caution. Advised to monitor for further GI symptoms. Assessment & Plan (10/20/2024 2:05 PM EDT): [...] to continue follow-up with pain clinic at [facility], new referral sent Advised to hold Relafen due to GERD, take Tylenol and lidocaine patch Advised regarding physical activity for at least 15 minutes daily Gave her information regarding acupuncture clinic Assessment & Plan (03/07/2024 4:30 PM EDT): FU by [facility] pain clinic, I advised her to call them as she hs not been able to do MRI, to look for another POC Continue flexeril for now, advised her to come for acupuncture clinic. Assessment & Plan (01/05/2024 9:31 AM EDT): Longstanding, seen at [facility] Pain clinic. Advised to get Lumbar MRI, I rx lorazepam 0.25 prn anxiety prior to procedure I told her she can come to our acupuncture clinic Acute myeloid leukemia in remission (CMS/HCC) Assessment & Plan (07/21/2024 12:30 PM EST): [...] reach out for safety. Leukemia in remission (CMS/HCC) 06/08/2016 Overview (01/04/2024): FU'd by Dr Major, [facility]. Assessment & Plan (01/05/2024 9:34 AM EDT): [...] Encounters Date Type Department Care Team Description 04/12/2025 10:15 AM EST Office Visit [facility] [address] [place] [phone] Emilee Rivas, CRIMINOLOGY TEACHER Dizziness (Primary Dx); H. pylori infection 04/12/2025 Travel 04/11/[address] [address] Madelyn Rinaldi MD Nurse Triage 03/23/2025 Refill [facility] [address] [place] [phone] Madelyn Rinaldi MD 03/08/2025 Refill [facility] [address] [place] [phone] Madelyn Rinaldi MD 03/06/[address] [address] Madelyn Rinaldi MD telephone call 02/28/2025 Refill [facility] [address] [place] [phone] Madelyn Rinaldi MD Post-nasal drip 02/22/2025 Refill [facility] [address] [place] [phone] Madelyn Rinaldi MD 02/13/2025 10:30 AM EDT Nutrition [facility] DIABETES/NUTRITION [address] [place] [address] Dyspepsia (Primary Dx); Nausea 02/13/2025 Travel 02/10/2025 Results Follow-Up [facility] [address] [place] [phone] Madelyn Rinaldi MD XR Hand 3+ Views Left 02/09/2025 Refill [facility] [address] [place] [phone] Marva Campbell MD Left wrist pain 02/09/2025 Orders Only [facility] [address] [place] [address] Marva Campbell MD Closed displaced fracture of phalanx of little finger, unspecified laterality, unspecified phalanx, initial encounter (Primary Dx) 02/08/2025 Telephone [facility] [address] [place] [address] Madelyn Rinaldi MD requesting call back 02/04/2025 10:20 AM EDT Office Visit [facility] [address] [place] [address] Sendy Damico MD Left wrist pain (Primary Dx) from Last 3 Months Family History Medical [...] Mass Index 24.21 04/12/2025 10:34 AM EST Plan of Treatment Health Maintenance Due Date Last Done Comments CT Colonography 1967 FIT 1965 Sigmoidoscopy 1965 COVID-19 Vaccine (#1) 1972 DTaP/Tdap/Td Vaccines (1 - Tdap) 1986 Hepatitis B Vaccines (1 of 3 - 19+ 3-dose series) 1986 Pneumococcal Vaccine: 50+ Years (1 of 2 - PCV) 1986 Zoster Vaccines (1 of 2) 1986 Mammogram 2007 SDOH Screening 12/24/2024 12/25/2023 Influenza Vaccine (#1) 2025 FOBT 03/17/2025 03/17/2024 Depression Screening 07/21/2025 07/21/2024, 07/21/2024 Alcohol/Substance Use Screening 10/20/2025 10/20/2024 Disability Screening 10/20/2025 10/20/2024 Tobacco Screening 04/12/2026 04/12/2025 Pap Smear 11/19/2026 11/20/2023 FIT DNA/Cologuard 03/17/2027 [...] GLUCOSE Routine 04/12/2025 11:10 AM EST Dizziness AMB REFERRAL TO ORTHOPAEDIC SURGERY Routine 02/14/2025 Closed displaced fracture of phalanx of little finger, unspecified laterality, unspecified phalanx, initial encounter XR WRIST 3+ VIEWS LEFT Routine 02/08/2025 1:12 PM EDT Left wrist pain XR HAND 3+ VIEWS LEFT Routine 02/08/2025 1:11 PM EDT Left wrist pain HM COLONOSCOPY Routine 08/18/2024 LAB COLOGUARD COLON [...] Recently Relevant to Health Maintenance Results * POCT Hgb A1c (04/12/2025 11:10 AM EST) Hemoglobin A1C 5.1 4.0 - 5.7 % QC Media Lot # [id number] Lot# Expiration Date ,027 Blood 04/12/2025 11:1 0 AM EST Emilee Rivas CRIMINOLOGY TEACHER POINT OF CARE TEST ENTER/EDIT ORDERABLES Final Result * POCT Glucose (04/12/2025 11:10 AM EST) Glucose Blood, POC 89 60 - 200 mg/dL QC Media Lot # [id number] Lot# Expiration Date 3,026 Blood Capillary blood specimen / Unknown 04/12/2025 11:10 AM EST Emilee Rivas CRIMINOLOGY TEACHER POINT OF CARE TEST ENTER/EDIT ORDERABLES Final Result * Referral to Orthopaedic Surgery (02/14/2025) Marva Campbell MD OUTPATIENT REFERRAL ORDERA BLES Final Result * XR Wrist 3+ Views Left (02/08/2025 1:12 PM EDT) Anatomical Region Laterality Modality Upper Extremities, Wrist Left Radiogr aphic Imaging 02/08/2025 1:12 PM EDT Narrative 02/08/2025 1:12 PM EDT [address] [address] XRay Report Signed with Louann Patient: Maki Luna I MR#: [id number] : 1965 Acct:[id number] Age/Sex: 59 / F ADM Date: 02/07/25 Loc: HO.XRAY Attending Dr: Sendy Damico MD Ordering Physician: Sendy Damico Date of Service: 02/07/25 Procedure(s): XR wrist LT min 3V Accession Number(s): [id number] cc: Madelyn Rinaldi MD; Sendy Damico Reason [...] in OV> 02/08/251311 DD/ 11 TD/TT: 02/08/251311 Glue Maker Bone: Procedure Note Donotuseinterpreter, Image - 02/08/[address] [address] XRay Report Signed with [place] Patient: Maki Luna IMR#: [id number] : 1965Acct:[id number] Age/Sex: 59 / FADM Date: 02/07/25 Loc: HO.XRAY Attending Dr: Sendy Damico MD Ordering Physician: Sendy Damico Date of Service: 02/07/25 Procedure(s): XR wrist LT min 3V Accession Number(s): [id number] cc: Madelyn Rinaldi MD; Sendy Damico Reason [...] in OV> 02/08/251311 DD/ 11 TD/TT: 02/08/251311 Glue Maker Bone: Sendy Damico MD IMG XR PROCEDURES Edited Resul t - Final * XR Hand 3+ Views Left (02/08/2025 1:11 PM EDT) Anatomical Region Laterality Modality Upper Extremities, Hand Left Radiogra phic Imaging 02/08/2025 1:11 PM EDT Narrative 02/08/2025 1:12 PM EDT [address] [address] XRay Report Signed Patient: Maki Luna I MR#: [id number] : 1965 Acct:[id number] Age/Sex: 59 / F ADM Date: 02/07/25 Loc: HO.INESAY Attending Dr: Sendy Damico MD Ordering Physician: Sendy Damico Date of Service: 02/07/25 Procedure(s): XR hand LT min 3V Accession Number(s): [id number] cc: Madelyn Rinaldi MD; Sendy Damico Reason [...] MD in OV> 02/08/251311 DD/ 10 TD/TT: 09/03/25 1311 Glue Maker Bone: Procedure Note Donotuseinterpreter, Image - 02/08/[address] [address] XRay Report Signed Patient: Maki Luna [facility]#: [id number] : 1965Acct:[id number] Age/Sex: 59 / FADM Date: 02/07/25 Loc: AB Attending Dr: Sendy Damico MD Ordering Physician: Sendy Damico Date of Service: 02/07/25 Procedure(s): XR hand LT min 3V Accession Number(s): [id number] cc: Madelyn Rinaldi MD; Sendy Damico Reason [...] 02/08/25 1312 DD/ 1311 TD/TT: 02/08/25 1311 Glue Maker Bone: us Sendy Damico MD IMG XR PROCEDURES Final Result * Colonoscopy (08/18/2024) Colonoscopy Normal Normal Narrative Zena Lovett - 08/18/2024 Repeat colonoscopy in 10 years .See the external hospital admission note on 08/18/2024 Historical Provider HEALTH MAINTENANCE Final Result * (ABNORMAL) Cologuard?? colon cancer screening (03/17/2024 9:25 AM EDT) Cologuard Result Positive( A) Negative 03/23/2024 12:54 AM EDT [facility] (CLIA #:[id number]) Comment: POSITIVE TEST RESULT. A positive Cologuard [...] screened with both Cologuard and colonoscopy. (Ganesh Padgett et al, N Engl J Med 2014;370(14):9883-6593.) Cologuard may produce a false negative or false positive result (no colorectal cancer or precancerous polyp present at colonoscopy follow up). A negative Cologuard test result does not guarantee the absence of CRC or advanced adenoma (pre-cancer). The current Cologuard screening interval is every 3 years. ([place] [employer] Society and U.S. Multi-Society Task Force). Cologuard performance data in a 10,000 patient pivotal study using colonoscopy as the reference method can be accessed at the following location: www.ecomom/results. Additional description of the Cologuard test process, warnings and precautions can be found at www.cologuard.com. Stool specimen (specimen) 03/17/2024 9:25 AM EDT 03/18/2024 11:00 AM EDT Madelyn Rinaldi MD LAB MOLECULAR DIAGNOSTIC S ORDERABLES Final Result Performing Organization Address City/[facility]/ZIP Co de Phone Number [facility] (CLIA #:[id number]) [place] [address], * Hepatitis Panel, General (01/06/2024 9:06 AM EDT) Hepatitis A IgM Nonreactive Nonreactive [facility] Comment:IgM antibodies to BLANKENSHIP V not detected; does not exclude earlyacute or recovered HAV infection. ~Hepatitis B Surface Antibody NONREACTIVE Nonreactive [facility] Comment:Nonreactive: < 8.00 mIU/mL Hepatitis B Core Antibody Nonreactive Nonreactive [facility] Hepatitis C Antibody Nonreactive Nonreactive [facility] Comment:Antibodies to HCV no t detected; does not exclude early acuteHCV infection. Hepatitis B Surface Ag Negative Negative [facility] Blood 01/06/2024 9:06 AM EDT 01/06/2024 11:17 AM EDT Madelyn Rinaldi MD LAB BLOOD ORDERABLES Fin al Result Performing Organization Address [facility] Co de Phone Number [facility] [address] [place] [phone] * HIV-1/2 Antigen and Antibodies, Fourth Generation, with Reflexes (01/06/2024 9:06 AM EDT) HIV AB/AG Nonreactive Nonreactive [facility] Comment:HIV-1 p24 Ag and/or HIV-1/HIV-2 Ab not detected.A test result that is nonreactive does not exclude thepossibility of exposure to or infection with HIV-1 and/orHIV-2. Nonreactive results in this assay for individualswith prior exposure to HIV-1 and/or HIV-2 may be due toantigen and antibody levels that are below the limit ofdetection of this assay.The [employer] HIV Ag/Ab Combo assay result andsupplemental assay results should be interpreted inconjunction with the patient's clinical presentation,history and other laboratory results. If the results areinconsistent with clinical evidence, additional testing issuggested to confirm the result. Blood Venous blood specimen / Unknown 01/06/2024 9:06 AM EDT 01/06/2024 11:17 AM EDT us Madelyn Rinaldi MD LAB BLOOD ORDERABLES Fin al Result [facility] [address] [place] [phone] * HPV mRNA E6/E7 w/Reflex to HPV Genotypes 16, 18/45 (11/20/2023 10:46 AM EDT) HPV nRNA E6/E7 Not Detected Not Detected [facility] Comment:Methodology: Transcr iption-Mediated AmplificationThis assay detects E6/E7 viral messenger RNA (mRNA) from 14high-risk HPV types (16,18,31,33,35,39,45,51,52,56,58,59,66,68).Cervical sources are required for HPV testing.If a vaginal source from a patient who has had atotal hysterectomy with removal of cervix wassubmitted, please contact the testing laboratoryfor alternative testing options.For additional information, please refer tohttp://[email or web address]/faq/ZUW786k1(This link if provided for information/educational purposes only.)THIS TEST WAS PERFORMED AT:[facility] [place] [phone] MORALES MD HPV mRNA E6/E7 [facility] HPV 16 RNA [facility] HPV 18/45 RNA [facility] 11/20/2023 10:4 6 AM EDT 11/23/2023 10:40 AM EDT us Generic External Data Provider LAB CYTOLOGY TARIK RENAE Final Result [facility] [address] [place] [phone] * Pap Smear (11/20/2023 10:46 AM EDT) 11/20/2023 10:4 6 AM EDT 11/23/2023 10:40 AM EDT Narrative [facility] - 12/22/2023 8:41 AM EDT ----- ------- Name: Maki Luna I Age/Sex: 58/F : 1965 Unit#: [id number] Attend Dr: Juany Hui CNM Re11/20/23 Status: DEP REF Location: HO.LNP Disch: ----- ------- SPEC : [id number] RECD: 11/23/23 STATUS: ANUPAM WHEELER NUM: [id number] VON: 11/20/23-[address]: Juany Hui CNM ENTERED: 11/23/23-1101 SP TYPE: Pap Smr OTHR DR: Madelyn [...] 59, 66, 68) HPV testing performed by [employer], [place], [place]. See reference laboratory portion of the EMR for entire report. Clinical Information LMP: Postmenopausal Previous PAP test: 11/17/2022, ASCUS Material Received ThinPrep-Cervical Copies To: Madelyn Rinaldi MD [address] [address] Juany Hui CNM [facility] [address] [place] [address] ----- ------- Signed (signature on file) Theo Wei MD 12/22/23 0841 ----- ------- END OF REPORT us Generic External Data Provider LAB CYTOLOGY TARIK RENAE Final Result [facility] [address] [place] [phone] [phone] from Last 3 Months or Most Recently Relevant to Health Maintenance Insurance [facility] C3 Care Teams Geothermal System Installer Relationship Specialty Start Date End Date Madelyn Rinaldi MD [address] [place] [phone] PCP - General Internal Medicine 01/04/24
--- OUTSIDE RECORDS SUMMARY | 2025-04-14 14:37 | XMS_ITS | Encounter Summary ---
Author Organization [employer] Address [address] [place] [address] Care Team Providers Care Technical Buyer Name Role Phone Sade Zhou MD Primary Care Provider + Encounter Details Date Type Department Care Team ([facility] st Contact Info) Description 06/14/2024 Orders Only [facility] [address] [place] [address] Rik Hunter MD [address] [place] [address] H. pylori infection (Primary Dx) Social History [...] as of this encounter Plan of Treatment Scheduled Orders [...] documented as of this encounter Care Teams Technical Buyer Relationship Specialty Start Date End Date Sade Zhou MD [address] [place] [phone] PCP - General Internal Medicine 01/04/24 documented as of this encounter
--- OUTSIDE RECORDS SUMMARY | 2025-04-14 14:37 | XMS_ITS | Encounter Summary ---
Author Organization [employer] Address [address] [facility] [address] [place] [address] Care Team Providers Care Air Boatswain Name Role Phone Sade Zhou MD Primary Care Provider + Reason for Visit * Reason Onset Date Comments Nurse Triage 04/11/2025 Encounter Details Date Type Department Care Team ([facility] st Contact Info) Description 04/11/2025 Telephone [facility] [address] [place] [address] Sade Zhou MD [address] [place] [address] Nurse Triage Social History Tobacco Use Types Packs/Day Years [...] encounter Miscellaneous Notes * Telephone Encounter - Tess Calvo RN - 04/11/2025 2:39 PM EST Telephone call to pt via [employer] [phone]. Pt states she has developed nausea, dizziness x 3 days, feels like she wants to throw up but hasn't, denies fever, diarrhea. States she is drinking water and eating fruit. Not on chemo meds anymore or new medications. States the dizziness is worse when shegets up from laying down, lasts 3-4 minutes, then resolves until movement provokes it again. Confirms can walk, has mild numbness in right foot but denies numbness/tingling or sudden weakness on one side of the body, feels unbalanced when walking but states she does not feel like she will pass out.She states this has happened in the past but it resolved with some liquid . Information Technology Auditor encouraged pt to come to [facility] today but pt declined due to wanting to wait for her sister and avoid the wind outside. Booked sick on site appt tomorrow. 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 Educated on home care advice: staying well hydrated with water, zack stephany, gatorade, taking small bites of food, resting between changing positions. Protocol Used: Dizziness (Adult) Protocol-Based Disposition: See in Office or Video Visit Today Positive Triage Question: * Moderate dizziness (e.g., interferes with normal activities) (Exception: Dizziness caused by heatexposure, sudden standing, or poor fluid intake.) * All higher-acuity triage questions were negative Care Advice Discussed: * Drink Fluids * Lie Down and Rest * Prevention - Dizziness * Reasons To Call Back - After 2 hours of rest and fluids and you are still feeling dizzy - You pass out (faint) or are too weak to stand - You become worse * Telephone Encounter - Janneth Garcia - 04/11/2025 1:43 PM EST Symptoms: Nausea But No Vomiting, Dizziness Outcome: Schedule an urgent appointment (within 4 hours) or talk to a nurse or provider soon Reason: Started within the past 3 days Contact pt at [phone] (german) documented in this encounter Plan of Treatment Not on file documented as of this encounter Visit Diagnoses Not on filedocumented in this encounter Additional Health Concerns Assessment Noted Time PHQ-9 Depression Total Score: 5 07/21/19 25 12:14 PM EST documented as of this encounter Care Teams Air Boatswain Relationship Specialty Start Date End Date Sade Zhou MD [address] [place] [phone] PCP - General Internal Medicine 01/04/24 documented as of this encounter
== END 2025-04-14 12:22 | disposition home or self-care (01) ==
LOC: HO.LNP 12:21
PROVIDERS: Visit Provider Registered Nurse
DX: A04.8 Other specified bacterial intestinal infections (principal)
CPT/HCPCS: 87338

== ENCOUNTER 2025-06-07 09:00 | Outpatient (AMB) | payer MEDICAID, SELFPAY ==
[2025-06-07 09:05] VITALS: BP 108/72; PULSE 77; RESP 16; O2SAT 98; BMI 24.4
--- NOTE | 2025-06-07 09:05 | A.OFFVIS_ITS ---
Vital Signs 06/07/25 09:05 Height 5 ft 6 in Weight 151 lb BMI 24.4 BP 108/72 Blood Pressure Location Rt brachial Position Sitting Respiration 16 Pulse 77 Pulse Source Pulse Oximeter Pulse Oximetry (%) 98 Oxygen Delivery Method Room Air Intake Visit Reasons: 1 Month Follow Up Adebayo from 05/03/25 Nuclear Auxiliary Operator Required: Yes Nuclear Auxiliary Operator Language: Filter Plant Operator Name: Sade Nolasco [phone] Accompanied by: Self / Same As Patient Allergies ondansetron (From ZOFRAN ( HYDROCHLORIDE)) Allergy (Intermediate, Verified 06/07/25 09:11) INVOLUNTARY MOVEMENTS;MENTAL BLOCK Seasonal Allergies Allergy (Mild, Verified 06/07/25 09:11) Sneezing HPI Comments Details: Maki again is back in my office after significant period of absence. She again did not go for physical therapy which was ordered for her. I explained to the patient that in the order to perform the procedures on her cervical spine as well as on her lumbar spine she needs to complete physical therapy. The patient was asking me to prescribe her oral medications to treat her pain. I explained to her that she is in the office of anesthesiologists who treat the pain with injections. If she wants to get oral medications she may go to primary care physician for the prescription. She does not want to go to physical therapy. Therefore in this office she can not be helped. Prior: severe pain in the lower lumbar spine. She never had physical therapy for the lumbar spine. One year ago she was here for pain in the right shoulder in the projection of the right shoulder blade as well as pain in the right knee and the right hip. She relates her pain in the knee and the hip to frequent falls she has in the past 3 years. She reports instant weakness in the right side of the body after which she falls. She was sent to neurologist for EMG on the right side which did not demonstrate any pathology. She was treated with our Oncology office for acute myeloid leukemia according to her she is currently in remission. 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 She reported that she saw her oncologist few days ago. We need to obtain the information about her condition from oncology office. She also was examined in the office of orthopedic surgery and diagnosed with scapular dyskinesia. She was recommended physical therapy. [facility] Medical History History of endometrial hyperplasia History of Helicobacter pylori infection Endometrial hyperplasia without atypia Leukemia Surgical History Hx of tubal ligation Family History Paternal Aunt Throat cancer Sister HX: breast cancer, Onset Age: 50 Maternal Aunt HX: breast cancer Asthma Mother Hypertension Social History Household Members: None Housing: Apartment Are you a primary rn care manager to a significant other at home: No Do you presently have visiting nurse or other home services: No Alcohol intake: former Patient Tobacco Use Status: Never used Tobacco service: No Current occupational status: unemployed Review of Systems Const All systems reviewed & are unremarkable except as noted in HPI and below Eyes Denies photophobia ENT Reports Normal hearing present Neuro Reports Normal hearing present Physical Exam Vital Signs: Last Vital Signs Pulse 77 06/07/25 09:05 Resp 16 06/07/25 09:05 BP 108/72 06/07/25 09:05 Pulse Ox 98 06/07/25 09:05 Oxygen Delivery Method Room Air 06/07/25 09:05 BMI result Body Mass Index 24.4 Const General: cooperative, healthy appearing, no acute distress and alert Orientation/consciousness: patient oriented x3 Limitations: No ambulation with cane, No ambulation with walker and No wheelchair HEENT Head: Yes normal to inspection, Yes normocephalic and Yes atraumatic Ears: hearing grossly normal bilaterally Eyes General: appearance normal, both eyes and all related structures Eyelids: Yes eyelids normal Sclerae: sclerae normal Pupils: Equal, round and reactive pupils present EOM: EOMs intact bilaterally Direct Ophthalmoscopy: No photophobia Neck Neck: Yes normal visual inspection, Yes full ROM, Yes trachea midline and Yes no JVD Chest Chest palpation & inspection: normal inspection of the chest Resp Effort & Inspection: normal respiratory effort, able to speak in complete sentences and no audible wheezes Cardio Jugular venous distension: no JVD Palpation: other (no appreciable rhythmic abnormalities) Peripheral pulses: radial pulses present (no palpable rhythmic abnormalities detected) bilateral and other Back/Spine/Pelvis Other: Tenderness on palpation in paraspinal spinal region lumbar spine. Loading test is positive bilaterally. Cervical Spine: cervical ROM normal Neuro General: patient oriented x3, gait normal, moves all extremities and Normal light touch and pain sensation Cranial nerves: Yes CN's II-XII intact bilaterally (Tenderness on palpation right branch of trigeminal), Yes Equal, round and reactive pupils present and Yes Normal hearing present Cognition (Neuro): normal cognition Gait exam (Neuro): Normal gait present Motor exam (neuro): 5/5 motor strength present throughout, Pronator motor function not present, no tremor noted, Motor fasciculations not present and Abnormal motor strength present Extrem General: Yes normal to inspection, Yes full ROM and Yes no pedal edema Psych Appearance: grossly normal Speech and movement: Normal speech and movement present and Clear speech present Affect: normal affect Attitude: cooperative Thought process: Normal thought process present Thought content: Normal thought content present Insight: Good insight present (Psych) Judgement: Good judgement present (Psych) Results Reviewed Results Reviewed: XR cervical spine 4V Accession Number(s): [id number] cc: Sade Zhou MD; Vladislav Kimball MD~ CLINICAL HISTORY: M47.812 - Spondylosis without myelopathy or radiculopathy, cervical region 6 views cervical spine Comparison: None provided Findings: Normal vertebral body alignment. No acute fractures or dislocation. Multilevel disc space narrowing and endplate osteophyte formation, as well as facet hypertrophy. No prevertebral soft tissue swelling. IMPRESSION: No acute findings. Assessment & Plan Assessment & Plan (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: Code(s): M47.816 - Spondylosis without myelopathy or radiculopathy, lumbar region Category: Medical (2) Spondylosis of cervical joint without myelopathy: Code(s): M47.812 - Spondylosis without myelopathy or radiculopathy, cervical region Category: Medical (3) Chronic pain syndrome: Code(s): G89.4 - Chronic pain syndrome Category: Medical (4) Acute myeloid leukemia: Code(s): C92.00 - Acute myeloblastic leukemia, not having achieved remission Category: Medical Plan Maki is 60 years old female who is on 3rd time in my office. Each time she was in my office requesting help with the pain in the lower back and neck. She was diagnose with spondylosis of cervical spine and lumbar spine. Potentially injections can not be done to treat both conditions however she needs to go to physical therapy 1st in the order to be eligible for those injections. However patient is negative about going for physical therapy. She wants me to prescribe her oral medications to treat her pain. I explained to her that if she wants to get oral medications to treat her pain she needs to go to primary care physician. Patient expressed understanding. Please do not schedule appointment with me for this patient unless she completed at least 8 sessions of physical therapy with home exercise program before visiting me. CBC is normal, somehow she did not submit her INR but in 2018 her INR was normal, no history of liver problems, not on blood thinners.. Coding Level of Care Code Est Pt Level 3 (82259) Diagnoses Spondylosis of lumbar region without myelopathy or radiculopathy M47.816 Spondylosis of cervical joint without myelopathy M47.812 Chronic pain syndrome G89.4 Acute myeloid leukemia C92.00
--- OUTSIDE RECORDS SUMMARY | 2025-06-07 09:10 | XMS_ITS | Clinical Summary ---
Author Organization [employer] Address [address] [facility] [address] [place] [address] Care Team Providers Care Supervisor Cutting And Sewing Room Name Role Phone Madelyn Rinaldi MD Primary [...] IN LIQUID DIRECTED BY GASTROENTEROLOGY DEPT AT [facility] DEPT 025 Active QUEtiapine (SEROquel) 25 MG tablet TOME 1 TABLETA POR V A ORAL TODOS LOS D AL ACOSTARSE CUANDO SEA NECESARIO 025 Active lidocaine (Lidoderm) 5 % patch APPLY 1 PATCH TOPICALLY ONCE PER DAY. REMOVE & DISCARD PATCH WITHIN 12 HOURS OR DIRECTED BY MD. 30 patch 025 Active cetirizine (ZyrTEC) 10 MG tabletIndicatio ns:Post-nasal drip TAKE 1 TABLET BY MOUTH EVERY DAY NEEDED FOR ALLERGIES 90 tablet 025 Active Acetaminophen Extra Strength 500 MG tabletIndicatio ns:Left wrist pain TAKE 2 TABLETS BY MOUTH EVERY 6 HOURS NEEDED FOR MODERATE PAIN OR FEVER 50 tablet 025 Active sucralfate (Carafate) 1 GM/10ML suspension TAKE 10 ML (1 G) BY MOUTH IF NEEDED IN THE MORNING, AT NOON, AND AT BEDTIME (AB PAIN/BLOATING). 900 mL 1 025 Active acetaminophen (Tylenol) 500 MG tabletIndicatio ns:Left wrist pain Take 2 tablets (1,000 mg) by mouth every 6 (six) hours if needed for moderate pain or fever for up to 25 doses. 50 tablet 025 2024 Discontinued cetirizine (ZyrTEC) 10 MG tabletIndicatio ns:Post-nasal drip TAKE 1 TABLET BY MOUTH EVERY DAY NEEDED FOR ALLERGIES 90 tablet 025 2024 Discontinued sucralfate (Carafate) 1 GM/10ML suspension TAKE 10 ML (1 G) BY MOUTH IF NEEDED IN THE MORNING, AT NOON, AND AT BEDTIME (AB PAIN/BLOATING). 900 mL 1 025 2024 Discontinued Active Problems Problem Noted Date [...] to continue follow-up with pain clinic at [facility], new referral sent Advised to hold Relafen due to GERD, take Tylenol and lidocaine patch Advised regarding physical activity for at least 15 minutes daily Gave her information regarding acupuncture clinic Assessment & Plan (03/07/2024 4:30 PM EDT): FU by [facility] pain clinic, I advised her to call them as she hs not been able to do MRI, to look for another POC Continue flexeril for now, advised her to come for acupuncture clinic. Assessment & Plan (01/05/2024 9:31 AM EDT): Longstanding, seen at [facility] Pain clinic. Advised to get Lumbar MRI, [...] Doing better on buspar daily FU with MH counselor. She feels safe at home and [...] 06/08/2016 Overview (01/04/2024): FU'd by Dr Major, [facility]. Assessment & Plan (01/05/2024 9:34 AM EDT): [...] Encounters Date Type Department Care Team Description 05/30/2025 Telephone [facility] [address] [place] [phone] Madelyn Rinaldi MD August recall 05/14/2025 Refill [facility] [address] [place] [address] [phone] Madelyn Rinaldi MD 05/11/2025 Refill [facility] [address] [place] [phone] Madelyn Rinaldi MD Post-nasal drip; Left wrist pain 04/23/2025 Results Follow-Up [facility] [address] [place], [place] [phone] Emilee Rivas, FERMIN Helicobacter pylori Antigen, EIA, Stool, POCT Glucose, POCT Hgb A1c 04/12/2025 10:15 AM EST Office Visit [address] [phone] Emilee Rivas FNP Dizziness (Primary Dx); H. pylori infection 04/12/2025 Travel 04/11/[address] [phone] Madelyn Rinaldi MD Nurse Triage 03/23/2025 Refill [facility] [address] [place] [address] [phone] Madelyn Rinaldi MD 03/08/2025 Refill [facility] [address] [place] [address] [phone] Madelyn Rinaldi MD from Last 3 Months Family History Medical [...] 04/12/2025 10:34 AM EST Plan of Treatment Upcoming Encounters Date Type Department Care Team (Late st Contact Info) Description 06/19/2025 2:00 PM EST Clinical Support [facility] DIABETES/NUTRITION [address] [place] [address] [place] [address] 07/26/2025 11:30 AM EST Office Visit [facility]INE [address] [place], [place] [phone] Madelyn Rinaldi MD [address] [place], [place] [phone] Health Maintenance Due Date Last Done Comments [...] 11/19/2028 HPV/Cotest 11/19/2028 11/20/2023, 11/20/2023 Colonoscopy 08/18/2034 08/18/2024, 08/18/2024 Colorectal Cancer Screening 08/18/2034 RSV Patients [...] Comments HELICOBACTER PYLORI AG, EIA, STOOL Routine 04/14/2025 7:00 AM EST H. pylori infection POCT GLYCATED HEMOGLOBIN, TOTAL Routine 04/12/2025 11:10 AM EST Dizziness POCT GLUCOSE (CPT-12519) Routine 04/12/2025 11:10 AM EST Dizziness COLONOSCOPY Routine 08/18/2024 LAB COLOGUARD COLON CANCER [...] Recently Relevant to Health Maintenance Results * Helicobacter pylori??Antigen, EIA, Stool (04/14/2025 7:00 AM EST) H pylori Ag Stool SEE NOTE [facility] Comment:HELICOBACTER PYLORI AG, EIA, STOOL Micro Number: [id number] Test Status: Final Specimen Source: Stool Specimen Quality: Adequate H.pylori Ag: Not Detected Antimicrobials, proton pump inhibitors, and bismuth preparations inhibit H. pylori and ingestion up to two weeks prior to testing may cause false negative results. If clinically indicated the test should be repeated on a new specimen obtained two weeks after discontinuing treatment. Reference Range: Not DetectedTHIS TEST WAS PERFORMED AT:[email or web address] [address] [phone] MORALES MD Stool Rectal contents / Unknown 04/14/2025 7:00 AM EST 04/14/2025 12:23 PM EST us Emilee CHRISTENSEN LAB BODY FLUIDS AND STOOLS ORD ERABLES Final Result [facility] [address] [place] [phone] * POCT Hgb A1c (04/12/2025 11:10 AM EST) Hemoglobin A1C 5.1 4.0 - 5.7 % QC Media Lot # [id number] Lot# Expiration Date ,418 Blood 04/12/2025 11:1 0 AM EST us Emilee iRvas C SOFTWARE ENGINEER POINT OF CARE TEST ENTER/EDIT ORDERABLES Final Result * POCT Glucose (04/12/2025 11:10 AM EST) Glucose Blood, POC 89 60 - 200 mg/dL QC Media Lot # [id number] Lot# Expiration Date [id number] Blood Capillary blood specimen / Unknown 04/12/2025 11:10 AM EST Emilee Rivas C SOFTWARE ENGINEER POINT OF CARE TEST ENTER/EDIT ORDERABLES Final Result * Hm Colonoscopy (08/18/2024) Colonoscopy Normal Normal Narrative Zena Lovett - 08/18/2024 Repeat colonoscopy in 10 years .See the external hospital admission note on 08/18/2024 Historical Provider MD HEALTH MAINTENANCE Final Result * (ABNORMAL) Cologuard?? colon cancer screening (03/17/2024 9:25 AM EDT) Cologuard Result Positive( A) Negative 03/23/2024 12:54 AM EDT [email or web address] (CLIA #:[id number]) Comment: POSITIVE TEST RESULT. A positive Cologuard [...] were screened with both Cologuard and colonoscopy. (Imperiale T. et al, N Engl J Med 2014;370(14):3190-8296.) Cologuard may produce a false negative or false positive result (no colorectal cancer or precancerous polyp present at colonoscopy follow up). A negative Cologuard test result does not guarantee the absence of CRC or advanced adenoma (pre-cancer). The current Cologuard screening interval is every 3 years. ([place] [employer] Society and U.S. Multi-Society Task Force). Cologuard performance data in a 10,000 patient pivotal study using colonoscopy as the reference method can be accessed at the following location: www.InfoNow.com/results. Additional description of the Cologuard test process, warnings and precautions can be found at www.cologuard.com. Stool specimen (specimen) 03/17/2024 9:25 AM EDT 03/18/2024 11:00 AM EDT Madelyn Rinaldi MD LAB MOLECULAR DIAGNOSTIC S ORDERABLES Final Result [email or web address] (CLIA #:[id number]) [place] [address], [place] [phone] * Hepatitis Panel, General (01/06/2024 9:06 AM EDT) Hepatitis A IgM Nonreactive Nonreactive [facility] Comment:IgM antibodies to BLANKENSHIP V not detected; does not exclude earlyacute or recovered HAV infection. ~Hepatitis B Surface Antibody NONREACTIVE Nonreactive [facility] Comment:Nonreactive: < 8.00 mIU/mL Hepatitis B Core Antibody Nonreactive Nonreactive [facility] Hepatitis C Antibody Nonreactive Nonreactive [facility] Comment:Antibodies to HCV no t detected; does not exclude early acuteHCV infection. Hepatitis B Surface Ag Negative Negative [facility] Blood 01/06/2024 9:06 AM EDT 01/06/2024 11:17 AM EDT Madelyn Rinaldi MD LAB BLOOD ORDERABLES Fin al Result Performing Organization Address [facility] Co de Phone Number [facility] [address] [place] [address] [phone] * HIV-1/2 Antigen and Antibodies, Fourth Generation, with Reflexes (01/06/2024 9:06 AM EDT) HIV AB/AG Nonreactive Nonreactive [facility] Comment:HIV-1 p24 Ag and/or HIV-1/HIV-2 Ab not detected.A test result that is nonreactive does not exclude thepossibility of exposure to or infection with HIV-1 and/orHIV-2. Nonreactive results in this assay for individualswith prior exposure to HIV-1 and/or HIV-2 may be due toantigen and antibody levels that are below the limit ofdetection of this assay.The kaleo HIV Ag/Ab Combo assay result andsupplemental assay results should be interpreted inconjunction with the patient's clinical presentation,history and other laboratory results. If the results areinconsistent with clinical evidence, additional testing issuggested to confirm the result. Blood Venous blood specimen / Unknown 01/06/2024 9:06 AM EDT 01/06/2024 11:17 AM EDT us Madelyn Rinaldi MD LAB BLOOD ORDERABLES Fin al Result Performing Organization Address [facility] Co de Phone Number [facility] [address] [place] [address] [phone] * HPV mRNA E6/E7 w/Reflex to HPV Genotypes 16, 18/45 (11/20/2023 10:46 AM EDT) HPV nRNA E6/E7 Not Detected Not Detected [facility] Comment:Methodology: Transcr iption-Mediated AmplificationThis assay detects E6/E7 viral messenger RNA (mRNA) from 14high-risk HPV types (16,18,31,33,35,39,45,51,52,56,58,59,66,68).Cervical sources are required for HPV testing.If a vaginal source from a patient who has had atotal hysterectomy with removal of cervix wassubmitted, please contact the testing laboratoryfor alternative testing options.For additional information, please refer tohttp://education.[employer]/faq/XIB652e8(This link if provided for information/educational purposes only.)THIS TEST WAS PERFORMED AT:[facility] [place] [phone] MORALES MD HPV mRNA E6/E7 [facility] HPV 16 RNA TNP [facility] HPV 18/45 RNA [facility] 11/20/2023 10:4 6 AM EDT 11/23/2023 10:40 AM EDT us Generic External Data Provider LAB CYTOLOGY ORDE OC Final Result Performing Organization Address City/State/[facility] Co de Phone Number [facility] [address] [place] [phone] * Pap Smear (11/20/2023 10:46 AM EDT) 11/20/2023 10:4 6 AM EDT 11/23/2023 10:40 AM EDT Narrative [facility] - 12/22/2023 8:41 AM EDT ----- ------- Name: Maki Luna I Age/Sex: 58/F : 1965 Unit#: [id number] Attend Dr: Juany Hui CNM Re11/20/23 Status: DEP REF Location: [facility] Disch: ----- ------- SPEC : [id number] RECD: 11/23/23 STATUS: ANUPAM WHEELER NUM: [id number] VON: 11/20/[address] [facility] [address]: Juany Hui CNM ENTERED: 11/23/23 [...] 59, 66, 68) HPV testing performed by [facility], [place], [place]. See reference laboratory portion of the EMR for entire report. Clinical Information LMP: Postmenopausal Previous PAP test: 11/17/2022, ASCUS Material Received ThinPrep-Cervical Copies To: Madelyn Rinaldi MD [address] [address] Juany Hui CNM [facility] [address] [place] [address] Drive [address] [place] [address] ----- ------- Signed (signature on file) Theo Wei MD 12/22/23 0841 ----- ------- END OF REPORT us Generic External Data Provider LAB CYTOLOGY TARIK RENAE Final Result [facility] [address] [place] [address] [phone] from Last 3 Months or Most Recently Relevant to Health Maintenance Insurance [employer] C3 Care Teams Supervisor Cutting And Sewing Room Relationship Specialty Start Date End Date Madelyn Rinaldi MD [address] [place] [phone] PCP - General Internal Medicine 01/04/24
--- OUTSIDE RECORDS SUMMARY | 2025-06-07 09:10 | XMS_ITS | Encounter Summary ---
Author Organization [employer] Address [address] [facility] [address] [place] [address] Care Team Providers Care Dishwashing Machine Repairer Name Role Phone Sade Zhou MD Primary Care Provider + Encounter Details Date Type Department Care Team ([facility] st Contact Info) Description 06/14/2024 Orders Only [facility] [address] [place] [address] Rik Hunter MD [address] [place] [address] H. pylori infection (Primary Dx) Social History [...] Description 06/19/2025 2:00 PM EST Clinical Support [facility] DIABETES/NUTRITION [address] [place] [phone] [place] [address] 07/26/2025 11:30 AM EST Office Visit [facility] MEDICINE [address] [place] [phone] Sade Zhou MD [address] [place] [phone] Scheduled Orders Name Type Priority Associated Diagnoses [...] documented as of this encounter Care Teams Dishwashing Machine Repairer Relationship Specialty Start Date End Date Sade Zhou MD [address] [place] [phone] PCP - General Internal Medicine 01/04/24 documented as of this encounter
== END 2025-06-07 09:17 | disposition home or self-care (01) ==
LOC: HO.PMC 09:01
PROVIDERS: PCP Internal Medicine; Visit Provider Anesthesiology
DX: M47.816 Spondylosis without myelopathy or radiculopathy, lumbar region (principal); M47.812 Spondylosis without myelopathy or radiculopathy, cervical region; G89.4 Chronic pain syndrome; C92.00 Acute myeloblastic leukemia, not having achieved remission
CPT/HCPCS: 99213

== ENCOUNTER → 2025-06-07 09:00 | Outpatient (BNVA) | payer MEDICAID, SELFPAY | PROVIDERS: PCP Internal Medicine; Visit Provider Anesthesiology | DX: M47.816 Spondylosis without myelopathy or radiculopathy, lumbar region (principal); M47.812 Spondylosis without myelopathy or radiculopathy, cervical region; G89.4 Chronic pain syndrome; C92.00 Acute myeloblastic leukemia, not having achieved remission | CPT/HCPCS: 99212 ==